=== PATIENT | female | born 1940 | race Caucasian/White ===

== ENCOUNTER 2016-04-17 20:26 | Observation (INO) ==
[2016-04-17 21:19] LABS: INR 1.3; Prothrombin Time 13.9 Seconds (9.4-12.1)
[2016-04-17 21:22] LABS: Activated Partial Thrombo Time 32.6 Seconds (26.0-36.0); Basophils # 0.1 K/mcL (0.0-0.2); Basophils % 0.7 %; Eosinophils # 0.6 K/mcL (0.0-0.6); Eosinophils % 4.9 %; Hematocrit 51.7 % (35.3-44.9); Hemoglobin 17.4 g/dL (11.5-15.4); Immature Granulocytes % 0.3 % (0-4); Lymphocytes # 2.3 K/mcL (0.6-4.6); Lymphocytes % 18.8 %; Mean Corpuscular HGB Conc 33.7 g/dL (31.6-35.5); Mean Corpuscular Hemoglobin 31.9 pg (28.0-33.3); Mean Corpuscular Volume 94.7 fL (83.0-100.0); Mean Platelet Volume 10.8 fL (9.4-12.4); Monocytes # 0.8 K/mcL (0.0-1.3); Monocytes % 6.3 %; Neutrophils # 8.4 K/mcL (1.6-8.9); Platelet Count 145 K/mcL (140-400); Red Blood Count 5.46 M/mcL (3.82-4.97); Red Cell Distribution Width 13.6 % (11.5-14.5)
[2016-04-17 21:30] LABS: Alanine Aminotransferase 19 Units/L (0-55); Albumin 3.8 g/dL (3.5-5.0); Albumin/Globulin Ratio 0.9 (1.1-2.2); Alkaline Phosphatase 55 Units/L (38-126); Aspartate Amino Transferase 17 Units/L (5-34); BUN/Creatinine Ratio 21 (6-26); Bilirubin,Total 1.8 mg/dL (0.2-1.2); Blood Urea Nitrogen 19 mg/dL (7-20); Calcium 9.9 mg/dL (8.6-10.8); Carbon Dioxide 23 mEq/L (19-29); Chloride 104 mEq/L (98-109); Globulin 4.3 g/dL (2.4-3.5); Glucose 136 mg/dL (70-99); Osmolality,Calculated 292 (280-300); Potassium 3.6 mEq/L (3.5-4.5); Sodium 139 mEq/L (136-145); Total Protein 8.1 g/dL (6.0-8.3); eGFR For African Americans > 60 (> 60); eGFR For Non-African Americans > 60 (> 60)
[2016-04-18] MEDS ORDERED: Aspirin 325 MG TABLET PO ONE (00:10)
--- NOTE | 2016-04-18 00:24 | Emergency Department Note ---
Disposition Clinical Impression: Weakness Disposition: Admitted As Inpatient Condition: Good Referrals: Salvador Alfredo MD [Primary Care Provider] - Forms: ED Satisfaction Letter General Adult HPI - General Chief complaint: ED Neuro Symptoms/Deficit Stated complaint: fear of a stroke Time Seen by Provider: 04/17/16 20:36 Source: patient Limitations: no limitations Nursing Notes Reviewed: Yes Vital Signs Reviewed: Yes - History of Present Illness HPI Narrative: This is a 75-year-old female with a history of CVA presents with concern for right leg weakness. She actually fell at home training and bili multiple times today. She denies striking her head. She does not recall if she is on anticoagulation. She denies any other weakness, difficulty with speaking or difficulty with swallowing. She has no ongoing neurological deficits from her previous stroke. She is fully functional and lives independently. Her onset of her symptoms was 8 AM this morning. NIH score on arrival was 1 Pain Scale: 0 - Related Data Home Medications Medication Instructions Recorded Confirmed Aspirin 325 mg PO DAILY 05/04/15 05/04/15 Carvedilol 12.5 mg PO BID 05/04/15 05/04/15 Febuxostat [Uloric] 40 mg PO DAILY 05/04/15 05/04/15 Hydrochlorothiazide 25 mg PO DAILY 05/04/15 05/04/15 Lactobacillus Acidophilus 1 each PO DAILY 05/04/15 05/04/15 [Acidophilus] Lisinopril [Zestril] 20 mg PO DAILY 05/04/15 05/04/15 Niacin [Niaspan] 500 mg PO DAILY 05/04/15 05/04/15 [place]-3 Fatty Acids [Fish Oil] 1,200 mg PO DAILY 05/04/15 05/04/15 Potassium Chloride [Klor-Con 10 meq PO BID 05/04/15 05/04/15 Sprinkle] Allergies Allergy/AdvReac Type Severity Reaction Status Date / Time adhesive tape AdvReac Blister Verified 05/04/15 11:37 Latex, Natural Rubber AdvReac Blister Verified 05/04/15 11:37 All systems ED: reviewed and negative except as stated. Past Medical History - Past Medical History Medical history: Reports: atrial fibrillation, cancer, CHF, coronary artery disease, CVA, hypertension Surgical history: Reports: hysterectomy, pacemaker/AICD Psychiatric history: Reports: no psych history - Social History Smoking Status: Current every day smoker Smokeless Tobacco Status: No Alcohol use: Reports: none Drug use: Reports: none Physical Exam Alert and oriented in no acute distress [place] warm and dry TMs clear bilaterally, extraocular muscle movements are normal, scleral icterus is absent Oropharynx is clear mucous members are moist Cardiovascular exam shows no murmur, rub, gallop Pulmonary exam shows clear lung sounds bilaterally no rales, rhonchi, wheezing Abdominal exam shows a soft and nontender abdomen Extremities are well perfused without clubbing, cyanosis, edema Neurologic exam shows weakness the right lower extremities with difficulty and plantar flexion strength is 3 out of 5. Strength is 5 out of 5 in all the extremities. Sensation instructed normal. Reflexes are checked and normal. - General Limitations: no limitations General appearance: alert, in no apparent distress, appears intoxicated Course Vital Signs Temperature 97.6 F 04/17/16 20:38 Pulse Rate 69 04/17/16 20:38 Respiratory Rate 16 04/17/16 20:38 Blood Pressure 173/92 04/17/16 20:38 O2 Sat by Pulse Oximetry 98 04/17/16 20:38 Temperature 97.6 F 04/17/16 20:38 Pulse Rate 82 04/17/16 22:47 Respiratory Rate 18 04/17/16 22:47 Blood Pressure 131/75 04/17/16 22:47 O2 Sat by Pulse Oximetry 94 L 04/17/16 22:47 Oxygen Delivery Oxygen Delivery Room Air Medical Decision Making - [facility] Narrative Medical decision making narrative: Suspect possible CVA given weakness and right lower extremity which is acute and has history of CVA. CT of the brain as well as CT angiography shows microvascular changes with possible remote infarct. CT scan of thoracic and lumbar spine to exclude acute fracture in the setting recent fall showed no acute findings. She has no objective findings of injuries from her fall. Her vital signs are stable. Full dose aspirin was given. She will be admitted for further stroke workup. - Lab Data Result diagrams: 04/17/16 20:53 04/17/16 20:53 Lab Results 04/17/16 04/17/16 04/17/16 Range/Units 20:53 20:53 20:53 WBC 12.2 H (4.3-11.1) K/mcL RBC 5.46 H (3.82-4.97) M/mcL Hgb 17.4 H (11.5-15.4) g/dL Hct 51.7 H (35.3-44.9) % MCV 94.7 (83.0-100.0) fL MCH 31.9 (28.0-33.3) pg MCHC 33.7 (31.6-35.5) g/dL RDW 13.6 (11.5-14.5) % Plt Count 145 (140-400) K/mcL MPV 10.8 (9.4-12.4) fL Immature Gran % 0.3 (0-4) % Seg Neutrophils % 69.0 % Lymphocytes % 18.8 % Monocytes % 6.3 % Eosinophils % 4.9 % Basophils % 0.7 % Neutrophils # 8.4 (1.6-8.9) K/mcL Lymphocytes # 2.3 (0.6-4.6) K/mcL Monocytes # 0.8 (0.0-1.3) K/mcL Eosinophils # 0.6 (0.0-0.6) K/mcL Basophils # 0.1 (0.0-0.2) K/mcL PT 13.9 H (9.4-12.1) Seconds INR 1.3 APTT 32.6 (26.0-36.0) Seconds Sodium 139 (136-145) mEq/L Potassium 3.6 (3.5-4.5) mEq/L Chloride 104 (98-109) mEq/L Carbon Dioxide 23 (19-29) mEq/L BUN 19 (7-20) mg/dL Creatinine 0.90 (0.57-1.11) mg/dL Est GFR ( Amer) > 60 (> 60) Est GFR (Non-Af Amer) > 60 (> 60) BUN/Creatinine Ratio 21 (6-26) Glucose 136 H (70-99) mg/dL Calculated Osmolality 292 (280-300) Lactic Acid (0.5-2.2) mmol/L Calcium 9.9 (8.6-10.8) mg/dL Total Bilirubin 1.8 H (0.2-1.2) mg/dL AST 17 (5-34) Units/L ALT 19 (0-55) Units/L Alkaline Phosphatase 55 (38-126) Units/L Troponin I (0-0.03) ng/mL Serum Total Protein 8.1 (6.0-8.3) g/dL Albumin 3.8 (3.5-5.0) g/dL Globulin 4.3 H (2.4-3.5) g/dL Albumin/Globulin Ratio 0.9 L (1.1-2.2) 04/17/16 04/17/16 Range/Units 20:53 21:42 WBC (4.3-11.1) K/mcL RBC (3.82-4.97) M/mcL Hgb (11.5-15.4) g/dL Hct (35.3-44.9) % MCV (83.0-100.0) fL MCH (28.0-33.3) pg MCHC (31.6-35.5) g/dL RDW (11.5-14.5) % Plt Count (140-400) K/mcL MPV (9.4-12.4) fL Immature Gran % (0-4) % Seg Neutrophils % % Lymphocytes % % Monocytes % % Eosinophils % % Basophils % % Neutrophils # (1.6-8.9) K/mcL Lymphocytes # (0.6-4.6) K/mcL Monocytes # (0.0-1.3) K/mcL Eosinophils # (0.0-0.6) K/mcL Basophils # (0.0-0.2) K/mcL PT (9.4-12.1) Seconds INR APTT (26.0-36.0) Seconds Sodium (136-145) mEq/L Potassium (3.5-4.5) mEq/L Chloride (98-109) mEq/L Carbon Dioxide (19-29) mEq/L BUN (7-20) mg/dL Creatinine (0.57-1.11) mg/dL Est GFR ( Amer) (> 60) Est GFR (Non-Af Amer) (> 60) BUN/Creatinine Ratio (6-26) Glucose (70-99) mg/dL Calculated Osmolality (280-300) Lactic Acid 1.5 (0.5-2.2) mmol/L Calcium (8.6-10.8) mg/dL Total Bilirubin (0.2-1.2) mg/dL AST (5-34) Units/L ALT (0-55) Units/L Alkaline Phosphatase (38-126) Units/L Troponin I 0.01 (0-0.03) ng/mL Serum Total Protein (6.0-8.3) g/dL Albumin (3.5-5.0) g/dL Globulin (2.4-3.5) g/dL Albumin/Globulin Ratio (1.1-2.2)
[2016-04-18 05:10] LABS: Bilirubin,Urine Negative (Negative); Blood,Urine Trace (Negative); Clarity,Urine Cloudy (Clear); Color,Urine Dark Yellow (Yellow); Glucose,Urine (UA) Normal (Normal); Ketones,Urine Negative (Negative); Leukocyte Esterase,Urine Large (Negative); Nitrite,Urine Negative (Negative); Protein,Urine Negative (Neg-Trace); Specific Gravity,Urine > 1.030 (1.010-1.025); Urobilinogen,Urine Normal (Normal)
[2016-04-18 05:12] LABS: Bacteria,Urine Moderate per hpf (None-Few); Hyaline Casts,Urine None Seen per lpf (None-Few); Squamous Epithelial Cell,Urine Many per lpf (None-Few); WBC,Urine TNTC per hpf (0-3)
[2016-04-18] MEDS ORDERED: *HR* Heparin 5,000 UNIT/ML VIAL SQ SCH (07:00)
[2016-04-18] MEDS ORDERED: hydrALAZINE 25 MG TABLET PO PRN (07:21)
--- NOTE | 2016-04-18 08:46 | Internal Med History&Physical ---
Date of Encounter: 04/18/16 Time of Encounter: 08:00 Assessment and Plan (1) Weakness Current visit: Yes Status: Acute worsening of right-leg weakness since yesterday at 7am. Could be secondary to UTI versus acute CVA. Prior CVA in 2014 with residual mild right leg weakness that did not impede her from walking. CT cervical spine was negative for any acute abnormality. CT thoracic and lumbar spine was negative for a fracture and showed multilevel degenerative disc disease characterized by disc height loss, vacuum phenomenon and osteophyte formation. There is moderate to severe left-sided osseous neural foraminal stenosis at L5-S1 and moderate right-sided osseous neural foraminal stenosis at the same disc level. CTA head revealed no acute intracranial abnormality, mild atherosclerotic plaquing in the internal carotid artery and proximal intracranial left vertebral arteries without stenosis. Chronic vascular ischemic changes and remote lacunar infarcts in the left basal ganglia. CT of the neck revealed no acute arterial abnormality in the neck, moderate stenosis of the proximal left internal carotid artery 50%, normal vertebral artery arteries, noncalcified atherosclerotic plaque at the right carotid bifurcation without stenosis. PLAN: Patient cannot undergo MRI of the brain due to pacemaker. Neuro consulted PT/OT consulted. Continue aspirin. Treat UTI. (2) UTI (urinary tract infection) Current visit: Yes Status: Acute Patient reports a seven-day history of polyuria and urinary frequency. Urinalysis was cloudy, large leukocytes sterease, pyuria and moderate presence of bacteria. Start IV ceftriaxone. Urine culture. Qualifiers: Urinary tract infection type: acute cystitis Hematuria presence: without hematuria Qualified Code(s): N30.00 - Acute cystitis without hematuria (3) Atrial fibrillation Current visit: Yes Status: Acute History of paroxysmal atrial fibrillation. Normal sinus rhythm. Continue Coreg. Qualifiers: Atrial fibrillation type: chronic Qualified Code(s): I48.2 - Chronic atrial fibrillation (4) HTN (hypertension) Current visit: No Status: Chronic Well controlled. Holding home dose of lisinopril and hydrochlorothiazide. We will continue to monitor. Qualifiers: Hypertension type: essential hypertension Qualified Code(s): I10 - Essential (primary) hypertension (5) CHF (congestive heart failure) Current visit: Yes Status: Acute Compensated. Unknown type of CHF. Check echocardiogram. No signs of fluid overload. Continue Coreg. Holding home dose of lisinopril due to normal blood pressure. Qualifiers: Congestive heart failure type: unspecified congestive heart failure type Congestive heart failure chronicity: chronic Qualified Code(s): I50.9 - Heart failure, unspecified (6) Pacemaker Current visit: No Status: Chronic (7) CVA (cerebral vascular accident) Current visit: No Status: Chronic Prior history of CVA in 2015 with residual right-sided leg weakness. Continue home dose aspirin and blood pressure control. Qualifiers: CVA mechanism: unspecified Qualified Code(s): I63.9 - Cerebral infarction, unspecified Internal Medicine - H&P: HPI Chief complaint: Right-sided weakness since yesterday morning. Plans for Post Hospital Care: Transfer Inp Rehab Fac History of present illness: Ms. Rao is a 75 year old female with a past medical history of CAD, hypertension, atrial fibrillation, pacemaker implantation, heart failure, prior CVA in 2014 with residual right-sided weakness and tobacco use. Yesterday at 7 AM, patient woke up and had to [place] to the bathroom due to urinary urgency. She could not stand up because her right leg was very weak and and she wet herself on the bed. During the day, her right leg weakness persisted and she fell twice on her right side. No head injury. She finally decided to, yesterday evening to our ED. She denies any chest pain, shortness of breath, syncope, headache, dizziness, bleeding, dysarthria, vision problems, ataxia, or weakness in any other extremity. Upon questioning, patient reports urinary frequency and polyuria for the past 7 days. No fever. No dysuria. Good fluid intake. In our ED, blood pressure 173/92 and rest of vitals stable. She received 325 mg of aspirin. Currently, she describes her right lower extremity weaker than usual. Past Med Surg Social Fam HX - Past Medical History Medical history: atrial fibrillation, cancer, CHF, coronary artery disease, CVA , hypertension Psychiatric history: no psych history - Past Surgical History Surgical History: hysterectomy, pacemaker/AICD - Social History Smoking Status: Current every day smoker Packs per day: 0.5 Smokeless Tobacco Status: No Alcohol use: none Drug use: none - Family History Mother History Unknown: Yes Internal Medicine - H&P: Meds Aspirin 325 mg PO DAILY 05/04/15 [History] Carvedilol 12.5 mg PO BID 05/04/15 [History] Hydrochlorothiazide 12.5 mg PO DAILY 05/04/15 [History] Lisinopril [Zestril] 20 mg PO DAILY 05/04/15 [History] Niacin [Niaspan] 500 mg PO HS 05/04/15 [History] [place]-3 Fatty Acids [Fish Oil] 1,200 mg PO DAILY 05/04/15 [History] Potassium Chloride [Klor-Con Sprinkle] 10 meq PO BID 05/04/15 [History] Allergies adhesive tape Adverse Reaction (Verified 05/04/15 11:37) Blister Latex, Natural Rubber Adverse Reaction (Verified 05/04/15 11:37) Blister All Systems PM: A 10-system review of systems was performed and is negative for pertinent findings except as documented above in the HPI. - Constitutional Vitals: Temp Pulse Resp BP Pulse Ox 97.8 F 69 17 126/80 96 04/18/16 07:09 04/18/16 07:09 04/18/16 07:09 04/18/16 07:09 04/18/16 07:09 General appearance: Present: A&O X 3, pleasant, no acute distress, answers questions appropriately - Eye Eye exam: Present: PERRL, sclera anicteric - Neck Neck exam general surgery: Present: supple, trachea midline. Absent: lymphadenopathy - Respiratory Respiratory exam: Present: CTAB - Cardiovascular Cardiovascular exam: Present: RRR - GI/Abdominal GI/Abdominal exam: Present: normal bowel sounds, soft. Absent: distended, tenderness - Extremities Exam Extremities exam: Absent: pedal edema (her hands turn bluishish in the cold for a few minutes. ) - Back Exam Back exam: Absent: CVA tenderness (L), CVA tenderness (R) - Neurological Exam Neurological exam: Present: alert, CN II-XII intact, oriented X3. Absent: facial droop, speech deficit Additional comments: right-sided leg strength is mildly diminished compare to left leg 4/5. gait is slow. - Skin Skin exam: Absent: rash Internal Med - H&P Results - Labs CBC & Chem 7: 04/17/16 20:53 04/17/16 20:53 Labs: Urine 04/18/16 Range/Units 05:00 Urine Color Dark Yellow (Yellow) Urine Clarity Cloudy A (Clear) Urine pH 5.0 (5.0-8.0) pH Units Ur Specific [place] > 1.030 H (1.010-1.025) Urine Protein Negative (Neg-Trace) mg/dL Urine Glucose (UA) Normal (Normal) mg/dL
[2016-04-18] MEDS: Nicotine 14 MG PATCH.TD24 TD SCH (09:17)
[2016-04-18] MEDS: Aspirin 325 MG TABLET PO SCH (09:17)
--- NOTE | 2016-04-18 15:23 | Neurology - Consult Note ---
<Salazar Bailey - Last Filed: 04/18/16 16:01> Date of Encounter: 04/18/16 Time of Encounter: 15:20 Assessment and Plan (1) Weakness Current Visit: Yes Status: Acute - Patient had a fall and does have ecchymosis/pain/swelling to R great toe, will add on XR - She states she thinks this is why her leg feels slightly weaker than usual and why she was having trouble walking - Neurological exam is non-focal and essentially at her baseline. This does seem improved from previous documentation for this hospital visit - Already on aspirin, continue - H/o CVA and symptoms are completely dissimilar to previous although it did leave her with very mild residual RLE weakness (2014) - No further imaging at this time, CTA head did not show any acute abnormality, CTA neck, CT C/T/L also performed with no acute abnormality. MRI unavailable 2/ 2 PPM - Further recommendations pending attending evaluation History of Present Illness Chief complaint: R great toe pain/weakness HPI: Ms. Rao is a 75 year old female who presented through the ED with the CC of R great toe pain and R leg weakness. She reports that she slipped last night while in the bathroom and injured her R foot. Also reports falling a few times over the last 1-2 days 2/2 weakness in her R leg that is slightly worse than usual. She states she had just gotten up and tried to make it to the bathroom quickly b/c she had to urinate. Denies any LOC but doesn't remember exactly how she injured her toe. States the toe and foot has felt weak since then. Has been able to ambulate. Denies any ankle /tib/fib/knee/thigh/hip/back pain. Denies headache, changes in vision, neck pain. Denies any other symptoms. Furthermore, she does have a history of stroke which left her with some very mild residual R sided leg weakness and states this feels "absolutely nothing like that" She thinks she just hurt her toe and that is what was causing her lower leg to feel weak. Past Med Surg Social Fam HX - Past Medical History Medical history: atrial fibrillation, cancer, CHF, coronary artery disease, CVA , hypertension Psychiatric history: no psych history - Past Surgical History Surgical History: hysterectomy, pacemaker/AICD - Social History Smoking Status: Current every day smoker Packs per day: 0.5 Smokeless Tobacco Status: No Alcohol use: none Drug use: none - Family History Mother History Unknown: Yes Medications and Allergies Aspirin 325 mg PO DAILY 05/04/15 [History] Carvedilol 12.5 mg PO BID 05/04/15 [History] Hydrochlorothiazide 12.5 mg PO DAILY 05/04/15 [History] Lisinopril [Zestril] 20 mg PO DAILY 05/04/15 [History] Niacin [Niaspan] 500 mg PO HS 05/04/15 [History] [place]-3 Fatty Acids [Fish Oil] 1,200 mg PO DAILY 05/04/15 [History] Potassium Chloride [Klor-Con Sprinkle] 10 meq PO BID 05/04/15 [History] Allergies adhesive tape Adverse Reaction (Verified 05/04/15 11:37) Blister Latex, Natural Rubber Adverse Reaction (Verified 05/04/15 11:37) Blister All Systems: A 10-system review of systems was performed and is negative for pertinent findings except as documented above in the HPI. - Constitutional Constitutional ROS IM: no fatigue, no fever(s) - Eyes Eyes: bilateral: blurred vision (negative ) - Nose, Mouth, Throat Nose, mouth and throat: no dizziness, no headache(s) - Cardiovascular Cardiovascular ROS IM: no chest pain, no dyspnea on exertion, no syncope - Respiratory Respiratory IM: no cough, no dyspnea - Gastrointestinal Gastrointestinal: no abdominal pain, no dysphagia - Musculoskeletal Musculoskeletal ROS IM: abnormal gait (secondary to pain in her right great toe ), no back pain, no joint swelling, no neck pain, no radiating pain into limb Musculoskeletal: right: foot pain - Integumentary Integumentary IM: other (ecchymosis to R great toe s/p fall) - Neurological Neurological ROS: abnormal gait (2/2 pain in R great toe ) - Hematologic/Lymphatic Hematologic/Lymphatic pediatric: easy bruising Physical Examination - Vital Signs Vital Signs: Initial Vital Signs Temp Pulse Resp BP Pulse Ox 97.6 F 69 16 173/92 98 04/17/16 20:38 04/17/16 20:38 04/17/16 20:38 04/17/16 20:38 04/17/16 20:38 - Constitutional General appearance: comfortable - Neurologic Detailed motor examination: grossly full strength in all extremities, full strength in all major muscle groups Motor examination - right side: 4/5: toe extension (EHL) (limited primarily by pain, patient also verbally reports limited only to pain), plantarflexion (again , only limited by pain in her great toe), 5/5: deltoids, biceps, triceps, wrist flexion, wrist extension, rv repairer, hip flexors, tibialis Anterior, quadriceps Motor examination - left side: 55: deltoids, biceps, triceps, wrist flexion, wrist extension, hip flexors, rv repairer, quadriceps, tibialis Anterior, toe extension (EHL), plantarflexion Detailed sensory examination: intact, light touch Reflexes: Patella: 2+, Achilles: 2+ Mental Status Examination: awake, alert, oriented to person, oriented to place, oriented to time, follows commands appropriately, answers questions appropriately, no agnosia, no aphasia, no aproxia Cranial nerve examination: PERRL, EOMI, visual francois intact, sensory to face intact, mastication intact, no facial asymmetry is present, hearing is intact symmetrically, soft palate elevates bilaterally upon phonation, flexes SCM and trapezius muscles symmetrically with full power, tongue protrudes midline, no atrophy or facial fasiculations present Cerebellar examination: no dysmetria, performs finger to nose and heel to medley symmetrically without ataxia, no truncal ataxia, no difficulty with rapid alternating movements Results - Laboratory Findings CBC and BMP: 04/17/16 20:53 04/17/16 20:53 Abnormal lab findings: Abnormal lab results WBC 12.2 K/mcL (4.3-11.1) H 04/17/16 20:53 RBC 5.46 M/mcL (3.82-4.97) H 04/17/16 20:53 Hgb 17.4 g/dL (11.5-15.4) H 04/17/16 20:53 Hct 51.7 % (35.3-44.9) H 04/17/16 20:53 PT 13.9 Seconds (9.4-12.1) H 04/17/16 20:53 Glucose 136 mg/dL (70-99) H 04/17/16 20:53 Total Bilirubin 1.8 mg/dL (0.2-1.2) H 04/17/16 20:53 Globulin 4.3 g/dL (2.4-3.5) H 04/17/16 20:53 Albumin/Globulin Ratio 0.9 (1.1-2.2) L 04/17/16 20:53 Urine Clarity Cloudy (Clear) A 04/18/16 05:00 Ur Specific [place] > 1.030 (1.010-1.025) H 04/18/16 05:00 Urine Blood Trace (Negative) H 04/18/16 05:00 Ur Leukocyte Esterase Large (Negative) H 04/18/16 05:00 Urine Microscopic RBC 5-15 per hpf (0-3) H 04/18/16 05:00 Urine Microscopic WBC TNTC per hpf (0-3) H 04/18/16 05:00 Ur Squamous Epith Cells Many per lpf (None-Few) H 04/18/16 05:00 Urine Bacteria Moderate per hpf (None-Few) H 04/18/16 05:00 Ur Culture Indicated? YES (NO) A 04/18/16 05:00 Consult Discharge Plan - Plan [facility] [place]Primary Care Provider] - <Sae Fragoso I - Last Filed: 04/18/16 16:34> Date of Encounter: 04/18/16 Assessment and Plan (1) Weakness Current Visit: Yes Status: Acute Patient seen and examined agree with Dr. Lincoln assessment. Though she did have a history of previous stroke but at the same time I did not notice any new focal findings on her examination to be concern of new stroke. She is already on an aspirin suggest to continue imaging studies reviewed no evidence of any critical stenosis She will continue same medication for other treatment as per primary care call us if needed Sae Fragoso MD History of Present Illness HPI: Ms. Rao is a 75 year old female All Systems: A 10-system review of systems was performed and is negative for pertinent findings except as documented above in the HPI. Physical Examination - Vital Signs Vital Signs: Initial Vital Signs Temp Pulse Resp BP Pulse Ox 97.6 F 69 16 173/92 98 04/17/16 20:38 04/17/16 20:38 04/17/16 20:38 04/17/16 20:38 04/17/16 20:38 Results - Laboratory Findings CBC and BMP: 04/17/16 20:53 04/17/16 20:53 Abnormal lab findings: Abnormal lab results WBC 12.2 K/mcL (4.3-11.1) H 04/17/16 20:53 RBC 5.46 M/mcL (3.82-4.97) H 04/17/16 20:53 Hgb 17.4 g/dL (11.5-15.4) H 04/17/16 20:53 Hct 51.7 % (35.3-44.9) H 04/17/16 20:53 PT 13.9 Seconds (9.4-12.1) H 04/17/16 20:53 Glucose 136 mg/dL (70-99) H 04/17/16 20:53 Total Bilirubin 1.8 mg/dL (0.2-1.2) H 04/17/16 20:53 Globulin 4.3 g/dL (2.4-3.5) H 04/17/16 20:53 Albumin/Globulin Ratio 0.9 (1.1-2.2) L 04/17/16 20:53 Urine Clarity Cloudy (Clear) A 04/18/16 05:00 Ur Specific [place] > 1.030 (1.010-1.025) H 04/18/16 05:00 Urine Blood Trace (Negative) H 04/18/16 05:00 Ur Leukocyte Esterase Large (Negative) H 04/18/16 05:00 Urine Microscopic RBC 5-15 per hpf (0-3) H 04/18/16 05:00 Urine Microscopic WBC TNTC per hpf (0-3) H 04/18/16 05:00 Ur Squamous Epith Cells Many per lpf (None-Few) H 04/18/16 05:00 Urine Bacteria Moderate per hpf (None-Few) H 04/18/16 05:00 Ur Culture Indicated? YES (NO) A 04/18/16 05:00
--- NOTE | 2016-04-18 15:27 | ECHO - Doppler Report ---
Echo with Saline Contrast Name: Monica Rao Date of Study: 04/18/2016 Date: 1940 Ht: 63.0 in Medical Record#: [id number] Age: 75 Wt: 173.0 lb Gender: Female BSA: 1.82 Order #: [id number] Location: [facility] Room #: 3B54 Reading Physician: Char Bowser DO Chief Technology Officer: Roxanna Hubbard RVT, [facility] Ordering Physician: Tere Velazquez MD Primary Physician: Salvador Alfredo MD Indications: Suspected CVA/TIA Impressions: LVEF 60%. Normal left ventricular size and systolic function. Normal right ventricular size and function. Mild-moderate tricuspid regurgitation. Mild pulmonary hypertension. Saline contrast bubble study is positive after 7 cardiac cycles suggestive of a pulmonary AVM without evidence for PFO. Left Ventricular Wall Motion: Rest Echo Findings All wall segments showed normal motion. Findings: Study Quality * Technically adequate exam. Left Ventricle * LVEF 60%. * Normal LV chamber size, wall thickness and function. * Indeterminate diastolic function. Mitral Valve * Normal mitral valve structure. * No mitral stenosis. * No mitral regurgitation. * Mild mitral annular calcification * Mildly calcified mitral valve leaflets. Aortic Valve * No aortic regurgitation. * Aortic valve not well visualized. * No aortic stenosis. Tricuspid Valve * Tricuspid valve not well visualized. * Mild-moderate tricuspid regurgitation. * Estimated RA pressure is 3 mmHg. * Estimated RVSP is 39 mmHg. * Mild pulmonary hypertension. Pulmonic Valve * Pulmonic valve is not well visualized. * No pulmonic stenosis. * No pulmonic regurgitation. Pulmonary Artery * Pulmonary artery not well visualized. Right Ventricle * Normal right ventricular structure and function. Left Atrium * Moderately dilated left atrium. ECG Findings * Atrial fibrillation. IVC * Normal IVC dimensions and inspiratory collapse. Right Atrium * Severely dilated right atrium. Interatrial Septum * No evidence of PFO with agitated saline contrast. Pericardium * There is no pericardial effusion present. Aorta * Normally sized aortic root. History Hypertension History of Smoking Years Packs 0.5 History of CAD/PTCA Congestive Heart Failure Pacer/ICD Implant 11-25-2013 a Previous Echo was performed. Contrast: Agitated saline 20 ml. Measurements: BP: 126/ 80 2D Normal Values RVIDd: 3.00 cm <2.7 cm IVSd: 1.20 cm 0.6 - 1.0 cm LVIDd: 3.50 cm 3.7 - 5.6 cm LVPWd: 1.20 cm 0.6 - 1.1 cm LVIDs: 2.40 cm 1.5 - 3.6 cm AO: 2.60 cm < 4.0 cm LA: 3.90 cm 2.0 - 4.0cm %FS: 31.40 cm >25 % LA volume: 72 Mitral Valve Dec Time:342.00 msec Peak E:1.21 m/sec Peak E' Lat Dimas:8.38 cm/s Peak E' Med Dimas:12.3 cm/s E/E' Lat Ratio:14.4 E/E' Med Ratio:9.8 Tricuspid Valve TV Regurg Peak Grad: 36.00mmHg TV Regurg Peak Dimas: 3.01m/sec Updated by Char Bowser on 04/18/2016 3:20:06 PM electronically signed on 04/18/2016 3:21:38 PM with status of Final Wall Motion [place]: 1=Normal, 2=Hypokinesis, 3=Akinesis, 4=Dyskinesis, 5=Aneurysmal, 6=Hyperkinetic, X=Not Visualized (Blank)=Missing
[2016-04-18] MEDS ORDERED: Niacin (24 HR) 500 MG TAB.ER.24H PO SCH (21:00)
--- NOTE | 2016-04-18 21:26 | Electrocardiograph Report ---
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
[2016-04-19 05:55] LABS: Basophils # 0.1 K/mcL (0.0-0.2); Basophils % 1.1 %; Eosinophils # 0.9 K/mcL (0.0-0.6); Eosinophils % 8.5 %; Hematocrit 47.7 % (35.3-44.9); Immature Granulocytes % 0.3 % (0-4); Lymphocytes # 3.1 K/mcL (0.6-4.6); Lymphocytes % 31.3 %; Mean Corpuscular HGB Conc 32.5 g/dL (31.6-35.5); Mean Corpuscular Hemoglobin 31.5 pg (28.0-33.3); Monocytes # 0.9 K/mcL (0.0-1.3); Monocytes % 9.3 %; Neutrophils # 4.9 K/mcL (1.6-8.9); Platelet Count 143 K/mcL (140-400); Red Blood Count 4.92 M/mcL (3.82-4.97); Red Cell Distribution Width 13.6 % (11.5-14.5); Segmented Neutrophils % 49.5 %
[2016-04-19 06:11] LABS: Alanine Aminotransferase 13 Units/L (0-55); Albumin 3.2 g/dL (3.5-5.0); Albumin/Globulin Ratio 0.8 (1.1-2.2); Alkaline Phosphatase 51 Units/L (38-126); Aspartate Amino Transferase 21 Units/L (5-34); BUN/Creatinine Ratio 25 (6-26); Bilirubin,Direct 0.4 mg/dL (0.0-0.5); Bilirubin,Indirect 0.8 mg/dL (0.0-1.2); Bilirubin,Total 1.2 mg/dL (0.2-1.2); Blood Urea Nitrogen 22 mg/dL (7-20); Calcium 9.4 mg/dL (8.6-10.8); Carbon Dioxide 27 mEq/L (19-29); Chloride 107 mEq/L (98-109); Globulin 3.9 g/dL (2.4-3.5); Glucose 99 mg/dL (70-99); Magnesium 2.2 mg/dL (1.6-2.6); Osmolality,Calculated 301 (280-300); Potassium 4.2 mEq/L (3.5-4.5); Sodium 144 mEq/L (136-145); Total Protein 7.1 g/dL (6.0-8.3); eGFR For African Americans > 60 (> 60); eGFR For Non-African Americans > 60 (> 60)
[2016-04-19 06:15] LABS: Hemoglobin 15.5 g/dL (11.5-15.4)
[2016-04-19 07:10] VITALS: BP 156/79
[2016-04-19] MEDS: Aspirin 325 MG TABLET PO SCH (09:10)
[2016-04-19] MEDS: Nicotine 14 MG PATCH.TD24 TD SCH (09:10)
--- NOTE | 2016-04-19 10:47 | Discharge Summary ---
Date of Encounter: 04/19/16 Time of Encounter: 10:30 - Discharge Diagnosis (1) Weakness Priority: Primary Status: Acute (2) Atrial fibrillation Priority: Secondary Status: Acute Qualifiers: Atrial fibrillation type: chronic Qualified Code(s): I48.2 - Chronic atrial fibrillation (3) CHF (congestive heart failure) Priority: Secondary Status: Acute Qualifiers: Congestive heart failure type: unspecified congestive heart failure type Congestive heart failure chronicity: chronic Qualified Code(s): I50.9 - Heart failure, unspecified (4) UTI (urinary tract infection) Priority: Secondary Status: Acute Qualifiers: Urinary tract infection type: acute cystitis Hematuria presence: without hematuria Qualified Code(s): N30.00 - Acute cystitis without hematuria (5) CVA (cerebral vascular accident) Priority: Secondary Status: Chronic Qualifiers: CVA mechanism: unspecified Qualified Code(s): I63.9 - Cerebral infarction, unspecified (6) HTN (hypertension) Priority: Secondary Status: Chronic Qualifiers: Hypertension type: essential hypertension Qualified Code(s): I10 - Essential (primary) hypertension (7) Pacemaker Priority: Secondary Status: Chronic - Discharge Medications Prescriptions: Nitrofurantoin (BID) [Macrobid] 100 mg PO BID #10 capsule Home Medications: Aspirin 325 mg PO DAILY 05/04/15 [History] Carvedilol 12.5 mg PO BID 05/04/15 [History] Lisinopril [Zestril] 20 mg PO DAILY 05/04/15 [History] Niacin [Niaspan] 500 mg PO HS 05/04/15 [History] Potassium Chloride [Klor-Con Sprinkle] 10 meq PO BID 05/04/15 [History] Fish Oil/Dha/Epa [Fish Oil 1,200 mg Fish Oil] 1 each PO DAILY 04/18/16 [History] Hydrochlorothiazide 12.5 mg PO DAILY 04/18/16 [History] Nitrofurantoin (BID) [Macrobid] 100 mg PO BID #10 capsule 04/19/16 [Rx] Allergies/Adverse Reactions: Allergies adhesive tape Adverse Reaction (Verified 05/04/15 11:37) Blister Latex, Natural Rubber Adverse Reaction (Verified 05/04/15 11:37) Blister Procedures/tests Complete & Pending: Procedures Performed prior 72 hours Category Date Time Status EV echocardiogram Routine Y 04/18/16 05:59 Completed Date of admission: 04/18/16 00:44 Primary care physician: Salvador Alfredo MD Consults: 04/18/16 05:59 Consult to Neurology [CONS] Routine Consulting Provider: Neurology [facility] Reason for Consult: Suspected CVA / TIA Call Completed: No Consult to Occupational Therapy [CONS] Routine Comment: Evaluate, develop and implement POC Consult to Physical Therapy [CONS] Routine Comment: Evaluate, develop and implement POC Consult to Speech Therapy [CONS] Routine Comment: Evaluate, develop and implement POC Reason for Consult: Suspected CVA / TIA Call Completed: No Discharging clinician: Leslie Dash Anticipated date of discharge: 04/19/16 - Patient Status Disposition: Home, Self-Care Condition: Good Functional capacity at discharge: independent ambulation Overall status at discharge: patient is back to baseline - Discharge Instructions Instructions: Atrial Fibrillation (DC), Urinary Tract Infection in Women (DC), Chronic Hypertension (DC) Follow Up With: Salvador Alfredo MD [Primary Care Provider] - (In 1-2 weeks) Nahun Hansen MD [Partnered Physician] - (Left internal carotid artery stenosis) Additional Instructions: Outpatient physical therapy for right leg weakness and previous stroke - Diet and Activity Activity: as per physical therapy Diet: low fat, low cholesterol, low salt diet Hospital course: Ms. Rao is a 75 year old female with a history of essential hypertension, previous CVA who was observed in the hospital after presenting with right leg weakness. She was evaluated for possible TIA/stroke with CT of the head, CTA of the head and neck and also neurology evaluation. Patient's CT scan of the head did not show any acute stroke. CT scan of the neck showed moderate stenosis of the proximal left carotid artery measuring up to 50%. Neurology recommended continuing medical management as the patient did not appear to have any new stroke. She was evaluated by physical therapy and recommended outpatient PT. At this time, the patient is stable to be discharged home. Will recommend follow-up with primary care provider and also will refer to vascular surgery for further management of her left internal carotid artery stenosis. - Time Spent with Patient Total time spent providing and/or coordinating discharge services: Less than 30 minutes (20 min) - Constitutional Vitals: Temp Pulse Resp BP Pulse Ox 98.0 F 81 16 156/79 94 L 04/19/16 07:06 04/19/16 07:06 04/19/16 07:06 04/19/16 07:06 04/19/16 07:06 General appearance: Present: A&O X 3, pleasant, no acute distress, answers questions appropriately - Neck Neck exam general surgery: Present: supple, trachea midline. Absent: lymphadenopathy - Cardiovascular Cardiovascular exam: Present: RRR, +S1, +S2. Absent: diastolic murmur, gallop, rubs, systolic murmur - Extremities Exam Extremities exam: Present: warm, radial pulses palpable and symetrical. Absent : calf tenderness, cyanotic, pedal edema Additional comments: Swelling and ecchymosis of the right great toe and right first metatarsal on the dorsal surface - Neurological Exam Neurological exam: Present: CN II-XII intact, oriented X3, no focal deficits. Absent: facial droop, speech deficit - Psychiatric Psychiatric exam: Present: normal affect, normal mood - Attending Attestation This document has been at least partially created by iPling voice recognition technology by Dr. Dash. Errors in grammar, wording or other phrases may exist. If errors are found after the documentation is signed, they will be addressed individually in the addendum section of this document when appropriate.
== END 2016-04-19 12:59 | disposition home or self-care (01) ==
LOC: EMEROO 20:26 → 3BNU 20:26 → SUATTDRO 04-18 00:44 → 3BNU 04-18 01:10
PROVIDERS: ADMIT Internal Medicine; ATTEND Internal Medicine

== ENCOUNTER 2016-07-25 15:48 | Observation (INO) ==
[2016-07-25] MEDS ORDERED: 0.9 % Sodium Chloride 1,000 ML IVC ONE (16:16)
--- NOTE | 2016-07-25 16:30 | Emergency Department Note ---
Disposition Clinical Impression: Dysarthria, UTI (urinary tract infection), Carotid artery disease, Cerebrovascular disease, Pacemaker, Frail elderly, CAD (coronary artery disease) , HTN (hypertension), Thrombocythemia, Chest pain Disposition: Admitted As Inpatient Referrals: Salvador Alfredo MD [Primary Care Provider] - Forms: ED Satisfaction Letter General Adult HPI - General Chief complaint: ED Neuro Symptoms/Deficit Stated complaint: AMS per Dr Mccarthy Source: patient Limitations: no limitations - History of Present Illness HPI Narrative: 76-year-old female with a history of previous CVA reports to the emergency department with difficulty speaking for the last 4 days. She decided to see her primary care physician about her concerns, Dr. Mccarthy evaluated her and sent her to the emergency department. The patient states she has had slurred speech which is new, she has a history of chronic right lower extremity weakness which is unchanged. The patient has had no upper extremity weakness or numbness or left lower extremity weakness or numbness no facial weakness or numbness no difficulty with headaches. She reports she is to be anticoagulated and had bleeding in her brain. The patient does not take blood thinners now. She describes intermittent visual abnormalities. There is no history of headache neck stiffness rash or fever. She had some chest pain intermittently as well. There is no history of tearing back pain about pain vomiting or diarrhea no efrain shorts of breath. No abdominal pain. The patient has not fallen or had a seizure. There is no history of cool blue weak or numb arms or legs apart from chronic right lower extremity weakness which is unchanged. Pain Scale: 0 - Related Data Home Medications Medication Instructions Recorded Confirmed Aspirin 325 mg PO DAILY 05/04/15 07/25/16 Carvedilol 12.5 mg PO BID 05/04/15 07/25/16 Lisinopril [Zestril] 20 mg PO DAILY 05/04/15 07/25/16 Niacin [Niaspan] 500 mg PO HS 05/04/15 07/25/16 Potassium Chloride [Klor-Con 10 meq PO BID 05/04/15 07/25/16 Sprinkle] Fish Oil/Dha/Epa [Fish Oil 1,200 1 each PO DAILY 04/18/16 07/25/16 mg Fish Oil] Hydrochlorothiazide 12.5 mg PO DAILY 04/18/16 07/25/16 Febuxostat [Uloric] 40 mg PO DAILY 07/25/16 07/25/16 Allergies Allergy/AdvReac Type Severity Reaction Status Date / Time adhesive tape AdvReac Blister Verified 05/04/15 11:37 Latex, Natural Rubber AdvReac Blister Verified 05/04/15 11:37 All systems ED: reviewed and negative except as stated. Past Medical History - Past Medical History Medical history: Reports: atrial fibrillation, cancer, CHF, coronary artery disease, CVA, hypertension Surgical history: Reports: hysterectomy, pacemaker/AICD Psychiatric history: Reports: no psych history - Social History Smoking Status: Current every day smoker Smokeless Tobacco Status: No Alcohol use: Reports: none Drug use: Reports: none Physical Exam - General Limitations: no limitations General appearance: alert, in no apparent distress - Head Head exam: atraumatic, normocephalic, normal inspection - Eye Eye exam: Present: normal appearance, PERRL, EOMI - ENT ENT exam: normal exam, normal oropharynx, mucous membranes moist, TM's normal bilaterally, normal external ear exam - Neck Neck exam: Present: normal inspection, full ROM, trachea midline. Absent: meningismus - Chest Chest inspection: Present: symmetric chest wall rise. Absent: tenderness - Respiratory Respiratory exam: Present: normal lung sounds bilaterally. Absent: respiratory distress, wheezes, accessory muscle use, prolonged expiratory phase - Cardiovascular Cardiovascular exam: Present: regular rate, normal rhythm, normal heart sounds - Abdominal Exam Abdominal exam: Present: soft, Non-Tender, normal bowel sounds. Absent: tenderness, distention, guarding, rebound, rigidity - Extremities Exam Extremities exam: Present: normal inspection, full ROM, normal capillary refill. Absent: tenderness, pedal edema, joint swelling, calf tenderness - Expanded Lower Extremity Exam Lower leg exam: Absent: Homans' sign Neurovascular/Tendon exam: Present: normal capillary refill. Absent: pulse deficit, motor deficit, sensory deficit, tendon deficit, extremity cold to touch , pallor - Back Exam Back exam: Present: normal inspection, full ROM. Absent: tenderness, CVA tenderness (R), CVA tenderness (L), vertebral tenderness - Neurological Exam Neurological exam: Present: alert, oriented X3, CN II-XII intact, motor sensory deficit (Right lower extremity versus left, upper extremities and left lower extremity showed good muscle strength and sensation the patient reports her right lower extremity is at baseline from a previous CVA.), other (Mild dysarthria noted, the patient is intelligible does follow commands properly.) - Psychiatric Psychiatric exam: Present: normal affect, normal mood - Skin Skin exam: Present: warm, dry, intact, normal color. Absent: rash, cyanosis, diaphoresis, erythema, pallor, mottled Course Vital Signs Temperature 97.5 F L 07/25/16 15:58 Pulse Rate 63 07/25/16 15:58 Respiratory Rate 18 07/25/16 15:58 Blood Pressure 138/86 07/25/16 15:58 O2 Sat by Pulse Oximetry 96 07/25/16 15:58 Temperature 97.5 F L 07/25/16 15:58 Pulse Rate 63 07/25/16 17:52 Respiratory Rate 15 07/25/16 17:52 Blood Pressure 138/106 07/25/16 17:52 O2 Sat by Pulse Oximetry 99 07/25/16 17:52 Oxygen Delivery Oxygen Delivery Room Air Medical Decision Making - MDM Narrative Medical decision making narrative: The patient appears to be stable. She has had dysarthria for 4 days, CT scan of the head reveals no acute disease. She has known cerebrovascular disease, is elderly, has a pacemaker, hypertension, and CAD, she has been describing intermittent chest pain. She also has what appears to be a significant UTI. IV fluid aspirin and Rocephin were ordered. Based on the patient's significant vascular disease, complaints of chest pain, pacemaker in-situ, dysarthria, and UTI, I thought it would be appropriate to admit the patient to the hospital. I discussed the case with the hospitalist on-call who has accepted the patient to their care. - Lab Data Lab results reviewed: Yes I reviewed the patient's lab results. Result diagrams: 07/25/16 16:30 07/25/16 16:30 Lab Results 07/25/16 07/25/16 07/25/16 Range/Units 16:02 16:30 16:30 WBC 8.1 (4.3-11.1) K/mcL RBC 5.55 H (3.82-4.97) M/mcL Hgb 17.4 H (11.5-15.4) g/dL Hct 53.1 H (35.3-44.9) % MCV 95.7 (83.0-100.0) fL MCH 31.4 (28.0-33.3) pg MCHC 32.8 (31.6-35.5) g/dL RDW 13.7 (11.5-14.5) % Plt Count 172 (140-400) K/mcL MPV 10.3 (9.4-12.4) fL Immature Gran % 0.2 (0-4) % Seg Neutrophils % 42.2 % Lymphocytes % 34.5 % Monocytes % 8.1 % Eosinophils % 13.5 % Basophils % 1.5 % Neutrophils # 3.4 (1.6-8.9) K/mcL Lymphocytes # 2.8 (0.6-4.6) K/mcL Monocytes # 0.7 (0.0-1.3) K/mcL Eosinophils # 1.1 H (0.0-0.6) K/mcL Basophils # 0.1 (0.0-0.2) K/mcL PT (9.4-12.1) Seconds INR APTT (26.0-36.0) Seconds Sodium (136-145) mEq/L Potassium (3.5-4.5) mEq/L Chloride (98-109) mEq/L Carbon Dioxide (19-29) mEq/L BUN (7-20) mg/dL Creatinine (0.57-1.11) mg/dL Est GFR ( Amer) (> 60) Est GFR (Non-Af Amer) (> 60) BUN/Creatinine Ratio (6-26) Glucose (70-99) mg/dL POC Glucose 100 H (58-89) Calculated Osmolality (280-300) Lactic Acid (0.5-2.2) mmol/L Calcium (8.6-10.8) mg/dL Magnesium (1.6-2.6) mg/dL Total Bilirubin (0.2-1.2) mg/dL Direct Bilirubin (0.0-0.5) mg/dL Indirect Bilirubin (0.0-1.2) mg/dL AST (5-34) Units/L ALT (0-55) Units/L Alkaline Phosphatase (38-126) Units/L Troponin I 0.00 (0-0.03) ng/mL C-Reactive Protein (Less than 5) mg/L B-Natriuretic Peptide (0-100) pg/mL Serum Total Protein (6.0-8.3) g/dL Albumin (3.5-5.0) g/dL Globulin (2.4-3.5) g/dL Albumin/Globulin Ratio (1.1-2.2) Urine Color (Yellow) Urine Clarity (Clear) Urine pH (5.0-8.0) pH Units Ur Specific [place] (1.010-1.025) Urine Protein (Neg-Trace) mg/dL Urine Glucose (UA) (Normal) mg/dL Urine Ketones (Negative) mg/dL Urine Blood (Negative) Urine Nitrite (Negative) Urine Bilirubin (Negative) Urine Urobilinogen (Normal) mg/dL Ur Leukocyte Esterase (Negative) Urine Microscopic RBC (0-3) per hpf Urine Microscopic WBC (0-3) per hpf Ur Squamous Epith Cells (None-Few) per lpf Urine Bacteria (None-Few) per hpf Hyaline Casts (None-Few) per lpf Ur Culture Indicated? (NO) 07/25/16 07/25/16 07/25/16 Range/Units 16:30 16:30 16:30 WBC (4.3-11.1) K/mcL RBC (3.82-4.97) M/mcL Hgb (11.5-15.4) g/dL Hct (35.3-44.9) % MCV (83.0-100.0) fL MCH (28.0-33.3) pg MCHC (31.6-35.5) g/dL RDW (11.5-14.5) % Plt Count (140-400) K/mcL MPV (9.4-12.4) fL Immature Gran % (0-4) % Seg Neutrophils % % Lymphocytes % % Monocytes % % Eosinophils % % Basophils % % Neutrophils # (1.6-8.9) K/mcL Lymphocytes # (0.6-4.6) K/mcL Monocytes # (0.0-1.3) K/mcL Eosinophils # (0.0-0.6) K/mcL Basophils # (0.0-0.2) K/mcL PT 13.2 H (9.4-12.1) Seconds INR 1.2 APTT 33.6 (26.0-36.0) Seconds Sodium 141 (136-145) mEq/L Potassium 3.6 (3.5-4.5) mEq/L Chloride 103 (98-109) mEq/L Carbon Dioxide 29 (19-29) mEq/L BUN 16 (7-20) mg/dL Creatinine 0.87 (0.57-1.11) mg/dL Est GFR ( Amer) > 60 (> 60) Est GFR (Non-Af Amer) > 60 (> 60) BUN/Creatinine Ratio 18 (6-26) Glucose 82 (70-99) mg/dL POC Glucose (58-89) Calculated Osmolality 292 (280-300) Lactic Acid (0.5-2.2) mmol/L Calcium 9.9 (8.6-10.8) mg/dL Magnesium 2.0 (1.6-2.6) mg/dL Total Bilirubin 1.0 (0.2-1.2) mg/dL Direct Bilirubin 0.4 (0.0-0.5) mg/dL Indirect Bilirubin 0.6 (0.0-1.2) mg/dL AST 21 (5-34) Units/L ALT 16 (0-55) Units/L Alkaline Phosphatase 60 (38-126) Units/L Troponin I (0-0.03) ng/mL C-Reactive Protein 1 (Less than 5) mg/L B-Natriuretic Peptide (0-100) pg/mL Serum Total Protein 7.9 (6.0-8.3) g/dL Albumin 3.7 (3.5-5.0) g/dL Globulin 4.2 H (2.4-3.5) g/dL Albumin/Globulin Ratio 0.9 L (1.1-2.2) Urine Color (Yellow) Urine Clarity (Clear) Urine pH (5.0-8.0) pH Units Ur Specific [place] (1.010-1.025) Urine Protein (Neg-Trace) mg/dL Urine Glucose (UA) (Normal) mg/dL Urine Ketones (Negative) mg/dL Urine Blood (Negative) Urine Nitrite (Negative) Urine Bilirubin (Negative) Urine Urobilinogen (Normal) mg/dL Ur Leukocyte Esterase (Negative) Urine Microscopic RBC (0-3) per hpf Urine Microscopic WBC (0-3) per hpf Ur Squamous Epith Cells (None-Few) per lpf Urine Bacteria (None-Few) per hpf Hyaline Casts (None-Few) per lpf Ur Culture Indicated? (NO) 07/25/16 07/25/16 07/25/16 Range/Units 17:00 17:29 17:29 WBC (4.3-11.1) K/mcL RBC (3.82-4.97) M/mcL Hgb (11.5-15.4) g/dL Hct (35.3-44.9) % MCV (83.0-100.0) fL MCH (28.0-33.3) pg MCHC (31.6-35.5) g/dL RDW (11.5-14.5) % Plt Count (140-400) K/mcL MPV (9.4-12.4) fL Immature Gran % (0-4) % Seg Neutrophils % % Lymphocytes % % Monocytes % % Eosinophils % % Basophils % % Neutrophils # (1.6-8.9) K/mcL Lymphocytes # (0.6-4.6) K/mcL Monocytes # (0.0-1.3) K/mcL Eosinophils # (0.0-0.6) K/mcL Basophils # (0.0-0.2) K/mcL PT (9.4-12.1) Seconds INR APTT (26.0-36.0) Seconds Sodium (136-145) mEq/L Potassium (3.5-4.5) mEq/L Chloride (98-109) mEq/L Carbon Dioxide (19-29) mEq/L BUN (7-20) mg/dL Creatinine (0.57-1.11) mg/dL Est GFR ( Amer) (> 60) Est GFR (Non-Af Amer) (> 60) BUN/Creatinine Ratio (6-26) Glucose (70-99) mg/dL POC Glucose (58-89) Calculated Osmolality (280-300) Lactic Acid 0.9 (0.5-2.2) mmol/L Calcium (8.6-10.8) mg/dL Magnesium (1.6-2.6) mg/dL Total Bilirubin (0.2-1.2) mg/dL Direct Bilirubin (0.0-0.5) mg/dL Indirect Bilirubin (0.0-1.2) mg/dL AST (5-34) Units/L ALT (0-55) Units/L Alkaline Phosphatase (38-126) Units/L Troponin I (0-0.03) ng/mL C-Reactive Protein (Less than 5) mg/L B-Natriuretic Peptide 168 H (0-100) pg/mL Serum Total Protein (6.0-8.3) g/dL Albumin (3.5-5.0) g/dL Globulin (2.4-3.5) g/dL Albumin/Globulin Ratio (1.1-2.2) Urine Color Yellow (Yellow) Urine Clarity Clear (Clear) Urine pH 5.0 (5.0-8.0) pH Units Ur Specific [place] 1.009 L (1.010-1.025) Urine Protein Negative (Neg-Trace) mg/dL Urine Glucose (UA) Normal (Normal) mg/dL Urine Ketones Negative (Negative) mg/dL Urine Blood Negative (Negative) Urine Nitrite Negative (Negative) Urine Bilirubin Negative (Negative) Urine Urobilinogen Normal (Normal) mg/dL Ur Leukocyte Esterase Large H (Negative) Urine Microscopic RBC 3-5 H (0-3) per hpf Urine Microscopic WBC 30-50 H (0-3) per hpf Ur Squamous Epith Cells Many H (None-Few) per lpf Urine Bacteria None Seen (None-Few) per hpf Hyaline Casts None Seen (None-Few) per lpf Ur Culture Indicated? YES A (NO) - Radiology Data Radiology results reviewed: Yes I reviewed the patient's radiology results.
[2016-07-25 16:41] LABS: Basophils # 0.1 K/mcL (0.0-0.2); Basophils % 1.5 %; Eosinophils # 1.1 K/mcL (0.0-0.6); Eosinophils % 13.5 %; Hematocrit 53.1 % (35.3-44.9); Hemoglobin 17.4 g/dL (11.5-15.4); Immature Granulocytes % 0.2 % (0-4); Lymphocytes # 2.8 K/mcL (0.6-4.6); Lymphocytes % 34.5 %; Mean Corpuscular HGB Conc 32.8 g/dL (31.6-35.5); Mean Corpuscular Hemoglobin 31.4 pg (28.0-33.3); Mean Corpuscular Volume 95.7 fL (83.0-100.0); Mean Platelet Volume 10.3 fL (9.4-12.4); Monocytes # 0.7 K/mcL (0.0-1.3); Monocytes % 8.1 %; Neutrophils # 3.4 K/mcL (1.6-8.9); Platelet Count 172 K/mcL (140-400); Red Blood Count 5.55 M/mcL (3.82-4.97); Red Cell Distribution Width 13.7 % (11.5-14.5); Segmented Neutrophils % 42.2 %
[2016-07-25 16:48] LABS: INR 1.2; Prothrombin Time 13.2 Seconds (9.4-12.1)
[2016-07-25 16:51] LABS: Activated Partial Thrombo Time 33.6 Seconds (26.0-36.0)
[2016-07-25 16:58] LABS: Alanine Aminotransferase 16 Units/L (0-55); Albumin 3.7 g/dL (3.5-5.0); Albumin/Globulin Ratio 0.9 (1.1-2.2); Alkaline Phosphatase 60 Units/L (38-126); Aspartate Amino Transferase 21 Units/L (5-34); BUN/Creatinine Ratio 18 (6-26); Bilirubin,Direct 0.4 mg/dL (0.0-0.5); Bilirubin,Indirect 0.6 mg/dL (0.0-1.2); Blood Urea Nitrogen 16 mg/dL (7-20); Calcium 9.9 mg/dL (8.6-10.8); Carbon Dioxide 29 mEq/L (19-29); Chloride 103 mEq/L (98-109); Globulin 4.2 g/dL (2.4-3.5); Glucose 82 mg/dL (70-99); Osmolality,Calculated 292 (280-300); Potassium 3.6 mEq/L (3.5-4.5); Sodium 141 mEq/L (136-145); Total Protein 7.9 g/dL (6.0-8.3); eGFR For African Americans > 60 (> 60); eGFR For Non-African Americans > 60 (> 60)
[2016-07-25 17:04] LABS: Bilirubin,Urine Negative (Negative); Blood,Urine Negative (Negative); Clarity,Urine Clear (Clear); Color,Urine Yellow (Yellow); Glucose,Urine (UA) Normal (Normal); Ketones,Urine Negative (Negative); Leukocyte Esterase,Urine Large (Negative); Nitrite,Urine Negative (Negative); Protein,Urine Negative (Neg-Trace); Specific Gravity,Urine 1.009 (1.010-1.025); Urobilinogen,Urine Normal (Normal)
[2016-07-25 17:06] LABS: Bacteria,Urine None Seen per hpf (None-Few); Hyaline Casts,Urine None Seen per lpf (None-Few); Squamous Epithelial Cell,Urine Many per lpf (None-Few); WBC,Urine 30-50 per hpf (0-3)
[2016-07-25] MEDS ORDERED: Aspirin 325 MG TABLET PO ONE (17:14)
[2016-07-25] MEDS ORDERED: Naloxone 0.4 MG/ML INJ IVP PRN (22:08)
--- NOTE | 2016-07-25 23:08 | Internal Med History&Physical ---
<Derek Briseno - Last Filed: 07/25/16 23:01> Date of Encounter: 07/25/16 Time of Encounter: 23:01 Assessment and Plan (1) Transient ischemic attack Current visit: Yes Status: Acute Likely related to underlying A. fib. Patient's acute neurologic deficits have resolved at this time. Patient recently had an extensive workup including carotid Dopplers, head and neck CTA which showed 50% stenosis in the left internal carotid artery but were otherwise unremarkable. There is no indication to repeat this testing. MRI is contraindicated given the patient's pacemaker. We will have the patient evaluated by physical therapy and occupational therapy and speech therapy. We will place an order for a CT of the head in 24 hours after admission to evaluate for any evolving stroke however the patient remains asymptomatic this may not be necessary and we will defer to the day team for further management. Qualifiers: Transient cerebral ischemia type: unspecified Qualified Code(s): G45.9 - Transient cerebral ischemic attack, unspecified (2) Atrial fibrillation Current visit: No Status: Acute EKG currently shows paced rhythm with underlying A. fib with rate under good control. Patient has a history of hemorrhagic stroke with Coumadin so anticoagulation is contraindicated. We will continue aspirin 325 mg daily. This is likely the cause of the patient's TIA. Patient is said to be evaluated by [facility] for a left atrial appendage closure device in the near future. Continue rate controlling medications and cardiac monitoring. Qualifiers: Atrial fibrillation type: chronic Qualified Code(s): I48.2 - Chronic atrial fibrillation (3) UTI (urinary tract infection) Current visit: Yes Status: Acute Patient has urinary urgency and frequency with a positive urinalysis. We will treat with Rocephin 1 g daily for 3 days. Qualifiers: Urinary tract infection type: acute cystitis Hematuria presence: without hematuria Qualified Code(s): N30.00 - Acute cystitis without hematuria (4) HTN (hypertension) Current visit: No Status: Chronic Stable. Continue home medications. Qualifiers: Hypertension type: essential hypertension Qualified Code(s): I10 - Essential (primary) hypertension (5) Gout Current visit: Yes Status: Acute Stable. No evidence of acute gout attack. Continue Uloric Qualifiers: Gout site: unspecified site Gout etiology: unspecified cause Chronicity: chronic Presence of tophus: without tophus Qualified Code(s): M1A.9XX0 - Chronic gout, unspecified, without tophus (tophi) (6) DVT prophylaxis Current visit: Yes Status: Acute EPCDs. Will avoid pharmacologic prophylaxis given the patient's history of hemorrhagic stroke and current concern for TIA. Internal Medicine - H&P: HPI Admitted From: Home Plans for Post Hospital Care: Home History of present illness: Ms. Rao is a 76 year old female with history of hemorrhagic CVA, atrial fibrillation presents with difficulty speaking and memory difficulties. Patient states this started Sunday. She states this is happening to her several times in the past, approximately monthly. She waited through the weekend to get into see Dr. Mccarthy today to get his input on her symptoms and Dr. Mccarthy Center to the emergency department for evaluation. At the time I examined the patient feels like she is back to her baseline. She continues to have some mild speech difficulty and some right lower extremity weakness but this is her baseline from a previous hemorrhagic stroke years ago. Patient also reports significant urinary frequency and urgency. She denies dysuria. Patient denies fever, chills, chest pain, shortness of breath, headache, loss of consciousness, vision difficulties. Past Med Surg Social Fam HX - Past Medical History Medical history: atrial fibrillation, cancer, CHF, coronary artery disease, CVA , hypertension Psychiatric history: no psych history - Past Surgical History Surgical History: hysterectomy, pacemaker/AICD - Social History Smoking Status: Current every day smoker Smokeless Tobacco Status: No Alcohol use: none Drug use: none - Family History Mother Living Status: Hx Family Cardiac Disorders: Yes Internal Medicine - H&P: Meds Aspirin 325 mg PO DAILY 05/04/15 [History] Carvedilol 12.5 mg PO BID 05/04/15 [History] Lisinopril [Zestril] 20 mg PO DAILY 05/04/15 [History] Niacin [Niaspan] 500 mg PO HS 05/04/15 [History] Potassium Chloride [Klor-Con Sprinkle] 10 meq PO BID 05/04/15 [History] Fish Oil/Dha/Epa [Fish Oil 1,200 mg Fish Oil] 1 each PO DAILY 04/18/16 [History] Hydrochlorothiazide 12.5 mg PO DAILY 04/18/16 [History] Febuxostat [Uloric] 40 mg PO DAILY 07/25/16 [History] Allergies adhesive tape Adverse Reaction (Verified 05/04/15 11:37) Blister Latex, Natural Rubber Adverse Reaction (Verified 05/04/15 11:37) Blister All Systems PM: A 10-system review of systems was performed and is negative for pertinent findings except as documented above in the HPI. - Constitutional Constitutional: no chills, no fever(s) - EENT Eyes: no blurry vision, no change in vision - Cardiovascular Cardiovascular ROS IM: no chest pain, no dyspnea, no dyspnea on exertion, no palpitations - Respiratory Respiratory: no cough, no dyspnea, no dyspnea on exertion, no wheezing, no excessive phlegm production, no change in phlegm color - Gastrointestinal Gastrointestinal: no abdominal pain, no diarrhea, no nausea, no vomiting - Genitourinary Genitourinary: urinary frequency, urinary urgency, no dysuria - Musculoskeletal Musculoskeletal ROS IM: no back pain, no neck pain, no numbness, no tingling - Neurological Neurological ROS: abnormal speech, focal weakness, no confusion, no dizziness, no numbness, no paresthesias, no tingling - Constitutional Vitals: Temp Pulse Resp BP Pulse Ox 97.6 F 67 16 137/84 95 07/25/16 19:34 07/25/16 19:34 07/25/16 19:34 07/25/16 19:34 07/25/16 19:34 General appearance: Present: A&O X 3, pleasant, no acute distress, answers questions appropriately - Head Head exam: Present: atraumatic, normal inspection, normocephalic - Eye Eye exam: Present: EOMI, PERRL - ENT ENT exam: Present: mucous membranes moist - Neck Neck exam general surgery: Absent: tenderness - Respiratory Respiratory exam: Present: CTAB. Absent: rales, rhonchi, wheezes - Cardiovascular Cardiovascular exam: Present: irregular rhythm. Absent: gallop, rubs, systolic murmur, tachycardia - GI/Abdominal GI/Abdominal exam: Present: normal bowel sounds, soft. Absent: distended, tenderness - Extremities Exam Extremities exam: Absent: pedal edema, tenderness - Neurological Exam Neurological exam: Present: alert, CN II-XII intact, oriented X3, speech deficit Additional comments: Patient has right lower extremity weakness. Patient has 2 out of 4 reflexes in lower extremity bilaterally. Strength is equal in the upper extremities. Internal Med - H&P Results - Labs CBC & Chem 7: 07/25/16 16:30 07/25/16 16:30 <Thom Flynn - Last Filed: 07/26/16 00:33> Date of Encounter: 07/26/16 - EENT Nose, mouth and throat: no dysphagia - Neurological Neurological ROS: abnormal speech, focal weakness, other (difficulty writing with her dominant hand -- new over the last five days) - Constitutional Vitals: Temp Pulse Resp BP Pulse Ox 97.6 F 63 16 127/85 95 07/25/16 23:46 07/25/16 23:46 07/25/16 23:46 07/25/16 23:46 07/25/16 23:46 General appearance: Present: A&O X 3, pleasant, no acute distress - Head Head exam: Present: normal inspection - Eye Eye exam: Present: EOMI, PERRL. Absent: scleral icterus Pupils: Present: normal accommodation - ENT ENT exam: Present: mucous membranes moist - Neck Neck exam general surgery: Present: full ROM - Expanded Neck Exam Neck exam: Absent: carotid bruit - Respiratory Respiratory exam: Present: CTAB - Cardiovascular Cardiovascular exam: Present: irregular rhythm. Absent: diastolic murmur, systolic murmur - Neurological Exam Neurological exam: Present: alert, CN II-XII intact, oriented X3, speech deficit Internal Med - H&P Results - Labs CBC & Chem 7: 07/25/16 16:30 07/25/16 16:30 - Diagnostic Studies Chest x-ray Status: image reviewed by me (negative) - Attending Attestation I discussed the patient APACHE, PMH, ROS, lab data, and exam findings with Dr. Briseno. I then saw and examined patient independently as well. Pt confirms the history provided to me from Dr. Briseno. She also states that she also has some difficulty with her handwriting since Sunday last week (5 days ago). This is a new finding and has not resolved. She otherwise feels as though she is back to baseline. She had recent full work-up, and I agree with Dr. Briseno 's recommendations. We will consult PT/OT/Speech and order repeat Head CT to be done [address] Other than my comments above and noted exam findings, I agree with Dr. Briseno's assessment and plan.
[2016-07-26 06:31] LABS: Basophils # 0.1 K/mcL (0.0-0.2); Basophils % 1.4 %; Eosinophils # 1.1 K/mcL (0.0-0.6); Eosinophils % 13.4 %; Hematocrit 46.7 % (35.3-44.9); Immature Granulocytes % 0.5 % (0-4); Lymphocytes # 2.9 K/mcL (0.6-4.6); Lymphocytes % 34.8 %; Mean Corpuscular HGB Conc 33.8 g/dL (31.6-35.5); Mean Corpuscular Hemoglobin 32.2 pg (28.0-33.3); Mean Corpuscular Volume 95.1 fL (83.0-100.0); Mean Platelet Volume 10.3 fL (9.4-12.4); Monocytes # 0.7 K/mcL (0.0-1.3); Monocytes % 8.2 %; Neutrophils # 3.5 K/mcL (1.6-8.9); Platelet Count 153 K/mcL (140-400); Red Blood Count 4.91 M/mcL (3.82-4.97); Red Cell Distribution Width 13.9 % (11.5-14.5); Segmented Neutrophils % 41.7 %
[2016-07-26 06:33] LABS: Hemoglobin 15.8 g/dL (11.5-15.4); INR 1.2; Prothrombin Time 13.5 Seconds (9.4-12.1)
[2016-07-26 06:41] LABS: BUN/Creatinine Ratio 28 (6-26); Blood Urea Nitrogen 22 mg/dL (7-20); Calcium 9.4 mg/dL (8.6-10.8); Carbon Dioxide 23 mEq/L (19-29); Chloride 109 mEq/L (98-109); Glucose 103 mg/dL (70-99); Osmolality,Calculated 298 (280-300); Potassium 3.7 mEq/L (3.5-4.5); Sodium 142 mEq/L (136-145); eGFR For African Americans > 60 (> 60); eGFR For Non-African Americans > 60 (> 60)
[2016-07-26 06:43] VITALS: BP 136/83
[2016-07-26] MEDS ORDERED: Aspirin 325 MG TABLET PO SCH (09:00)
[2016-07-26] MEDS ORDERED: Lisinopril 20 MG TABLET PO SCH (09:00)
[2016-07-26] MEDS ORDERED: hydroCHLOROthiazide 25 MG TABLET PO SCH (09:00)
[2016-07-26] MEDS ORDERED: ULORIC 40MG PO SCH (09:00)
--- NOTE | 2016-07-26 11:55 | Discharge Summary ---
Date of Encounter: 07/26/16 Time of Encounter: 11:53 - Discharge Diagnosis (1) Atrial fibrillation Priority: Secondary Status: Acute Qualifiers: Atrial fibrillation type: chronic Qualified Code(s): I48.2 - Chronic atrial fibrillation (2) HTN (hypertension) Priority: Secondary Status: Chronic Qualifiers: Hypertension type: essential hypertension Qualified Code(s): I10 - Essential (primary) hypertension (3) Pacemaker Priority: Secondary Status: Chronic (4) CVA (cerebral vascular accident) Priority: Secondary Status: Chronic Qualifiers: CVA mechanism: unspecified Qualified Code(s): I63.9 - Cerebral infarction, unspecified (5) UTI (urinary tract infection) Priority: Primary Status: Acute Qualifiers: Urinary tract infection type: acute cystitis Hematuria presence: without hematuria Qualified Code(s): N30.00 - Acute cystitis without hematuria (6) Transient ischemic attack Priority: Primary Status: Acute Qualifiers: Transient cerebral ischemia type: unspecified Qualified Code(s): G45.9 - Transient cerebral ischemic attack, unspecified - Discharge Medications Prescriptions: Cefdinir [Omnicef] 300 mg PO BID #6 capsule Home Medications: Aspirin 325 mg PO DAILY 05/04/15 [History] Carvedilol 12.5 mg PO BID 05/04/15 [History] Lisinopril [Zestril] 20 mg PO DAILY 05/04/15 [History] Niacin [Niaspan] 500 mg PO HS 05/04/15 [History] Potassium Chloride [Klor-Con Sprinkle] 10 meq PO BID 05/04/15 [History] Fish Oil/Dha/Epa [Fish Oil 1,200 mg Fish Oil] 1 each PO DAILY 04/18/16 [History] hydroCHLOROthiazide [Hydrochlorothiazide] 12.5 mg PO DAILY 04/18/16 [History] Febuxostat [Uloric] 40 mg PO DAILY 07/25/16 [History] Cefdinir [Omnicef] 300 mg PO BID #6 capsule 07/26/16 [Rx] Allergies/Adverse Reactions: Allergies adhesive tape Adverse Reaction (Verified 05/04/15 11:37) Blister Latex, Natural Rubber Adverse Reaction (Verified 05/04/15 11:37) Blister Procedures/tests Complete & Pending: Procedures Performed prior 72 hours Category Date Time Status Head CT without Contrast [CT head/brain wo con] [CT] Cat Scan 07/26/16 17:00 Ordered Routine Date of admission: 07/25/16 18:32 Primary care physician: Salvador Alfredo MD Consults: 07/25/16 23:13 Consult to Occupational Therapy [CONS] Routine Comment: Evaluate, develop and implement POC Reason for Consult: TIA Consult to Physical Therapy [CONS] Routine Comment: Evaluate, develop and implement POC Reason for Consult: TIA Consult to Speech Therapy [CONS] Routine Comment: Evaluate, develop and implement POC Reason for Consult: TIA. hx of CVA, dysarthria Call Completed: No Discharging clinician: Mark Marquez Anticipated date of discharge: 07/26/16 - Patient Status Disposition: Home Health Service Condition: Fair Functional capacity at discharge: independent ambulation Overall status at discharge: patient is back to baseline - Discharge Instructions Follow Up With: Salvador Alfredo MD [Primary Care Provider] - 07/27/16 8:00 am - Diet and Activity Activity: as per physical therapy, resume usual activities as tolerated Diet: advance to your usual diet Interval History: Ms. Rao is a 76 year old female with history of hemorrhagic CVA, atrial fibrillation presents with difficulty speaking and memory difficulties. Patient states this started Sunday. She states this is happening to her several times in the past, approximately monthly. She waited through the weekend to get into see Dr. Mccarthy today to get his input on her symptoms and Dr. Mccarthy sent her to the emergency department for evaluation. At the time of admission, patient feels like she is back to her baseline. She continues to have some mild speech difficulty and some right lower extremity weakness but this is her baseline from a previous hemorrhagic stroke years ago. Patient also reports significant urinary frequency and urgency. She denies dysuria. Patient denies fever, chills, chest pain, shortness of breath, headache, loss of consciousness, vision difficulties. Patient's acute neurologic deficits have resolved at this time wich maybe 2/2 her underlying atrial fib. Patient recently had an extensive workup including carotid Dopplers, head and neck CTA which showed 50% stenosis in the left internal carotid artery but were otherwise unremarkable. There is no indication to repeat this testing. MRI is contraindicated given the patient's pacemaker. bernienet has no new neuro defecits or worsening of any symptoms, EKG currently shows paced rhythm with underlying A. fib with rate under good control. Patient has a history of hemorrhagic stroke with Coumadin so anticoagulation is contraindicated. We will continue aspirin 325 mg daily. This is likely the cause of the patient's TIA. Patient is said to be evaluated by [facility] for a left atrial appendage closure device in the near future. laura was evaluated by PT/OT and recommended HH, seh is being dc in stable condition and will f/u with the surgeon assistant at [facility]. Hospital course: Ms. Rao is a 76 year old female Time spent discussing smoking cessation with patient: more than 10 minutes - Time Spent with Patient Total time spent providing and/or coordinating discharge services: Greater than 30 minutes - Constitutional Vitals: Temp Pulse Resp BP Pulse Ox 97.8 F 64 17 136/83 95 07/26/16 06:37 07/26/16 10:50 07/26/16 10:50 07/26/16 10:50 07/26/16 10:50 General appearance: Present: A&O X 3, pleasant, no acute distress Exam: - Head Head exam: Present: atraumatic, normal inspection, normocephalic - Eye Eye exam: Present: EOMI, PERRL - ENT ENT exam: Present: mucous membranes moist - Neck Neck exam general surgery: Absent: tenderness - Respiratory Respiratory exam: Present: CTAB. Absent: rales, rhonchi, wheezes - Cardiovascular Cardiovascular exam: Present: irregular rhythm. Absent: gallop, rubs, systolic murmur, tachycardia - GI/Abdominal GI/Abdominal exam: Present: normal bowel sounds, soft. Absent: distended, tenderness - Extremities Exam Extremities exam: Absent: pedal edema, tenderness - Neurological Exam Neurological exam: Present: alert, CN II-XII intact, oriented X3, speech deficit Additional comments: Patient has right lower extremity weakness. Patient has 2 out of 4 reflexes in lower extremity bilaterally. Strength is equal in the upper extremities.
--- NOTE | 2016-07-26 11:56 | Physician Discharge Referral ---
Home Health/Hosp Referral Info Transfer to: Home Health Attending Provider: roby baker - Diagnosis (1) Atrial fibrillation Status: Acute (2) HTN (hypertension) Status: Chronic (3) Pacemaker Status: Chronic (4) CVA (cerebral vascular accident) Status: Chronic (5) UTI (urinary tract infection) Status: Acute (6) Transient ischemic attack Status: Acute - Respiratory Orders Smoking Cessation: Smoking cessation has been advised. For more information, call the [employer] Tobacco Quit Line at 7-978-UJGG-NOW. - Diet/Nutrition Diet/Nutrition Orders: Regular - Activity Activity Orders: Up ad dennis - Services Needed Following services are medically necessary services: Nursing, Home Health Aide, Physical Therapy, Occupational Therapy - Transfer Medications Home Medications: Aspirin 325 mg PO DAILY 05/04/15 [History] Carvedilol 12.5 mg PO BID 05/04/15 [History] Lisinopril [Zestril] 20 mg PO DAILY 05/04/15 [History] Niacin [Niaspan] 500 mg PO HS 05/04/15 [History] Potassium Chloride [Klor-Con Sprinkle] 10 meq PO BID 05/04/15 [History] Fish Oil/Dha/Epa [Fish Oil 1,200 mg Fish Oil] 1 each PO DAILY 04/18/16 [History] Hydrochlorothiazide 12.5 mg PO DAILY 04/18/16 [History] Febuxostat [Uloric] 40 mg PO DAILY 07/25/16 [History] Allergies/Adverse Reactions: Allergies adhesive tape Adverse Reaction (Verified 05/04/15 11:37) Blister Latex, Natural Rubber Adverse Reaction (Verified 05/04/15 11:37) Blister Certification: Further, I certify that my clinical findings support that this patient is homebound (i.e. absences from home require considerable and taxing effort and are for medical reasons or anabaptist services or infrequently or short duration when for other reasons) because: Homebound Reason: Patient requires assistance of a person or device to safely leave home Attestation: My signature below is to certify that this patient is under my care and that I, or nurse practitioner, or a physician's assistant director working with me, has a face-to -face encounter with this patient.
--- NOTE | 2016-07-26 15:18 | Electrocardiograph Report ---
[place] [id number] Test Date: 2016-07-25 Pat Name: Monica Rao Department: 102 Room: 3A Gender: F Human Service Specialist: Arnold : 1940 Requested By: Scott Lazcano Order Number: [id number] Reading MD: Joie Torres Measurements Intervals [place] Rate: 60 P: MN: 0 QRS: -74 QRSD: 148 T: 82 QT: 457 QTc: 458 Interpretive Statements ELECTRONIC VENTRICULAR PACEMAKER ABNORMAL RHYTHM ECG Electronically Signed On 07-26-2016 15:17:09 EDT by Joie Torres
[2016-07-26] MEDS ORDERED: Niacin (24 HR) 500 MG TAB.ER.24H PO SCH (21:00)
== END 2016-07-26 13:10 | disposition home health service (06) ==
LOC: EMEROO 15:48 → 3ANU 15:48 → SUATTDRO 18:32 → 3ANU 19:31
PROVIDERS: ADMIT Internal Medicine; ATTEND Pediatrics

== ENCOUNTER 2016-09-26 16:40 | Observation (INO) ==
--- NOTE | 2016-09-26 17:02 | Emergency Department Note ---
Disposition Clinical Impression: Expressive aphasia, History of CVA (cerebrovascular accident), Hypertension Disposition: Admitted As Inpatient Condition: Fair General Adult HPI - General Chief complaint: ED Neuro Symptoms/Deficit Stated complaint: Difficult Speech for 2 days/dizzy Time Seen by Provider: 09/26/16 16:57 Source: patient, other Limitations: no limitations - History of Present Illness Pain Scale: 0 - Related Data Home Medications Medication Instructions Recorded Confirmed Aspirin 325 mg PO DAILY 05/04/15 09/26/16 Carvedilol 12.5 mg PO BID 05/04/15 09/26/16 Lisinopril [Zestril] 20 mg PO DAILY 05/04/15 09/26/16 Niacin [Niaspan] 500 mg PO HS 05/04/15 09/26/16 Potassium Chloride [Klor-Con 10 meq PO BID 05/04/15 09/26/16 Sprinkle] Fish Oil/Dha/Epa [Fish Oil 1,200 1 each PO DAILY 04/18/16 09/26/16 mg Fish Oil] hydroCHLOROthiazide 12.5 mg PO DAILY 04/18/16 09/26/16 [Hydrochlorothiazide] Febuxostat [Uloric] 40 mg PO DAILY 07/25/16 09/26/16 Allergies Allergy/AdvReac Type Severity Reaction Status Date / Time adhesive tape AdvReac Blister Verified 09/26/16 16:46 Latex, Natural Rubber AdvReac Blister Verified 09/26/16 16:46 Aeulbaz-Okt-Smm Reductase AdvReac Joint Pain Verified 09/26/16 20:39 Inhibitor [Statins] Past Medical History - Past Medical History Medical history: Reports: atrial fibrillation, cancer, CHF, coronary artery disease, CVA, hypertension, TIA Surgical history: Reports: hysterectomy, pacemaker/AICD Psychiatric history: Reports: no psych history [employer] history: Reports: no SK[employer] history - Social History Smoking Status: Current every day smoker Smokeless Tobacco Status: No Alcohol use: Reports: none Drug use: Reports: none Physical Exam - General Limitations: no limitations General appearance: alert Course Vital Signs Temperature 97.9 F 09/26/16 16:49 Pulse Rate 62 09/26/16 16:49 Respiratory Rate 20 09/26/16 16:49 Blood Pressure 176/125 09/26/16 16:49 O2 Sat by Pulse Oximetry 96 09/26/16 16:49 Temperature 97.8 F 09/27/16 06:56 Pulse Rate 62 09/27/16 06:56 Respiratory Rate 16 09/27/16 06:56 Blood Pressure 160/99 09/27/16 06:56 O2 Sat by Pulse Oximetry 95 09/27/16 06:56 Oxygen Delivery Oxygen Delivery Room Air Medical Decision Making - Lab Data Result diagrams: 09/27/16 04:27 09/27/16 05:56 Lab Results 09/26/16 09/26/16 09/26/16 Range/Units 17:44 17:44 17:44 WBC 9.1 (4.3-11.1) K/mcL RBC 5.51 H (3.82-4.97) M/mcL Hgb 17.5 H (11.5-15.4) g/dL Hct 52.4 H (35.3-44.9) % MCV 95.1 (83.0-100.0) fL MCH 31.8 (28.0-33.3) pg MCHC 33.4 (31.6-35.5) g/dL RDW 13.4 (11.5-14.5) % Plt Count 157 (140-400) K/mcL MPV 9.9 (9.4-12.4) fL Immature Gran % 0.2 (0-4) % Seg Neutrophils % 44.8 % Lymphocytes % 33.3 % Monocytes % 7.7 % Eosinophils % 12.7 % Basophils % 1.3 % Neutrophils # 4.1 (1.6-8.9) K/mcL Lymphocytes # 3.0 (0.6-4.6) K/mcL Monocytes # 0.7 (0.0-1.3) K/mcL Eosinophils # 1.2 H (0.0-0.6) K/mcL Basophils # 0.1 (0.0-0.2) K/mcL PT 13.9 H (9.4-12.1) Seconds INR 1.3 APTT 35.2 (26.0-36.0) Seconds Sodium 142 (136-145) mEq/L Potassium 3.5 (3.5-4.5) mEq/L Chloride 107 (98-109) mEq/L Carbon Dioxide 28 (19-29) mEq/L BUN 15 (7-20) mg/dL Creatinine 0.82 (0.57-1.11) mg/dL Est GFR ( Amer) > 60 (> 60) Est GFR (Non-Af Amer) > 60 (> 60) BUN/Creatinine Ratio 18 (6-26) Glucose 78 (70-99) mg/dL Calculated Osmolality 294 (280-300) Calcium 9.5 (8.6-10.8) mg/dL Total Bilirubin 0.8 (0.2-1.2) mg/dL AST 21 (5-34) Units/L ALT 18 (0-55) Units/L Alkaline Phosphatase 67 (38-126) Units/L Troponin I (0-0.03) ng/mL Serum Total Protein 7.8 (6.0-8.3) g/dL Albumin 3.7 (3.5-5.0) g/dL Globulin 4.1 H (2.4-3.5) g/dL Albumin/Globulin Ratio 0.9 L (1.1-2.2) 09/26/16 Range/Units 17:44 WBC (4.3-11.1) K/mcL RBC (3.82-4.97) M/mcL Hgb (11.5-15.4) g/dL Hct (35.3-44.9) % MCV (83.0-100.0) fL MCH (28.0-33.3) pg MCHC (31.6-35.5) g/dL RDW (11.5-14.5) % Plt Count (140-400) K/mcL MPV (9.4-12.4) fL Immature Gran % (0-4) % Seg Neutrophils % % Lymphocytes % % Monocytes % % Eosinophils % % Basophils % % Neutrophils # (1.6-8.9) K/mcL Lymphocytes # (0.6-4.6) K/mcL Monocytes # (0.0-1.3) K/mcL Eosinophils # (0.0-0.6) K/mcL Basophils # (0.0-0.2) K/mcL PT (9.4-12.1) Seconds INR APTT (26.0-36.0) Seconds Sodium (136-145) mEq/L Potassium (3.5-4.5) mEq/L Chloride (98-109) mEq/L Carbon Dioxide (19-29) mEq/L BUN (7-20) mg/dL Creatinine (0.57-1.11) mg/dL Est GFR ( Amer) (> 60) Est GFR (Non-Af Amer) (> 60) BUN/Creatinine Ratio (6-26) Glucose (70-99) mg/dL Calculated Osmolality (280-300) Calcium (8.6-10.8) mg/dL Total Bilirubin (0.2-1.2) mg/dL AST (5-34) Units/L ALT (0-55) Units/L Alkaline Phosphatase (38-126) Units/L Troponin I 0.01 (0-0.03) ng/mL Serum Total Protein (6.0-8.3) g/dL Albumin (3.5-5.0) g/dL Globulin (2.4-3.5) g/dL Albumin/Globulin Ratio (1.1-2.2) Attestation Statement - Attestation Attestation: I examined this patient and my medical decision-making was reviewed with the EXTERIOR DESIGNER/PA/Advanced Practice Nurse/Resident Physician. I agree with the documented findings, disposition and treatment plan as described except to the extent set forth below. [id number] time provided Patient presents to the emergency department with intermittent expressive aphasia. Symptoms started 2 days ago. She has a remote history of TIA due to suspected cardiac embolic phenomenon. Appears in no acute distress.
--- NOTE | 2016-09-26 17:16 | Emergency Department Note ---
Disposition Clinical Impression: Expressive aphasia, History of CVA (cerebrovascular accident) Hypertension Qualifiers: Hypertension type: unspecified Qualified Code(s): I10 - Essential (primary) hypertension Disposition: Admitted As Inpatient Condition: Fair Time of Disposition: 18:36 Neuro HPI - General Chief Complaint: ED Neuro Symptoms/Deficit Stated Complaint: Difficult Speech for 2 days/dizzy Time Seen by Provider: 09/26/16 16:57 Source: patient, other Mode of arrival: ambulatory Limitations: no limitations Nursing Notes Reviewed: Yes Vital Signs Reviewed: Yes - History of Present Illness HPI Narrative: 76-year-old female history of hypertension, CVA, CHF A. fib presents for difficulty speaking. Notes that symptoms started approximately 2 days ago which were her last known well. Confirm my family at bedside. Patient does have a history of significant stroke in the past 2 years which required transfer to [facility] with thrombolytics. At that time the patient had some right- sided weakness which has since improved but still notes some residual weakness in the right side. Patient states that she has been having difficulty speaking over the past 2 days. States that she has difficulty getting her words out. Family denies any facial drooping. Patient also reports some chest pain last night. Patient denies any symptoms currently. No shortness of breath. No fevers. No nausea or abdominal pain. Patient states that she takes full dose aspirin. Patient was not clear on that and any other anticoagulation. No headache. No sensory deficits. Also reports a history of a pacemaker. - Related Data Home Medications: Home Medications Medication Instructions Recorded Confirmed Aspirin 325 mg PO DAILY 05/04/15 09/26/16 Carvedilol 12.5 mg PO BID 05/04/15 09/26/16 Lisinopril [Zestril] 20 mg PO DAILY 05/04/15 09/26/16 Niacin [Niaspan] 500 mg PO HS 05/04/15 09/26/16 Potassium Chloride [Klor-Con 10 meq PO BID 05/04/15 09/26/16 Sprinkle] Fish Oil/Dha/Epa [Fish Oil 1,200 1 each PO DAILY 04/18/16 09/26/16 mg Fish Oil] hydroCHLOROthiazide 12.5 mg PO DAILY 04/18/16 09/26/16 [Hydrochlorothiazide] Febuxostat [Uloric] 40 mg PO DAILY 07/25/16 09/26/16 Allergies/Adverse Reactions: Allergies Allergy/AdvReac Type Severity Reaction Status Date / Time adhesive tape AdvReac Blister Verified 09/26/16 16:46 Latex, Natural Rubber AdvReac Blister Verified 09/26/16 16:46 All systems ED: reviewed and negative except as stated. Constitutional: Reports: as per HPI. Denies: fever Eyes: Reports: as per HPI ENT ED: Reports: as per HPI Cardiovascular: Reports: as per HPI, chest pain Respiratory: Reports: as per HPI. Denies: dyspnea Gastrointestinal: Reports: as per HPI. Denies: abdominal pain, nausea, vomiting Genitourinary: Reports: as per HPI Musculoskeletal: Reports: as per HPI Integumentary: Reports: as per HPI Neurological: Reports: as per HPI Psychiatric: Reports: as per HPI Endocrine: Reports: as per HPI Past Medical History - Past Medical History Medical history: Reports: atrial fibrillation, cancer, CHF, coronary artery disease, CVA, hypertension, TIA Surgical history: Reports: hysterectomy, pacemaker/AICD Psychiatric history: Reports: no psych history TOOL ENGINEER history: Reports: no TOOL ENGINEER history - Social History Smoking Status: Current every day smoker Smokeless Tobacco Status: No Alcohol use: Reports: none Drug use: Reports: none Physical Exam - General Limitations: no limitations General appearance: alert, in no apparent distress - Head Head exam: atraumatic, normocephalic, normal inspection - Eye Eye exam: Present: normal appearance, EOMI - ENT ENT exam: normal exam, mucous membranes moist - Neck Neck exam: Present: normal inspection, trachea midline - Chest Chest inspection: Present: normal inspection, symmetric chest wall rise - Respiratory Respiratory exam: Present: normal lung sounds bilaterally. Absent: respiratory distress - Cardiovascular Cardiovascular exam: Present: normal rhythm, irregular rhythm. Absent: systolic murmur - Abdominal Exam Abdominal exam: Present: soft, Non-Tender - Extremities Exam Extremities exam: Present: normal inspection. Absent: pedal edema - Back Exam Back exam: Present: normal inspection - Neurological Exam Neurological exam: Present: alert, oriented X3, CN II-XII intact - Expanded Neurological Exam Patient oriented to: Present: person, place, time Speech: Present: expressive aphasia Cranial nerves: EOM function (II, III, IV, ): Normal, facial sensation (V): Normal, facial palsy (VII): Normal, spinal accessory function (XI): Normal, tongue deviation (XII): Normal Cerebellar function: finger to nose: Normal Motor strength - LUE: 5/5 Motor strength - RUE: 5/5 Motor strength - LLE: 5/5 Motor strength - RLE: 5/5 Upper motor neuron exam: pronator drift: Absent bilaterally - Skin Skin exam: Present: warm, dry, intact, normal color Course Course Narrative: Patient seen and examined. Patient is not a stroke alert is she does not meet the 3 hour time window. Patient's last known well was partially 2 days ago. Patient will get a neurologic evaluation. NIH of 1 due to some intermittent expressive aphasia. No needs at this time. - Reevaluation(s) Reevaluation #1: Patient seen and examined. Patient's in no acute distress. Patient was updated on plan of care. Patient's head CT nose no acute bleed. Patient will be given full dose aspirin. Recommend further neurologic evaluations. Patient would likely need optimize to decrease risk of recurrent CVAs. Time: 18:34 Reevaluation #2: Patient seen and examined. Patient in no acute distress. Patient's repeat exam is unchanged. Family updated on plan of care. Case was discussed with the hospitalist. Patient will be admitted for further evaluation. Time: 19:28 Vital Signs Temperature 97.9 F 09/26/16 16:49 Pulse Rate 62 09/26/16 16:49 Respiratory Rate 20 09/26/16 16:49 Blood Pressure 176/125 09/26/16 16:49 O2 Sat by Pulse Oximetry 96 09/26/16 16:49 Temperature 97.9 F 09/26/16 16:49 Pulse Rate 64 09/26/16 18:50 Respiratory Rate 18 09/26/16 18:50 Blood Pressure 166/95 09/26/16 18:50 O2 Sat by Pulse Oximetry 95 09/26/16 18:50 Oxygen Delivery Oxygen Delivery Room Air Neuro Symptoms/Deficit - MDM Narrative Medical decision making narrative: 76-year-old female presents for evaluation of neurologic symptoms. Patient's last known well was a couple days ago. Patient is not a thrombolytic candidate however does have a history of significant CVA 2 years ago which required transfer. Patient does have risk factors which includes A. fib. Patient on full dose aspirin but no other anticoagulation. Patient was not able to accurately describe why she is not on Coumadin. Patient's NIH was 1 with intermittent expressive aphasia. Patient had a negative head CT for acute hemorrhage. Patient was given full dose aspirin. Patient had cardiac evaluation with troponin as well as EKG and chest x-ray. No acute abnormalities were identified. Patient's EKG does show some changes with PVCs from prior EKG. Patient would likely benefit from optimization of medical management. Patient and family agree with plan of care. - Lab Data Lab results reviewed: Yes I reviewed the patient's lab results. Result diagrams: 09/26/16 17:44 09/26/16 17:44 Lab Results 09/26/16 09/26/16 09/26/16 Range/Units 17:44 17:44 17:44 WBC 9.1 (4.3-11.1) K/mcL RBC 5.51 H (3.82-4.97) M/mcL Hgb 17.5 H (11.5-15.4) g/dL Hct 52.4 H (35.3-44.9) % MCV 95.1 (83.0-100.0) fL MCH 31.8 (28.0-33.3) pg MCHC 33.4 (31.6-35.5) g/dL RDW 13.4 (11.5-14.5) % Plt Count 157 (140-400) K/mcL MPV 9.9 (9.4-12.4) fL Immature Gran % 0.2 (0-4) % Seg Neutrophils % 44.8 % Lymphocytes % 33.3 % Monocytes % 7.7 % Eosinophils % 12.7 % Basophils % 1.3 % Neutrophils # 4.1 (1.6-8.9) K/mcL Lymphocytes # 3.0 (0.6-4.6) K/mcL Monocytes # 0.7 (0.0-1.3) K/mcL Eosinophils # 1.2 H (0.0-0.6) K/mcL Basophils # 0.1 (0.0-0.2) K/mcL PT 13.9 H (9.4-12.1) Seconds INR 1.3 APTT 35.2 (26.0-36.0) Seconds Sodium 142 (136-145) mEq/L Potassium 3.5 (3.5-4.5) mEq/L Chloride 107 (98-109) mEq/L Carbon Dioxide 28 (19-29) mEq/L BUN 15 (7-20) mg/dL Creatinine 0.82 (0.57-1.11) mg/dL Est GFR ( Amer) > 60 (> 60) Est GFR (Non-Af Amer) > 60 (> 60) BUN/Creatinine Ratio 18 (6-26) Glucose 78 (70-99) mg/dL Calculated Osmolality 294 (280-300) Calcium 9.5 (8.6-10.8) mg/dL Total Bilirubin 0.8 (0.2-1.2) mg/dL AST 21 (5-34) Units/L ALT 18 (0-55) Units/L Alkaline Phosphatase 67 (38-126) Units/L Troponin I (0-0.03) ng/mL Serum Total Protein 7.8 (6.0-8.3) g/dL Albumin 3.7 (3.5-5.0) g/dL Globulin 4.1 H (2.4-3.5) g/dL Albumin/Globulin Ratio 0.9 L (1.1-2.2) 09/26/16 Range/Units 17:44 WBC (4.3-11.1) K/mcL RBC (3.82-4.97) M/mcL Hgb (11.5-15.4) g/dL Hct (35.3-44.9) % MCV (83.0-100.0) fL MCH (28.0-33.3) pg MCHC (31.6-35.5) g/dL RDW (11.5-14.5) % Plt Count (140-400) K/mcL MPV (9.4-12.4) fL Immature Gran % (0-4) % Seg Neutrophils % % Lymphocytes % % Monocytes % % Eosinophils % % Basophils % % Neutrophils # (1.6-8.9) K/mcL Lymphocytes # (0.6-4.6) K/mcL Monocytes # (0.0-1.3) K/mcL Eosinophils # (0.0-0.6) K/mcL Basophils # (0.0-0.2) K/mcL PT (9.4-12.1) Seconds INR APTT (26.0-36.0) Seconds Sodium (136-145) mEq/L Potassium (3.5-4.5) mEq/L Chloride (98-109) mEq/L Carbon Dioxide (19-29) mEq/L BUN (7-20) mg/dL Creatinine (0.57-1.11) mg/dL Est GFR ( Amer) (> 60) Est GFR (Non-Af Amer) (> 60) BUN/Creatinine Ratio (6-26) Glucose (70-99) mg/dL Calculated Osmolality (280-300) Calcium (8.6-10.8) mg/dL Total Bilirubin (0.2-1.2) mg/dL AST (5-34) Units/L ALT (0-55) Units/L Alkaline Phosphatase (38-126) Units/L Troponin I 0.01 (0-0.03) ng/mL Serum Total Protein (6.0-8.3) g/dL Albumin (3.5-5.0) g/dL Globulin (2.4-3.5) g/dL Albumin/Globulin Ratio (1.1-2.2) - Radiology Data Radiology results reviewed: Yes I reviewed the patient's radiology results. Chest X-Ray 09/26/16 16:57 IMPRESSION: No acute abnormality detected. D/ / Toni Flannery MD / Toni Flannery MD Interpreting Provider: Toni Flannery MD Head CT 09/26/16 17:12 IMPRESSION: No acute intracranial abnormality. Diffuse atrophic changes with findings suggesting chronic microvascular ischemia D/ / Derek Dinero MD / Derek Dinero MD Interpreting Provider: Derek Dinero MD - EKG Data EKG attestation: Yes I reviewed and interpreted this EKG. Rate: normal Rhythm: A.Fib T wave inversions noted in: aVR, v3, v4, v5, v6 Ectopy: PVC When compared to previous EKG there are: changes noted Interpretation: nonspecific ST-T wave changes NIH Stroke Scale - Level of Consciousness LOC: Alert - LOC Questions LOC Questions: Answers both correctly - LOC Commands LOC Commands: Performs both correctly - Best Gaze Best Gaze: Normal - Visual Visual: No visual loss - Facial Palsy Facial Palsy: Normal - Motor Arms Motor Arm-Left: No drift for 10 seconds Motor Arm-Right: No drift for 10 seconds - Motor Legs Motor Leg-Left: No drift for 5 seconds Motor Leg-Right: No drift for 5 seconds - Limb Ataxia Limb Ataxia: Absent of affected limb too weak to perform exam - Sensory Sensory: Normal - Best Language Best Language: Mild to moderate aphasia. Examiner can identify picture from response - Dysarthria Dysarthria: Normal - Extinction and Inattention Extinction and Inattention: Normal - NIHSS Total Score NIHSS Total Score: 1 TPA Checklist - LKW: 3-4.5 hrs Add. Warnings/Precautions Patient/family understanding: The patient/family members have been counseled and understood the risk, benefit , and alternatives of treatment. Talisha - Talisha Situation: Demographics, MOA Background: Presenting Complaint Assessment: Vital Signs, Patient/Family Expectation Recommendation: Barrier(s) to disposition, Recommendation based on pending studies, treatments, or consults S.B.Higinio Report Given to: Dr. Gee Woodall Repor Time: 19:10
[2016-09-26 17:51] LABS: Basophils # 0.1 K/mcL (0.0-0.2); Basophils % 1.3 %; Eosinophils # 1.2 K/mcL (0.0-0.6); Eosinophils % 12.7 %; Hematocrit 52.4 % (35.3-44.9); Hemoglobin 17.5 g/dL (11.5-15.4); Immature Granulocytes % 0.2 % (0-4); Lymphocytes % 33.3 %; Mean Corpuscular HGB Conc 33.4 g/dL (31.6-35.5); Mean Corpuscular Hemoglobin 31.8 pg (28.0-33.3); Mean Corpuscular Volume 95.1 fL (83.0-100.0); Mean Platelet Volume 9.9 fL (9.4-12.4); Monocytes # 0.7 K/mcL (0.0-1.3); Monocytes % 7.7 %; Neutrophils # 4.1 K/mcL (1.6-8.9); Platelet Count 157 K/mcL (140-400); Red Blood Count 5.51 M/mcL (3.82-4.97); Red Cell Distribution Width 13.4 % (11.5-14.5); Segmented Neutrophils % 44.8 %
[2016-09-26 17:56] LABS: INR 1.3; Prothrombin Time 13.9 Seconds (9.4-12.1)
[2016-09-26 17:59] LABS: Activated Partial Thrombo Time 35.2 Seconds (26.0-36.0)
[2016-09-26 18:04] LABS: Alanine Aminotransferase 18 Units/L (0-55); Albumin 3.7 g/dL (3.5-5.0); Albumin/Globulin Ratio 0.9 (1.1-2.2); Alkaline Phosphatase 67 Units/L (38-126); Aspartate Amino Transferase 21 Units/L (5-34); BUN/Creatinine Ratio 18 (6-26); Bilirubin,Total 0.8 mg/dL (0.2-1.2); Blood Urea Nitrogen 15 mg/dL (7-20); Calcium 9.5 mg/dL (8.6-10.8); Carbon Dioxide 28 mEq/L (19-29); Chloride 107 mEq/L (98-109); Globulin 4.1 g/dL (2.4-3.5); Glucose 78 mg/dL (70-99); Osmolality,Calculated 294 (280-300); Potassium 3.5 mEq/L (3.5-4.5); Sodium 142 mEq/L (136-145); Total Protein 7.8 g/dL (6.0-8.3); eGFR For African Americans > 60 (> 60); eGFR For Non-African Americans > 60 (> 60)
[2016-09-26] MEDS ORDERED: Aspirin 81 MG TAB.CHEW PO ONE (18:33)
[2016-09-26 19:37] LABS: Bilirubin,Urine Negative (Negative); Blood,Urine Negative (Negative); Clarity,Urine Clear (Clear); Color,Urine Yellow (Yellow); Glucose,Urine (UA) Normal (Normal); Ketones,Urine Negative (Negative); Leukocyte Esterase,Urine Negative (Negative); Nitrite,Urine Negative (Negative); PH,Urine 5.5 pH Units (5.0-8.0); Protein,Urine Negative (Neg-Trace); Specific Gravity,Urine 1.015 (1.010-1.025); Urobilinogen,Urine Normal (Normal)
--- NOTE | 2016-09-26 21:44 | Internal Med History&Physical ---
Date of Encounter: 09/26/16 Time of Encounter: 21:41 Assessment and Plan (1) Expressive aphasia Current visit: Yes Status: Acute This is an acute worsening of chronic speech difficulties possibly caused by worsening of previous CVA or TIA She cannot be on anticoagulation due to previous hemorrhagic stroke, but will continue on full dose ASA Head CT was negative for acute abnormalities, but she cannot get MRI for further evaluation due to presence of pacemaker Also she did not tolerate statins and is currently on Niacin and Uloric Obtain echocardiogram to evaluate for any presence of clots; her last echo in March was unremarkable Consult neurology, appreciate recommendations PT/OT/SS for possible home health/rehab upon discharge (2) Atrial fibrillation Current visit: No Status: Chronic Cannot be on anti-coagulation due to her previous hemorrhagic stroke Will continue full dose ASA and rate control with home Coreg dose Qualifiers: Atrial fibrillation type: chronic Qualified Code(s): I48.2 - Chronic atrial fibrillation (3) History of CVA (cerebrovascular accident) Current visit: Yes Status: Chronic Her right sided deficits are at baseline Continue her home ASA, Niacin, Uloric (4) Hypertension Current visit: Yes Status: Chronic Blood pressures improved after being slightly high upon admission Will continue home anti-hypertensives and monitor vitals closely Qualifiers: Hypertension type: essential hypertension Qualified Code(s): I10 - Essential (primary) hypertension (5) DVT prophylaxis Current visit: No Status: Acute SCDs in setting of previous hemorrhagic stroke Internal Medicine - H&P: HPI Chief complaint: expressive aphasia Admitted From: Home Plans for Post Hospital Care: Home History of present illness: Ms. Rao is a 76 year old female who presents with difficulty speaking. She is accompanied by Charles who is at bedside. Patient states that in the past 2 days she has been having trouble finding the words. She also complained of having intermittent chest pain that started yesterday. She does have a history of hemorrhagic stroke in 2014 require transfer to [facility], and has right- sided deficits and dysarthria. Patient has been states that her speech is slightly worse than baseline. Patient denies any weakness worse than baseline, loss of consciousness, headache, blurry vision, fevers, SOB, nausea, vomiting, or incontinence. She also has history of A. fib and has a pacemaker in place. She is currently on full dose aspirin daily and is not on any anticoagulation due to the hemorrhagic stroke. Also has been in contact with [facility] surgeon for left atrial appendage surgery, but is still in process of getting this approved. Patient lives with who helps her get around. She does have a walker and does not use it as it "makes her feel old". Past Med Surg Social Fam HX - Past Medical History Medical history: atrial fibrillation, cancer, CHF, coronary artery disease, CVA , hypertension, TIA Psychiatric history: no psych history - Past Surgical History Surgical History: hysterectomy, pacemaker/AICD - Social History Smoking Status: Current every day smoker Packs per day: 1/2 Smokeless Tobacco Status: No Alcohol use: none Drug use: none - Family History Mother Living Status: Age at : 86 Hx Family Cardiac Disorders: Yes Internal Medicine - H&P: Meds Aspirin 325 mg PO DAILY 05/04/15 [History] Carvedilol 12.5 mg PO BID 05/04/15 [History] Lisinopril [Zestril] 20 mg PO DAILY 05/04/15 [History] Niacin [Niaspan] 500 mg PO HS 05/04/15 [History] Potassium Chloride [Klor-Con Sprinkle] 10 meq PO BID 05/04/15 [History] Fish Oil/Dha/Epa [Fish Oil 1,200 mg Fish Oil] 1 each PO DAILY 04/18/16 [History] hydroCHLOROthiazide [Hydrochlorothiazide] 12.5 mg PO DAILY 04/18/16 [History] Febuxostat [Uloric] 40 mg PO DAILY 07/25/16 [History] Allergies adhesive tape Adverse Reaction (Verified 09/26/16 16:46) Blister Latex, Natural Rubber Adverse Reaction (Verified 09/26/16 16:46) Blister Boqezib-Dup-Com Reductase Inhibitor [Statins] Adverse Reaction (Verified 20:39) Joint Pain All Systems PM: A 10-system review of systems was performed and is negative for pertinent findings except as documented above in the HPI. - Constitutional Constitutional: no chills, no fever(s), no night sweats - EENT Eyes: no blurry vision, no change in vision, no discharge, no pain, no photophobia Ears: no ear discharge, no ear pain, no tinnitus Nose, mouth and throat: no dysphagia, no nasal discharge, no neck pain, no sore throat - Cardiovascular Cardiovascular ROS IM: chest pain, irregular heart rhythm, no diaphoresis, no dyspnea, no lightheadedness, no palpitations, no syncope - Respiratory Respiratory: no cough, no dyspnea, no wheezing, no excessive phlegm production - Gastrointestinal Gastrointestinal: no abdominal pain, no diarrhea, no hematemesis, no hematochezia, no melena, no nausea, no vomiting - Genitourinary Genitourinary: no change in urinary stream, no dysuria, no flank pain, no hematuria - Musculoskeletal Musculoskeletal ROS IM: no arthralgias, no numbness, no tingling - Integumentary Integumentary IM: no rash, no unusual bruising - Neurological Neurological ROS: abnormal speech, focal weakness (chronic right sided), no confusion, no convulsions, no headache(s), no memory loss, no numbness, no tingling, no tremor(s) - Hematologic/Lymphatic Hematologic/Lymphatic: no easy bruising - Constitutional Vitals: Temp Pulse Resp BP Pulse Ox 97.5 F L 62 18 116/76 96 09/26/16 21:25 09/26/16 21:25 09/26/16 21:25 09/26/16 21:25 09/26/16 21:25 General appearance: Present: cooperative, pleasant, no acute distress, obese, answers questions appropriately - Head Head exam: Present: atraumatic, normocephalic - Eye Eye exam: Present: EOMI, PERRL, conjuntiva pink, sclera anicteric - Neck Neck exam general surgery: Present: supple, trachea midline. Absent: lymphadenopathy - Respiratory Respiratory exam: Present: CTAB. Absent: accessory muscle use, rales, rhonchi, wheezes - Cardiovascular Cardiovascular exam: Present: irregular rhythm, +S1, +S2. Absent: diastolic murmur, gallop, rubs, systolic murmur, tachycardia - GI/Abdominal GI/Abdominal exam: Present: normal bowel sounds, soft, no peritoneal signs. Absent: distended, tenderness - Extremities Exam Extremities exam: Present: warm, radial pulses palpable and symetrical. Absent : calf tenderness, cyanotic, pedal edema - Neurological Exam Neurological exam: Present: alert, CN II-XII intact, speech deficit (has intermittent difficulty finding words). Absent: strengths equal and symetr throughout (4/5 strength in RLE and RUE), facial droop - Skin Skin exam: Present: dry, intact Internal Med - H&P Results - Labs CBC & Chem 7: 09/26/16 17:44 09/26/16 17:44 Labs: Urine 09/26/16 Range/Units 19:28 Urine Color Yellow (Yellow) Urine Clarity Clear (Clear) Urine pH 5.5 (5.0-8.0) pH Units Ur Specific [place] 1.015 (1.010-1.025) Urine Protein Negative (Neg-Trace) mg/dL Urine Glucose (UA) Normal (Normal) mg/dL
[2016-09-26] MEDS ORDERED: Ondansetron ODT 4 MG TAB.RAPDIS SL PRN (21:59)
[2016-09-26] MEDS ORDERED: Naloxone 0.4 MG/ML INJ IVP PRN (21:59)
[2016-09-26] MEDS ORDERED: Acetaminophen 325 MG TABLET PO PRN (21:59)
[2016-09-27 05:04] LABS: Basophils # 0.1 K/mcL (0.0-0.2); Basophils % 1.2 %; Eosinophils # 1.2 K/mcL (0.0-0.6); Eosinophils % 14.6 %; Hematocrit 48.8 % (35.3-44.9); Immature Granulocytes % 0.6 % (0-4); Lymphocytes # 3.1 K/mcL (0.6-4.6); Lymphocytes % 36.4 %; Mean Corpuscular HGB Conc 32.8 g/dL (31.6-35.5); Mean Corpuscular Hemoglobin 31.3 pg (28.0-33.3); Mean Corpuscular Volume 95.5 fL (83.0-100.0); Mean Platelet Volume 10.6 fL (9.4-12.4); Monocytes # 0.7 K/mcL (0.0-1.3); Monocytes % 8.1 %; Neutrophils # 3.3 K/mcL (1.6-8.9); Platelet Count 151 K/mcL (140-400); Red Blood Count 5.11 M/mcL (3.82-4.97); Red Cell Distribution Width 13.4 % (11.5-14.5); Segmented Neutrophils % 39.1 %
[2016-09-27 06:55] LABS: BUN/Creatinine Ratio 19 (6-26); Blood Urea Nitrogen 15 mg/dL (7-20); Calcium 9.3 mg/dL (8.6-10.8); Carbon Dioxide 24 mEq/L (19-29); Chloride 107 mEq/L (98-109); Glucose 95 mg/dL (70-99); Osmolality,Calculated 289 (280-300); Potassium 3.5 mEq/L (3.5-4.5); Sodium 139 mEq/L (136-145); eGFR For African Americans > 60 (> 60); eGFR For Non-African Americans > 60 (> 60)
[2016-09-27] MEDS: Aspirin 325 MG TABLET PO SCH (09:27)
[2016-09-27] MEDS: hydroCHLOROthiazide 25 MG TABLET PO SCH (09:27)
[2016-09-27] MEDS: Lisinopril 20 MG TABLET PO SCH (09:28)
[2016-09-27] MEDS: Nicotine 14 MG PATCH.TD24 TD SCH (09:28)
[2016-09-27] MEDS: Febuxostat [Uloric] 40 MG PO SCH (09:28)
--- NOTE | 2016-09-27 10:33 | Internal Med Progress Note ---
Date of Encounter: 09/27/16 Time of Encounter: 10:00 - Assessment and plan (1) Expressive aphasia Current Visit: Yes Status: Acute Assessment and plan: Possible acute stroke. Case discussed with neurology. Spoke with mold maintenance technician. Patient's device appears to be MRI compatible. We will obtain MRI of the brain without contrast. Likely will be performed tomorrow as a [employer] sales representative girls' apparel needs to be present during MRI and it cannot be in tomorrow. Continue aspirin and he is in. Patient allergic to statin. Speech therapy. The patient does have an acute CVA, will discontinue aspirin and changed to Plavix. (2) History of CVA (cerebrovascular accident) Current Visit: No Status: Chronic (3) Hypertension Current Visit: Yes Status: Chronic Assessment and plan: Controlled blood pressure. Continue home medications. Qualifiers: Hypertension type: essential hypertension Qualified Code(s): I10 - Essential (primary) hypertension - Subjective Interval history: Patient continues to report having difficulty getting words out. She has had pacemaker for a while but it was changed last [place] [address] Torres. She denies any nausea or vomiting. She reports chronic right-sided weakness from a prior stroke. Denies any headache or changes in her vision. - Constitutional Vitals: Temp Pulse Resp BP Pulse Ox 97.8 F 62 16 160/99 95 09/27/16 06:56 09/27/16 06:56 09/27/16 06:56 09/27/16 06:56 09/27/16 06:56 General appearance: Present: cooperative, pleasant, no acute distress, obese, answers questions appropriately Exam: Gen.: Lying in bed. No acute distress. Chest: Clear to auscultation bilaterally. No adventitious sounds present. CVS: First and second heart sounds present. No murmurs, rubs or gallops. Abdomen: Soft, nontender, nondistended. Bowel sounds present. No hepatosplenomegaly. Skin: No decubitus ulcers appreciated. VIDEO GAME PROGRAMMER: Power 5/5 all over. Cranials 2 through 12 grossly intact. Psychiatric: Alert, awake and oriented to time, place and person. Internal Medicine: Result - Labs CBC & Chem 7: 09/27/16 04:27 09/27/16 05:56 Labs: Short CBC 09/27/16 Range/Units 04:27 WBC 8.5 (4.3-11.1) K/mcL Hgb 16.0 H D (11.5-15.4) g/dL Hct 48.8 H (35.3-44.9) % Plt Count 151 (140-400) K/mcL Neutrophils # 3.3 (1.6-8.9) K/mcL BMP 09/27/16 05:56 Sodium 139 Potassium 3.5 Chloride 107 Carbon Dioxide 24 BUN 15 Creatinine 0.78 Glucose 95 Calcium 9.3 Urine 09/26/16 Range/Units 19:28 Urine Color Yellow (Yellow) Urine Clarity Clear (Clear) Urine pH 5.5 (5.0-8.0) pH Units Ur Specific [place] 1.015 (1.010-1.025) Urine Protein Negative (Neg-Trace) mg/dL Urine Glucose (UA) Normal (Normal) mg/dL - ABG Interpretation ABG results: PT/INR, D-dimer PT 13.9 Seconds (9.4-12.1) H 09/26/16 17:44 - Impressions Case discussed with neurology Consult Discharge Plan - Plan Referrals: Salvador Alfredo MD [Primary Care Provider] - 10/06/16 10:00 am
--- NOTE | 2016-09-27 12:22 | Neurology - Consult Note ---
Date of Encounter: 09/27/16 Time of Encounter: 10:00 Assessment and Plan (1) Cerebrovascular disease Current Visit: No Status: Acute Patient is a 76 year old woman with chronic Afib, on aspirin, history of ICH involving left BG, with resulting right hemiparesis who developed worsening speech difficulty with rapid improvement. Currently, speech is slightly slurred not sure it is back to her baseline. No new focal weakness seen at present time. CT of head showed no acute intracranial abnormality. Patient has history of prior ICH involving left BG thought to be related coumadin induced coagulopathy (, [facility]). Although Due to the location of the ICH it could also be hypertensive in nature, which is difficult to confirm at present time. AT the time, it was decided that the patient not to be a candidate for anticoagulation therapy due to history of ICH. In this regard, if anything needs to be changed, it would be because the risk of stroke is significantly increased compared to three years ago. Therefore, the diagnosis of new stroke would be important. Agree with MRI of brain if it could be done. If a new stroke can not be confirmed then will keep her on Aspirin 325mg daily. History of Present Illness Chief complaint: slurred speech HPI: Ms. 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 Patient interviewed in the presence of his . Patient had hemorrhage stroke involving the left BG , was treated at [facility] neurology. Decided not to be a candidate for anticoagulation therapy due to the cerebral hemorrhage at the time. The stroke apparently resulted in right sided hemiparesis and baseline dysarthria. Somewhat the speech difficulty worsened yesterday and it still feel not normal. No worsening in terms of right sided weakness though. Past Med Surg Social Fam HX - Past Medical History Medical history: atrial fibrillation, cancer, CHF, coronary artery disease, CVA , hypertension, TIA Psychiatric history: no psych history - Past Surgical History Surgical History: hysterectomy, pacemaker/AICD - Social History Smoking Status: Current every day smoker Packs per day: 1/2 Smokeless Tobacco Status: No Alcohol use: none Drug use: none - Family History Mother Living Status: Age at : 86 Hx Family Cardiac Disorders: Yes Medications and Allergies Aspirin 325 mg PO DAILY 05/04/15 [History] Carvedilol 12.5 mg PO BID 05/04/15 [History] Lisinopril [Zestril] 20 mg PO DAILY 05/04/15 [History] Niacin [Niaspan] 500 mg PO HS 05/04/15 [History] Potassium Chloride [Klor-Con Sprinkle] 10 meq PO BID 05/04/15 [History] Fish Oil/Dha/Epa [Fish Oil 1,200 mg Fish Oil] 1 each PO DAILY 04/18/16 [History] hydroCHLOROthiazide [Hydrochlorothiazide] 12.5 mg PO DAILY 04/18/16 [History] Febuxostat [Uloric] 40 mg PO DAILY 07/25/16 [History] Allergies adhesive tape Adverse Reaction (Verified 09/26/16 16:46) Blister Latex, Natural Rubber Adverse Reaction (Verified 09/26/16 16:46) Blister Gtdsljv-Qhs-Pjq Reductase Inhibitor [Statins] Adverse Reaction (Verified 20:39) Joint Pain All Systems: A 10-system review of systems was performed and is negative for pertinent findings except as documented above in the HPI. Physical Examination - Vital Signs Vital Signs: Initial Vital Signs Temp Pulse Resp BP Pulse Ox 97.9 F 62 20 176/125 96 09/26/16 16:49 09/26/16 16:49 09/26/16 16:49 09/26/16 16:49 09/26/16 16:49 - Constitutional General appearance: comfortable - Neurologic Sensorimotor examination: other (Grossly intact) Detailed motor examination: full strength in all major muscle groups, other (No pronator drift noted. hand buggyman appears strong) Detailed sensory examination: other (Grossly intact) Reflex and gait examination: intact Reflexes: Biceps: 2+, Triceps: 2+, Brachioradialis: 2+, Patella: 2+, Achilles: 2 + Mental Status Examination: awake, alert, oriented to person, oriented to place, oriented to time, follows commands appropriately, answers questions appropriately, no agnosia, no aphasia, no aproxia, lucid Cranial nerve examination: PERRL, EOMI, visual francois intact, corneal reflexes brisk symmetrically, sensory to face intact, mastication intact, no facial asymmetry is present, no dysarthria (does have mild dysarthria. able to repeat well), hearing is intact symmetrically, soft palate elevates bilaterally upon phonation, gag reflex intact, flexes SCM and trapezius muscles symmetrically with full power, tongue protrudes midline Cerebellar examination: no dysmetria, performs finger to nose and heel to medley symmetrically without ataxia, no gait ataxia, no truncal ataxia, no difficulty with rapid alternating movements Results - Laboratory Findings CBC and BMP: 09/27/16 04:27 09/27/16 05:56 Abnormal lab findings: Abnormal lab results RBC 5.11 M/mcL (3.82-4.97) H 09/27/16 04:27 Hgb 16.0 g/dL (11.5-15.4) H D 09/27/16 04:27 Hct 48.8 % (35.3-44.9) H 09/27/16 04:27 Eosinophils # 1.2 K/mcL (0.0-0.6) H 09/27/16 04:27 PT 13.9 Seconds (9.4-12.1) H 09/26/16 17:44 Globulin 4.1 g/dL (2.4-3.5) H 09/26/16 17:44 Albumin/Globulin Ratio 0.9 (1.1-2.2) L 09/26/16 17:44 Consult Discharge Plan - Plan Referrals: Salvador howell MD [Primary Care Provider] - 10/06/16 10:00 am
--- NOTE | 2016-09-27 14:52 | Electrocardiograph Report ---
[place] [id number] Test Date: 2016-09-26 Pat Name: Monica Rao Department: 103 Room: [facility] Gender: F Strain Technician: : 1940 Requested By: Rohit Lutz Order Number: [id number] Reading MD: Joie Torres Measurements Intervals [place] Rate: 67 P: AL: 0 QRS: 19 QRSD: 86 T: -76 QT: 394 QTc: 409 Interpretive Statements ATRIAL FIBRILLATION WITH DEMAND VENTRICULAR PACING Electronically Signed On 09-27-2016 14:50:48 EDT by Joie Torres
[2016-09-27] MEDS ORDERED: Niacin (24 HR) 500 MG TAB.ER.24H PO SCH (21:00)
[2016-09-28] MEDS: hydroCHLOROthiazide 25 MG TABLET PO SCH ×2 (11:20→16:19)
[2016-09-28] MEDS: Nicotine 14 MG PATCH.TD24 TD SCH ×2 (11:21→11:25)
[2016-09-28] MEDS: Lisinopril 20 MG TABLET PO SCH (11:21)
[2016-09-28] MEDS: Aspirin 325 MG TABLET PO SCH (11:21)
[2016-09-28] MEDS: Febuxostat [Uloric] 40 MG PO SCH (11:22)
--- NOTE | 2016-09-28 15:38 | Discharge Summary ---
Date of Encounter: 09/28/16 Time of Encounter: 15:36 - Discharge Diagnosis (1) Expressive aphasia Priority: Primary Status: Resolved (2) History of CVA (cerebrovascular accident) Priority: Secondary Status: Chronic (3) Hypertension Priority: Secondary Status: Chronic Qualifiers: Hypertension type: essential hypertension Qualified Code(s): I10 - Essential (primary) hypertension - Discharge Medications Home Medications: Aspirin 325 mg PO DAILY 05/04/15 [History] Carvedilol 12.5 mg PO BID 05/04/15 [History] Lisinopril [Zestril] 20 mg PO DAILY 05/04/15 [History] Niacin [Niaspan] 500 mg PO HS 05/04/15 [History] Potassium Chloride [Klor-Con Sprinkle] 10 meq PO BID 05/04/15 [History] Fish Oil/Dha/Epa [Fish Oil 1,200 mg Fish Oil] 1 each PO DAILY 04/18/16 [History] hydroCHLOROthiazide [Hydrochlorothiazide] 12.5 mg PO DAILY 04/18/16 [History] Febuxostat [Uloric] 40 mg PO DAILY 07/25/16 [History] Allergies/Adverse Reactions: Allergies adhesive tape Adverse Reaction (Verified 09/26/16 16:46) Blister Latex, Natural Rubber Adverse Reaction (Verified 09/26/16 16:46) Blister Norqqov-Fvs-Xcu Reductase Inhibitor [Statins] Adverse Reaction (Verified 20:39) Joint Pain Procedures/tests Complete & Pending: Procedures Performed prior 72 hours Category Date Time Status MR head/brain wo con [MR] Routine MRI 09/28/16 07:25 Draft EV echocardiogram Routine Y 09/27/16 21:59 Completed - Notes to Outpatient Provider 1. Consider newer statins to reduce the risk of stroke recurrence Date of admission: 09/26/16 19:26 Primary care physician: Salvador Alfredo MD Consults: 09/26/16 21:59 Consult to Neurology [CONS] Routine Consulting Provider: [facility] Reason for Consult: worsening dysarthria, h/o hemorrhagic stroke in 2013; patient saw Dr. Barrios last month Call Completed: No 09/26/16 22:02 Consult to Linen Supervisor [CONS] Routine Reason for SW Consult: h/o hemorrhagic stroke with right sided deficits, may need rehab/HH upon D/C 09/27/16 07:32 Consult to Speech Therapy [CONS] Routine Comment: Evaluate, develop and implement POC Reason for Consult: Expressive aphasia Call Completed: No Discharging clinician: Ric Riggins Anticipated date of discharge: 09/28/16 - Patient Status Disposition: Home, Self-Care Condition: Fair Functional capacity at discharge: uses cane/walker Overall status at discharge: patient is back to baseline - Discharge Instructions Follow Up With: Salvador Alfredo MD [Primary Care Provider] - 10/06/16 10:00 am - Diet and Activity Activity: as per physical therapy, increase activity as tolerated Diet: low fat, low cholesterol, low salt diet Hospital course: Ms. Rao is a 76 year old female with history of intracranial hemorrhage who presents to the emergency room due to worsening speech problems. CT scan of the head did not reveal any acute abnormality. The patient was evaluated by neurology during her stay. An MRI was recommended. MRI was subsequently obtained after her pacemaker lean facilitator was contacted to turn it off. MRI did not reveal any acute infarcts. It revealed findings consistent with a remote infarct involving the left basal ganglia and left frontal lobe. Mild chronic small visit ischemic changes are present. Echocardiogram was performed which revealed preserved ejection fraction with concentric left and lower hypertrophy. The patient's symptoms resolved during the stay in the hospital. As the patient is back to her baseline and MRI does not reveal any acute stroke , she has been deemed stable to be discharged home. Neurology recommended that the patient can be continued on aspirin 325 mg by mouth daily if her MRI does not reveal any acute stroke. The patient has a reported allergy to statins. She states that she feels warm. She takes statins. Patient was encouraged to discuss the same with her primary care physician and to try one of the newer statins which are less or adverse effects. - Time Spent with Patient Total time spent providing and/or coordinating discharge services: - Constitutional Vitals: Temp Pulse Resp BP Pulse Ox 97.9 F 61 16 153/102 95 09/28/16 11:31 09/28/16 11:31 09/28/16 11:31 09/28/16 11:31 09/28/16 11:31 General appearance: Present: cooperative, pleasant, no acute distress, obese, answers questions appropriately Exam: Gen.: Lying in bed. No acute distress. Chest: Clear to auscultation bilaterally. No adventitious sounds present. CVS: First and second heart sounds present. No murmurs, rubs or gallops.
[2016-09-28 15:41] VITALS: BP 164/115
== END 2016-09-28 18:13 | disposition home or self-care (01) ==
LOC: EMEROO 16:40 → 2NENU 16:40
PROVIDERS: ADMIT Pediatrics; ATTEND Internal Medicine Sleep Medicine

== ENCOUNTER 2017-02-08 11:25 | Observation (INO) ==
--- NOTE | 2017-02-08 11:35 | Emergency Department Note ---
Disposition Clinical Impression: Fracture of hip, right, closed Qualifiers: Encounter type: initial encounter Qualified Code(s): S72.001A - Fracture of unspecified part of neck of right femur, initial encounter for closed fracture UTI (urinary tract infection) Qualifiers: Urinary tract infection type: acute cystitis Hematuria presence: with hematuria Qualified Code(s): N30.01 - Acute cystitis with hematuria Disposition: Admitted As Inpatient Condition: Fair Time of Disposition: 15:56 General Adult HPI - General Chief complaint: ED Fall Stated complaint: Fall Time Seen by Provider: 02/08/17 11:26 Nursing Notes Reviewed: Yes Vital Signs Reviewed: Yes - History of Present Illness HPI Narrative: 76-year-old female past medical history of TIAs, pacemaker, presents to the emergency department with right hip pain and trouble walking after a fall last night. She also states that she had problems with speech earlier today that has went away that started at 9:30. Patient also reports some inability to move her left lower extremity earlier today. Patient states that she is not having these issues now, just with her right leg pain as well as pain in the back of her head after fall. Patient denies any nausea or vomiting. - Related Data Home Medications Medication Instructions Recorded Confirmed Carvedilol 12.5 mg PO BID 05/04/15 02/08/17 Lisinopril [Zestril] 20 mg PO DAILY 05/04/15 02/08/17 Niacin [Niaspan] 500 mg PO HS 05/04/15 02/08/17 Potassium Chloride [Klor-Con 10 meq PO BID 05/04/15 02/08/17 Sprinkle] Fish Oil/Dha/Epa [Fish Oil 1,200 1 each PO DAILY 04/18/16 02/08/17 mg Fish Oil] hydroCHLOROthiazide 12.5 mg PO DAILY 04/18/16 02/08/17 [Hydrochlorothiazide] Febuxostat [Uloric] 40 mg PO DAILY 07/25/16 02/08/17 Aspirin 81 mg PO DAILY 02/08/17 02/08/17 Oxybutynin Chloride [Ditropan Xl] 5 mg PO DAILY 02/08/17 02/08/17 Allergies Allergy/AdvReac Type Severity Reaction Status Date / Time adhesive tape AdvReac Blister Verified 02/08/17 13:08 Latex, Natural Rubber AdvReac Blister Verified 02/08/17 13:08 Wwaxtas-Hal-Edh Reductase AdvReac Joint Pain Verified 02/08/17 13:08 Inhibitor [Statins] All systems ED: reviewed and negative except as stated. Review of Systems: As Per HPI Constitutional: Reports: fever Cardiovascular: Denies: chest pain, edema Respiratory: Reports: cough, dyspnea, wheezes Gastrointestinal: Denies: abdominal pain, nausea, vomiting Past Medical History - Past Medical History Medical history: Reports: atrial fibrillation, cancer, CHF, coronary artery disease, CVA, hypertension, TIA Surgical history: Reports: hysterectomy, pacemaker/AICD Psychiatric history: Reports: no psych history MEDICARE INSURANCE SPECIALIST history: Reports: no MEDICARE INSURANCE SPECIALIST history - Social History Smoking Status: Current every day smoker Smokeless Tobacco Status: No Alcohol use: Reports: none Drug use: Reports: none Physical Exam General: Well Appearing 76-year-old female, in no acute distress Head: autraumatic, EOMI, no conjuncitval pallor, no scleral icterus, Mouth: oral mucous membranes moist Neck: neck soft, trachea midline Chest:: Equal chest wall rise Lungs: Normal lungs sounds bilaterally, no wheezes, no respiratory distress Heart: normal heart sounds, normal rate, irregular rhythm Abdomen: soft, non-tender, no rigidity, no guarding, no rebdound tenderness Pelvis: Pain elicited upon compression of the right pelvic brim, no tenderness to compression of the left pelvic rim. Lower Extremities: no pedal edema, calves non-tender Integumentary: Skin warm, dry, and intact Neuro: Alert and oriented to person, place, time, GCS 15, cranial nerves II through XII grossly intact, decreased right leg strength that is 4 out of 5, but lifting elicits tenderness in the right hip. Sensation intact throughout. Psych: normal affect, normal mood Course Vital Signs Temperature 98.6 F 02/08/17 11:29 Pulse Rate 82 02/08/17 11:29 Respiratory Rate 20 02/08/17 11:29 Blood Pressure 132/105 02/08/17 11:29 O2 Sat by Pulse Oximetry 95 02/08/17 11:29 Temperature 98.6 F 02/08/17 11:29 Pulse Rate 85 02/08/17 15:00 Respiratory Rate 16 02/08/17 15:00 Blood Pressure 136/88 02/08/17 15:00 O2 Sat by Pulse Oximetry 96 02/08/17 15:00 Oxygen Delivery Oxygen Delivery Room Air Medical Decision Making - MDM Narrative Medical decision making narrative: 76-year-old female past medical history of pacemaker placement, atrial fibrillation, TIAs, presents to the emergency department with concern for hemorrhagic stroke versus ischemic stroke as well as hip fracture from fall. We are obtaining a CT of the head without contrast as well as a CTA of the head and neck. Also obtaining a chest x-ray, troponin, EKG, AP plain films of the pelvis. Plain films of the pelvis revealed an acute nondisplaced fracture of the right femoral neck. I spoke with the nurse who is with Dr. Jimenez and he said to admit the patient to medicine and he would follow her on the floor for further evaluation and scheduling of operation. Patient's CTA of the head and neck only reveals tortures appearing, carotid arteries bilaterally and less than 50% narrowing involving the carotid bifurcations. There was chronic microvascular ischemic change involving the brain parenchyma. Dr. Dong was informed of the case and he agreed to accept the patient for admission. I also is spoke with the patient regarding her diagnosis. Patient's urinalysis reveals a urinary tract infection. Previous marker obtained does not reveal any positive cultures. We will give this patient a gram of Rocephin here in the emergency department for treatment. Hip X-Ray 02/08/17 11:30 IMPRESSION: 1. Acute, nondisplaced fracture of the right femoral neck. D/ / 02/08/2017 12:44:04 Lindsey Henriquez MD / Reina Kearney Interpreting Provider: Lindsey Henriquez MD Chest X-Ray 02/08/17 11:31 IMPRESSION: No evidence of acute cardiopulmonary disease. D/ / Frank Lazo MD / Frank Lazo MD Interpreting Provider: Frank Lazo MD Angiography CT 02/08/17 11:35 IMPRESSION: 1. Tortuous appearing common carotid arteries bilaterally and less than 50% narrowing involving the carotid bifurcations. More distal internal carotid artery show no flow limiting narrowing. 2. Intracranial anterior and posterior circulation patent without evidence of aneurysm, dissection or stenosis. 3. Chronic microvascular ischemic change involving the brain parenchyma. D/ / 02/08/2017 14:29:52 Leon Kearney Interpreting Provider: Leon Caicedo Neck CTA 02/08/17 11:35 IMPRESSION: 1. Tortuous appearing common carotid arteries bilaterally and less than 50% narrowing involving the carotid bifurcations. More distal internal carotid artery show no flow limiting narrowing. 2. Intracranial anterior and posterior circulation patent without evidence of aneurysm, dissection or stenosis. 3. Chronic microvascular ischemic change involving the brain parenchyma. D/ / 02/08/2017 14:29:52 Leon Kearney Interpreting Provider: Leon Caicedo Hip X-Ray 02/08/17 11:30 IMPRESSION: 1. Acute, nondisplaced fracture of the right femoral neck. D/ / Lindsey Henriquez MD / Lindsey Henriquez MD Interpreting Provider: Lindsey Henriquez MD Chest X-Ray 02/08/17 11:31 IMPRESSION: No evidence of acute cardiopulmonary disease. D/ / Frank Lazo MD / Frank Lazo MD Interpreting Provider: Frank Lazo MD - Lab Data Result diagrams: 02/08/17 11:43 02/08/17 11:43 Lab Results 02/08/17 02/08/17 02/08/17 Range/Units 11:43 11:43 11:43 WBC 11.4 H (4.3-11.1) K/mcL RBC 5.44 H (3.82-4.97) M/mcL Hgb 17.3 H (11.5-15.4) g/dL Hct 51.4 H (35.3-44.9) % MCV 94.5 (83.0-100.0) fL MCH 31.8 (28.0-33.3) pg MCHC 33.7 (31.6-35.5) g/dL RDW 13.5 (11.5-14.5) % Plt Count 165 (140-400) K/mcL MPV 10.3 (9.4-12.4) fL Immature Gran % 0.3 (0-4) % Seg Neutrophils % 72.8 % Lymphocytes % 15.1 % Monocytes % 6.1 % Eosinophils % 4.9 % Basophils % 0.8 % Neutrophils # 8.3 (1.6-8.9) K/mcL Lymphocytes # 1.7 (0.6-4.6) K/mcL Monocytes # 0.7 (0.0-1.3) K/mcL Eosinophils # 0.6 (0.0-0.6) K/mcL Basophils # 0.1 (0.0-0.2) K/mcL Sodium 141 (136-145) mEq/L Potassium 4.0 (3.5-4.5) mEq/L Chloride 110 H (98-109) mEq/L Carbon Dioxide 20 (19-29) mEq/L BUN 16 (7-20) mg/dL Creatinine 0.78 (0.57-1.11) mg/dL Est GFR ( Amer) > 60 (> 60) Est GFR (Non-Af Amer) > 60 (> 60) BUN/Creatinine Ratio 21 (6-26) Glucose 117 H (70-99) mg/dL Calculated Osmolality 294 (280-300) Calcium 9.6 (8.6-10.8) mg/dL Troponin I 0.03 (0-0.03) ng/mL Urine Color (Yellow) Urine Clarity (Clear) Urine pH (5.0-8.0) pH Units Ur Specific [place] (1.010-1.025) Urine Protein (Neg-Trace) mg/dL Urine Glucose (UA) (Normal) mg/dL Urine Ketones (Negative) mg/dL Urine Blood (Negative) Urine Nitrite (Negative) Urine Bilirubin (Negative) Urine Urobilinogen (Normal) mg/dL Ur Leukocyte Esterase (Negative) Urine Microscopic RBC (0-3) per hpf Urine Microscopic WBC (0-3) per hpf Ur Squamous Epith Cells (None-Few) per lpf Urine Bacteria (None-Few) per hpf Ur Culture Indicated? (NO) 02/08/17 Range/Units 13:02 WBC (4.3-11.1) K/mcL RBC (3.82-4.97) M/mcL Hgb (11.5-15.4) g/dL Hct (35.3-44.9) % MCV (83.0-100.0) fL MCH (28.0-33.3) pg MCHC (31.6-35.5) g/dL RDW (11.5-14.5) % Plt Count (140-400) K/mcL MPV (9.4-12.4) fL Immature Gran % (0-4) % Seg Neutrophils % % Lymphocytes % % Monocytes % % Eosinophils % % Basophils % % Neutrophils # (1.6-8.9) K/mcL Lymphocytes # (0.6-4.6) K/mcL Monocytes # (0.0-1.3) K/mcL Eosinophils # (0.0-0.6) K/mcL Basophils # (0.0-0.2) K/mcL Sodium (136-145) mEq/L Potassium (3.5-4.5) mEq/L Chloride (98-109) mEq/L Carbon Dioxide (19-29) mEq/L BUN (7-20) mg/dL Creatinine (0.57-1.11) mg/dL Est GFR ( Amer) (> 60) Est GFR (Non-Af Amer) (> 60) BUN/Creatinine Ratio (6-26) Glucose (70-99) mg/dL Calculated Osmolality (280-300) Calcium (8.6-10.8) mg/dL Troponin I (0-0.03) ng/mL Urine Color Yellow (Yellow) Urine Clarity Cloudy A (Clear) Urine pH 5.5 (5.0-8.0) pH Units Ur Specific [place] 1.027 H (1.010-1.025) Urine Protein Negative (Neg-Trace) mg/dL Urine Glucose (UA) Normal (Normal) mg/dL Urine Ketones Negative (Negative) mg/dL Urine Blood Small H (Negative) Urine Nitrite Negative (Negative) Urine Bilirubin Negative (Negative) Urine Urobilinogen Normal (Normal) mg/dL Ur Leukocyte Esterase Large H (Negative) Urine Microscopic RBC 0-3 (0-3) per hpf Urine Microscopic WBC TNTC H (0-3) per hpf Ur Squamous Epith Cells Many H (None-Few) per lpf Urine Bacteria Moderate H (None-Few) per hpf Ur Culture Indicated? YES A (NO) - EKG Data EKG #1 EKG attestation: Yes I reviewed and interpreted this EKG. EKG results narrative: Ventricular rate 67 bpm. Care is duration 86 ms, QT 380 ms, QTC 395 ms, normal axis. Atrial fibrillation with Ventricular paced rhythm. This electrocardiogram is same as her previous one obtained on September 26, 2016.
[2017-02-08 11:50] LABS: Basophils # 0.1 K/mcL (0.0-0.2); Basophils % 0.8 %; Eosinophils # 0.6 K/mcL (0.0-0.6); Eosinophils % 4.9 %; Hematocrit 51.4 % (35.3-44.9); Hemoglobin 17.3 g/dL (11.5-15.4); Immature Granulocytes % 0.3 % (0-4); Lymphocytes # 1.7 K/mcL (0.6-4.6); Lymphocytes % 15.1 %; Mean Corpuscular HGB Conc 33.7 g/dL (31.6-35.5); Mean Corpuscular Hemoglobin 31.8 pg (28.0-33.3); Mean Corpuscular Volume 94.5 fL (83.0-100.0); Mean Platelet Volume 10.3 fL (9.4-12.4); Monocytes # 0.7 K/mcL (0.0-1.3); Monocytes % 6.1 %; Neutrophils # 8.3 K/mcL (1.6-8.9); Platelet Count 165 K/mcL (140-400); Red Blood Count 5.44 M/mcL (3.82-4.97); Red Cell Distribution Width 13.5 % (11.5-14.5); Segmented Neutrophils % 72.8 %
[2017-02-08 12:04] LABS: BUN/Creatinine Ratio 21 (6-26); Blood Urea Nitrogen 16 mg/dL (7-20); Calcium 9.6 mg/dL (8.6-10.8); Carbon Dioxide 20 mEq/L (19-29); Chloride 110 mEq/L (98-109); Glucose 117 mg/dL (70-99); Osmolality,Calculated 294 (280-300); Sodium 141 mEq/L (136-145); eGFR For African Americans > 60 (> 60); eGFR For Non-African Americans > 60 (> 60)
--- NOTE | 2017-02-08 12:20 | Emergency Department Note ---
START Narrative - START START: I examined this patient and my medical decision-making was reviewed with the Resident Physician. I agree with the documented findings, disposition and treatment plan as described except to the extent set forth below. 76 year old female presnts to the ED via EMS for issues with ambulation s/p fall last night. Patient is having pain on the right hip that radiates into her leg and staes that she does not have an issues moving the legs while sitting down but states that when she stands she has pain and bilateally R>L. Also at 0930 this morning she states she had some difficulty with speech although it has resolved and back to baselin and she states that she had a stroke about 3 years ago which has left her with some speech impediments. WE will do labs, CTA head/neck and XR pelvis.
[2017-02-08] MEDS ORDERED: *HR* Morphine 2 MG/ML SYRINGE IVP ONE (12:53)
[2017-02-08 13:09] LABS: Bilirubin,Urine Negative (Negative); Blood,Urine Small (Negative); Clarity,Urine Cloudy (Clear); Color,Urine Yellow (Yellow); Glucose,Urine (UA) Normal (Normal); Ketones,Urine Negative (Negative); Leukocyte Esterase,Urine Large (Negative); Nitrite,Urine Negative (Negative); PH,Urine 5.5 pH Units (5.0-8.0); Protein,Urine Negative (Neg-Trace); Specific Gravity,Urine 1.027 (1.010-1.025); Urobilinogen,Urine Normal (Normal)
[2017-02-08 13:10] LABS: Squamous Epithelial Cell,Urine Many per lpf (None-Few); WBC,Urine TNTC per hpf (0-3)
[2017-02-08 13:25] LABS: Bacteria,Urine Moderate per hpf (None-Few); RBC,Urine 0-3 per hpf (0-3)
[2017-02-08] MEDS ORDERED: cefTRIAXone 1,000 MG in Water for inj. (sterile) 10 ML IVP ONE (15:55)
[2017-02-08] MEDS ORDERED: *HR* Morphine 2 MG/ML SYRINGE IVP PRN (16:53)
--- NOTE | 2017-02-08 18:50 | Internal Med History&Physical ---
Date of Encounter: 02/08/17 Time of Encounter: 18:50 Assessment and Plan (1) Fracture of hip, right, closed Current visit: Yes Status: Acute Ortho consulted, will await recommendations. Plan to resume aspirin 81 mg home dose when able. Qualifiers: Encounter type: initial encounter Qualified Code(s): S72.001A - Fracture of unspecified part of neck of right femur, initial encounter for closed fracture (2) Fall Current visit: Yes Status: Acute Mechanical fall vs TIA Patient described this Was in hospital in 09/2016 for TIA/CVA. Workup was negative. 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 She was discharged home with aspirin. She has intolerance to statins. Cartotids and CTa head neck showed carotids <50% stenosis bilaterally and head/ neck with no acute process. Will consider MRI and Neuro consult. Until then optimize medical management for CVA/TIA prevention. May need to introduce a newer statin to patient and see if she tolerates. Echocardiogram 09/2016: Impressions: LVEF 60-65%. Normal LV chamber size and function. Mild concentric left ventricular hypertrophy. Indeterminate diastolic function. Atypical septal motion consistent with paced rhythm. Normal right ventricular structure and function. Mild tricuspid regurgitation. Mild pulmonary hypertension. Qualifiers: Encounter type: initial encounter Qualified Code(s): W19.XXXA - Unspecified fall, initial encounter (3) Atrial fibrillation Current visit: No Status: Chronic High risk for stroke but she is also high risk for bleeding with HAS-BLED score of 4. Will continue 81 mg aspirin when able and continue Coreg for rate control with goal HR <110 bpm Qualifiers: Atrial fibrillation type: chronic Qualified Code(s): I48.2 - Chronic atrial fibrillation (4) CAD (coronary artery disease) Current visit: No Status: Acute Qualifiers: Coronary Disease-Associated Artery/Lesion type: unspecified vessel or lesion type [place] vs. transplanted heart: unspecified whether [place] or transplanted heart Associated angina: angina presence unspecified Qualified Code(s): I25.10 - Atherosclerotic heart disease of [place] coronary artery without angina pectoris (5) CHF (congestive heart failure) Current visit: No Status: Acute Qualifiers: Congestive heart failure type: diastolic Congestive heart failure chronicity: chronic Qualified Code(s): I50.32 - Chronic diastolic (congestive ) heart failure (6) History of CVA (cerebrovascular accident) Current visit: No Status: Chronic (7) HTN (hypertension) Current visit: No Status: Chronic Qualifiers: Hypertension type: essential hypertension Qualified Code(s): I10 - Essential (primary) hypertension Internal Medicine - H&P: HPI Chief complaint: Hip pain Admitted From: Home Plans for Post Hospital Care: Transfer Shelter Facility History of present illness: 76-year-old female past medical history of TIAs, pacemaker, presents to the emergency department with right hip pain and trouble walking after a fall last night. She also states that she had problems with speech earlier today that has went away that started at 9:30. Patient also reports some inability to move her left lower extremity earlier today. Patient states that she is not having these issues now, just with her right leg pain as well as pain in the back of her head after fall. She denies any LOC, denies headache, fevers, change in vision, lightheadedness. She states this was simply a mechanical fall after carrying bags inside. Past Med Surg Social Fam HX - Past Medical History Medical history: atrial fibrillation, cancer, CHF, coronary artery disease, CVA , hypertension, TIA Psychiatric history: no psych history - Past Surgical History Surgical History: hysterectomy, pacemaker/AICD - Social History Smoking Status: Current every day smoker Smokeless Tobacco Status: No Alcohol use: none Drug use: none - Family History Mother Living Status: Hx Family Cardiac Disorders: Yes Internal Medicine - H&P: Meds Carvedilol 12.5 mg PO BID 05/04/15 [History] Lisinopril [Zestril] 20 mg PO DAILY 05/04/15 [History] Niacin [Niaspan] 500 mg PO HS 05/04/15 [History] Potassium Chloride [Klor-Con Sprinkle] 10 meq PO BID 05/04/15 [History] Fish Oil/Dha/Epa [Fish Oil 1,200 mg Fish Oil] 1 each PO DAILY 04/18/16 [History] hydroCHLOROthiazide [Hydrochlorothiazide] 12.5 mg PO DAILY 04/18/16 [History] Febuxostat [Uloric] 40 mg PO DAILY 07/25/16 [History] Aspirin 81 mg PO DAILY 02/08/17 [History] Oxybutynin Chloride [Ditropan Xl] 5 mg PO DAILY 02/08/17 [History] 3 Allergy/AdvReac Type Severity Reaction Status Date / Time adhesive tape AdvReac Blister Verified 02/08/17 13:08 Latex, Natural Rubber AdvReac Blister Verified 02/08/17 13:08 Pmegwct-Kbv-Gxz Reductase AdvReac Joint Pain Verified 02/08/17 13:08 Inhibitor [Statins] All Systems PM: A 10-system review of systems was performed and is negative for pertinent findings except as documented above in the HPI. - Constitutional Constitutional: no chills, no fever(s), no night sweats - EENT Eyes: no blurry vision, no change in vision Ears: no ear discharge, no ear pain, no tinnitus Nose, mouth and throat: no dysphagia, no nasal discharge, no neck pain, no sore throat - Cardiovascular Cardiovascular ROS IM: no chest pain, no diaphoresis, no dyspnea, no lightheadedness, no palpitations, no syncope - Respiratory Respiratory: no cough, no dyspnea, no wheezing, no excessive phlegm production - Gastrointestinal Gastrointestinal: no abdominal pain, no diarrhea, no hematemesis, no hematochezia, no melena, no nausea, no vomiting - Musculoskeletal Musculoskeletal ROS IM: no numbness, no tingling - Integumentary Integumentary IM: no rash, no unusual bruising - Neurological Neurological ROS: focal weakness, no dizziness, no lack of coordination, no loss of vision, no numbness, no paresthesias, no radicular pain, no tingling, no tremor(s), no other visual disturbances - Constitutional Vitals: Temp Pulse Resp BP Pulse Ox 98.1 F 69 18 137/82 92 02/08/17 16:49 02/08/17 16:49 02/08/17 16:49 02/08/17 16:49 02/08/17 16:49 Exam: General: no acute distress Head: autraumatic, EOMI, MMM Neck: neck soft, trachea midline Lungs: Normal lungs sounds bilaterally, no wheezes, no respiratory distress Heart: normal heart sounds, normal rate, irregular rhythm Abdomen: soft, non-tender, no rigidity, no guarding, no rebdound tenderness Pelvis: Pain elicited upon compression of the right pelvic brim, no tenderness to compression of the left pelvic rim. Lower Extremities: no pedal edema, calves non-tender Integumentary: Skin warm, dry, and intact Neuro: Alert and oriented to person, place, time, GCS 15, cranial nerves II through XII grossly intact, decreased right leg strength that is 4 out of 5, but lifting elicits tenderness in the right hip. Sensation intact throughout. Psych: normal affect, normal mood Internal Med - H&P Results - Labs CBC & Chem 7: 02/08/17 11:43 02/08/17 11:43
[2017-02-08] MEDS ORDERED: Naloxone 0.4 MG/ML INJ IVP PRN (18:53)
[2017-02-08] MEDS ORDERED: Ondansetron 4 MG/2 ML VIAL IVP PRN (18:53)
--- NOTE | 2017-02-08 20:54 | Orthopedic Consult Note ---
Date of Encounter: 02/08/17 Time of Encounter: 16:00 Assessment and Plan (1) Fracture of hip, right, closed Current Visit: Yes Status: Acute I did discuss the diagnosis and treatment plan with Monica. We discussed operative and non-operative treatment options. She is a community ambulator who typically walks with a cane or walker. For pain control and ambulation post operatively we recommended surgical fixation with CRPP of the right hip. We discussed the risks and benefits of surgery including but not limited to infection, blood loss, failure of surgery, non-healing of fracture, DVT, PE, [place] , and . She understands the risks and has elected to proceed. NPO at [place] Plan for CRPP tomorrow pending medical clearance Bedrest until surgery Qualifiers: Encounter type: initial encounter Qualified Code(s): S72.001A - Fracture of unspecified part of neck of right femur, initial encounter for closed fracture History of Present Illness Chief complaint: R hip pain HPI: Ms. Rao is a 76 year old female who sustained a mechanical fall yesterday. Presented to ED this AM with inability to ambulate and right hip pain. Denies any CP or blacking out prior to fall. No CP/SOB or any other extremity pain currently. Past Med Surg Social Fam HX - Past Medical History Medical history: atrial fibrillation, cancer, CHF, coronary artery disease, CVA , hypertension, TIA Psychiatric history: no psych history - Past Surgical History Surgical History: hysterectomy, pacemaker/AICD - Social History Smoking Status: Current every day smoker Smokeless Tobacco Status: No Alcohol use: none Drug use: none - Family History Mother Living Status: Hx Family Cardiac Disorders: Yes Medications and Allergies Carvedilol 12.5 mg PO BID 05/04/15 [History] Lisinopril [Zestril] 20 mg PO DAILY 05/04/15 [History] Niacin [Niaspan] 500 mg PO HS 05/04/15 [History] Potassium Chloride [Klor-Con Sprinkle] 10 meq PO BID 05/04/15 [History] Fish Oil/Dha/Epa [Fish Oil 1,200 mg Fish Oil] 1 each PO DAILY 04/18/16 [History] hydroCHLOROthiazide [Hydrochlorothiazide] 12.5 mg PO DAILY 04/18/16 [History] Febuxostat [Uloric] 40 mg PO DAILY 07/25/16 [History] Aspirin 81 mg PO DAILY 02/08/17 [History] Oxybutynin Chloride [Ditropan Xl] 5 mg PO DAILY 02/08/17 [History] 3 Allergy/AdvReac Type Severity Reaction Status Date / Time adhesive tape AdvReac Blister Verified 02/08/17 13:08 Latex, Natural Rubber AdvReac Blister Verified 02/08/17 13:08 Vdmjtuo-Cod-Phq Reductase AdvReac Joint Pain Verified 02/08/17 13:08 Inhibitor [Statins] All Systems Reviewed: A 10-system review of systems was performed and is negative for pertinent findings except as documented above in the HPI. Physical Exam - Constitutional Vitals: Temp Pulse Resp BP Pulse Ox 98.0 F 65 18 119/80 95 02/08/17 20:21 02/08/17 20:21 02/08/17 20:21 02/08/17 20:21 02/08/17 20:21 General appearance IM: A&O X 3, pleasant Exam: Consult Exam: Constitutional -Vitals reviewed -The patient is well developed and well nourished. -Mood is pleasant. -The patient is well groomed. Psychiatric -The patient is fully alert and oriented x 3. Respiratory: -Respiratory effort normal Abdomen: -Soft abdomen -Non tender -Non distended: Left upper extremity: -No deformities. The overlying skin is intact. No obvious signs of acute trauma. -No tenderness to palpation throughout. -No significant pain with passive motion of the shoulder, elbow, wrist, and fingers within the limits of the bed. -Able to make an "OK" sign, cross the index and long fingers, and extend the thumb. -Sensation grossly intact to light touch throughout the median, radial, and ulnar distributions. -Radial pulse is present; Fingers have good capillary refill. Right upper extremity: -No deformities. The overlying skin is intact. No obvious signs of acute trauma. -No tenderness to palpation throughout. -No significant pain with passive motion of the shoulder, elbow, wrist, and fingers within the limits of the bed. -Able to make an "OK" sign, cross the index and long fingers, and extend the thumb. -Sensation grossly intact to light touch throughout the median, radial, and ulnar distributions. -Radial pulse is present; Fingers have good capillary refill. Left lower extremity: -No deformities. The overlying skin is intact. No obvious signs of acute trauma. -No tenderness to palpation throughout. -No pain with passive motion of the hip, knee, ankle, and toes within the limits of the bed. -No pain with axial loading of the thigh. -Able to dorsiflex and plantarflex the ankle and toes. -Sensation is grossly intact to light touch throughout the sural, saphenous, superficial peroneal, and deep peroneal distributions. -Toes have good capillary refill. Right lower extremity: -Pain with log roll, axial loading at hip -No pain with passive motion of the knee, ankle, and toes within the limits of the bed. -Able to dorsiflex and plantarflex the ankle and toes. -Sensation is grossly intact to light touch throughout the sural, saphenous, superficial peroneal, and deep peroneal distributions. -Toes have good capillary refill. Results - Labs Result Diagrams: 02/08/17 11:43 02/08/17 11:43 Labs: Abnormal lab results WBC 11.4 K/mcL (4.3-11.1) H 02/08/17 11:43 RBC 5.44 M/mcL (3.82-4.97) H 02/08/17 11:43 Hgb 17.3 g/dL (11.5-15.4) H 02/08/17 11:43 Hct 51.4 % (35.3-44.9) H 02/08/17 11:43 Chloride 110 mEq/L (98-109) H 02/08/17 11:43 Glucose 117 mg/dL (70-99) H 02/08/17 11:43 Urine Clarity Cloudy (Clear) A 02/08/17 13:02 Ur Specific [place] 1.027 (1.010-1.025) H 02/08/17 13:02 Urine Blood Small (Negative) H 02/08/17 13:02 Ur Leukocyte Esterase Large (Negative) H 02/08/17 13:02 Urine Microscopic WBC TNTC per hpf (0-3) H 02/08/17 13:02 Ur Squamous Epith Cells Many per lpf (None-Few) H 02/08/17 13:02 Urine Bacteria Moderate per hpf (None-Few) H 02/08/17 13:02 Ur Culture Indicated? YES (NO) A 02/08/17 13:02 All other labs normal. - Diagnostic results Hip x-ray: image reviewed (Non displaced R femoral neck fx) Consult Discharge Plan - Plan Referrals: Salvador Alfredo MD [Primary Care Provider] -
[2017-02-08] MEDS ORDERED: Niacin (24 HR) 500 MG TAB.ER.24H PO SCH (21:00)
[2017-02-09 04:38] LABS: Basophils # 0.1 K/mcL (0.0-0.2); Basophils % 1.1 %; Eosinophils # 0.8 K/mcL (0.0-0.6); Eosinophils % 8.8 %; Hematocrit 48.8 % (35.3-44.9); Hemoglobin 16.6 g/dL (11.5-15.4); Immature Granulocytes % 0.3 % (0-4); Lymphocytes # 2.3 K/mcL (0.6-4.6); Lymphocytes % 25.2 %; Mean Corpuscular Hemoglobin 32.4 pg (28.0-33.3); Mean Corpuscular Volume 95.1 fL (83.0-100.0); Mean Platelet Volume 10.5 fL (9.4-12.4); Monocytes # 0.8 K/mcL (0.0-1.3); Monocytes % 8.3 %; Neutrophils # 5.1 K/mcL (1.6-8.9); Platelet Count 148 K/mcL (140-400); Red Blood Count 5.13 M/mcL (3.82-4.97); Red Cell Distribution Width 13.8 % (11.5-14.5); Segmented Neutrophils % 56.3 %
[2017-02-09 04:54] LABS: BUN/Creatinine Ratio 24 (6-26); Blood Urea Nitrogen 18 mg/dL (7-20); Calcium 9.2 mg/dL (8.6-10.8); Carbon Dioxide 23 mEq/L (19-29); Chloride 108 mEq/L (98-109); Glucose 108 mg/dL (70-99); Osmolality,Calculated 292 (280-300); Potassium 3.7 mEq/L (3.5-4.5); Sodium 140 mEq/L (136-145); eGFR For African Americans > 60 (> 60); eGFR For Non-African Americans > 60 (> 60)
[2017-02-09] MEDS ORDERED: *HR* Enoxaparin 40 MG/0.4 ML SYRINGE SQ SCH (06:00)
--- NOTE | 2017-02-09 08:08 | Orthopedics Progress Note ---
Date of Encounter: 02/09/17 Time of Encounter: 08:06 - Assessment and Plan (1) Fracture of hip, right, closed Current Visit: Yes Status: Acute Qualifiers: Encounter type: initial encounter Qualified Code(s): S72.001A - Fracture of unspecified part of neck of right femur, initial encounter for closed fracture Subjective Principal diagnosis: R hip fracture Interval history: S: R hip pain well controlled. No new ortho complaints. No CP/SOB O: AFVSS GEN: NAD RLE: +log roll/IR DNVI A/P: 76 yo F with R FNFx -NPO -Plan for CRPP today -Consent signed -Bedrest until OR Objective Vital signs: Vital Signs Temp Pulse Resp BP Pulse Ox 02/09/17 07:49 98.8 F 76 16 166/99 96 02/09/17 03:44 98.8 F 65 15 142/80 93 02/08/17 23:53 98.6 F 67 16 104/67 93 02/08/17 20:21 98.0 F 65 18 119/80 95 Intake and Output 02/08/17 02/09/17 02/09/17 23:59 07:59 15:59 Intake Total 50 / 290 Output Total 350 / 350 100 / 100 Balance -300 / -60 -100 / -100 Intake: Oral 50 / 290 Output: Catheter 350 / 350 100 / 100 Other: Weight 79.52 kg Blood Glucose* 116 Patient Weight 02/09/17 23:59 Weight 79.52 kg - Labs CBC & BMP: 02/09/17 04:25 02/09/17 04:25 Labs: Abnormal lab results RBC 5.13 M/mcL (3.82-4.97) H 02/09/17 04:25 Hgb 16.6 g/dL (11.5-15.4) H 02/09/17 04:25 Hct 48.8 % (35.3-44.9) H 02/09/17 04:25 Eosinophils # 0.8 K/mcL (0.0-0.6) H 02/09/17 04:25 Glucose 108 mg/dL (70-99) H 02/09/17 04:25 POC Glucose 116 (58-89) H 02/09/17 05:40 Urine Clarity Cloudy (Clear) A 02/08/17 13:02 Ur Specific [place] 1.027 (1.010-1.025) H 02/08/17 13:02 Urine Blood Small (Negative) H 02/08/17 13:02 Ur Leukocyte Esterase Large (Negative) H 02/08/17 13:02 Urine Microscopic WBC TNTC per hpf (0-3) H 02/08/17 13:02 Ur Squamous Epith Cells Many per lpf (None-Few) H 02/08/17 13:02 Urine Bacteria Moderate per hpf (None-Few) H 02/08/17 13:02 Ur Culture Indicated? YES (NO) A 02/08/17 13:02 Consult Discharge Plan - Plan Referrals: Sayda,Salvador Alicea MD [Primary Care Provider] -
[2017-02-09] MEDS ORDERED: (Fish Oil/Dha/Epa [Fish Oil 1,200 Mg Fish Oil] 1 EACH PO SCH (09:00)
[2017-02-09] MEDS ORDERED: hydroCHLOROthiazide 25 MG TABLET PO SCH (09:00)
[2017-02-09] MEDS ORDERED: Lisinopril 20 MG TABLET PO SCH (09:00)
[2017-02-09] MEDS ORDERED: (Febuxostat [Uloric] 40 MG) PO SCH (09:00)
[2017-02-09 11:06] LABS: INR 1.2; Prothrombin Time 13.1 Seconds (9.4-12.1)
[2017-02-09 11:09] LABS: Activated Partial Thrombo Time 31.1 Seconds (26.0-36.0)
--- NOTE | 2017-02-09 14:11 | Electrocardiograph Report ---
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
--- NOTE | 2017-02-09 14:40 | History & Physical Report ---
Date of Encounter: 02/09/17 Time of Encounter: 14:39 24 Hour HP Update - Instructions Instructions: If the History and Physical is less than 30 days old and was completed prior to A.M. admission and or procedure and has NOT been updated on calendar day of procedure please complete this update prior to performing procedure. - Update Patient reports changes in Medical Condition: No Changes in examination, assessment, or condition: No Changes in Medication: No Preop tests/diagnostics Reviewed: Yes Surgery Remains Indicated: Yes Consent for Planned Operative Procedure(s) Verified: Yes
[2017-02-09 15:29] LABS: Magnesium 1.7 mg/dL (1.6-2.6); Phosphorous 2.9 mg/dL (2.3-4.7)
[2017-02-09] MEDS ORDERED: Lidocaine -MPF 2% 2 ML VIAL ONE (15:54)
[2017-02-09] MEDS ORDERED: Ondansetron 4 MG/2 ML VIAL ONE (15:54)
[2017-02-09] MEDS ORDERED: *HR* FentaNYL (PF) 100 MCG/2 ML VIAL ONE (15:55)
[2017-02-09] MEDS ORDERED: *HR* Propofol 200 MG/20 ML VIAL IVP ONE (15:55)
[2017-02-09] MEDS ORDERED: Dexamethasone 4 MG/ML VIAL ONE (16:36)
--- NOTE | 2017-02-09 17:14 | Anesthesia Evaluation PreOp ---
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 History: CVA (3-4 years ago, slight speech difficulty), TIA Anesthesia History: No Prior Anesthetic Complications, Past Anesthesia (AISSATOU, Pacemaker, IVC filter) : No Alcohol Use: none Drug use: none Medications and Allergies Carvedilol 12.5 mg PO BID 05/04/15 [History] Lisinopril [Zestril] 20 mg PO DAILY 05/04/15 [History] Niacin [Niaspan] 500 mg PO HS 05/04/15 [History] Potassium Chloride [Klor-Con Sprinkle] 10 meq PO BID 05/04/15 [History] Fish Oil/Dha/Epa [Fish Oil 1,200 mg Fish Oil] 1 each PO DAILY 04/18/16 [History] hydroCHLOROthiazide [Hydrochlorothiazide] 12.5 mg PO DAILY 04/18/16 [History] Febuxostat [Uloric] 40 mg PO DAILY 07/25/16 [History] Aspirin 81 mg PO DAILY 02/08/17 [History] Oxybutynin Chloride [Ditropan Xl] 5 mg PO DAILY 02/08/17 [History] 3 Allergy/AdvReac Type Severity Reaction Status Date / Time adhesive tape AdvReac Blister Verified 02/08/17 13:08 Latex, Natural Rubber AdvReac Blister Verified 02/08/17 13:08 Skzdtgk-Uur-Djm Reductase AdvReac Joint Pain Verified 02/08/17 13:08 Inhibitor [Statins] - Meds/Allergy Pre-op Review Medications Reviewed: Yes Allergies Reviewed: Yes Beta Blockers on Current Med List: Yes If Beta Blockers taken, Date/Time (Last Dose taken): 09:54 02/09/2017 Anesthesia Results - Labs 02/09/17 04:25 02/09/17 04:25 Echocardiogram Name: Monicaricky Rao Date of Study: 09/27/2016 Impressions: LVEF 60-65%. Normal LV chamber size and function. Mild concentric left ventricular hypertrophy. Indeterminate diastolic function. Atypical septal motion consistent with paced rhythm. Normal right ventricular structure and function. Mild tricuspid regurgitation. Mild pulmonary hypertension. Anesthesia Exam O2 Sat Weight 79.52 kg O2 Sat by Pulse Oximetry 94 O2 Sat by Pulse Oximetry 92 O2 Sat by Pulse Oximetry 96 O2 Sat by Pulse Oximetry 93 O2 Sat by Pulse Oximetry 93 O2 Sat by Pulse Oximetry 95 Vital Signs Temp Pulse Resp BP Pulse Ox 98.6 F 82 20 132/105 95 02/08/17 11:29 02/08/17 11:29 02/08/17 11:29 02/08/17 11:29 02/08/17 11:29 Vital Signs/O2 Sat, Most Current Temp Pulse Resp BP Pulse Ox 98.5 F 82 16 169/94 94 02/09/17 15:56 02/09/17 15:56 02/09/17 15:56 02/09/17 15:56 02/09/17 15:56 Height: 5'3'' Weight: 175# NPO (# of Hours): > 8 hrs Pain Scale: 0 Pain Scale Used: Numeric (1 - 10) - HEENT Pupil (Motor): Pupils equal, EOMI Mallampati: III Teeth: Edentulous Oral Opening: Greater than 3 - [employer]ING [employer]ING [employer]PER[employer]OR LOC: Oriented [employer] SUPER[employer]OR Motor: Normal RUE, Normal LUE, Normal RLE, Normal LLE, Normal Face [employer]PER[employer]OR Sensory: Normal: RUE, LUE, RLE, LLE, Face - Cardiac Rhythm: Regular Murmur: None JVD: No Carotid Bruit: No - Pulmonary Breath Sounds: bilateral Clear Respiratory Effort: Symmetrical Anesthesia Assess/Plan ASA Score: 3 Modified Reji Scale for Level of Consciousness: Cooperative, oriented, and tranquil Anesthetic Plan: General Autologous Blood: Yes Monitoring Plan: Standard Monitors Recovery Plan: PACU
[2017-02-09] MEDS ORDERED: *HR* Promethazine 25 MG/ML VIAL IVP PRN (17:57)
[2017-02-09] MEDS ORDERED: *HR* Labetalol 20 MG/4 ML SYRINGE IVP PRN ×2 (17:57→19:14)
[2017-02-09] MEDS ORDERED: *HR* HYDROmorphone (PF) 1 MG/ML SYRINGE IVP PRN (17:57)
--- NOTE | 2017-02-09 18:29 | Orthopedic Operative Note ---
Date of procedure: 02/09/17 Pre-op diagnosis: Right femoral neck fracture Post-op diagnosis: same Procedure: 1. Closed reduction percutaneous pinning right hip INDICATIONS: This is a [id number] female who had a fall and sustained a right non-displaced femoral neck fracture. After discussing the procedure at length, the patient elected for operative management with a closed reduction and percutaneous pinning of the right hip. The risks and benefits of the procedure were fully explained. Those risks include but are not limited to, infection, neurovascular injury, continued pain, arthritis, stiffness, further injury, need for further surgery, DVT, PE, loss of limb, and loss of life. The patient understood all of these risks and wished to proceed. Informed consent was obtained. No guarantees were stated or implied. OPERATIVE REPORT: The patient was identified in the holding area. The right lower extremity was marked, the patient was taken to the operating room and general anesthetic was administered on the hospital bed. The patients head, neck and airway were protected by anesthesia through the case. The patient was then transferred to the fracture table and placed in the supine position with a well padded perineal post. All bony prominences were well padded. The right leg was attached to the traction device on the fracture bed. The left leg was then placed in a well leg torres and positioned out of the way of fluoroscopy. We then obtained fluoroscopic images in AP and lateral planes confirming fracture reduction and alignment. The right lower extremity was then prepped and draped in the normal manner. Preoperative antibiotics were given prior to incision. A surgical time out protocol was then performed. We percutaneously placed a guidepin centrally and slightly inferior across the femoral neck up to the head, ensuring no penetration of the femoral head. We then made a 3 cm incision proximally from the guidepin, and placed 2 more guidepins, proximal and anterior and posterior to the first pin. Placement of the guidepins were confirmed on AP and lateral fluoroscopy. We then measured the appropriate screw lengths, and drilled and placed 3 6.5mm cannulated screws across the fracture site in an inverted triangle pattern. At this point we obtained final fluoroscopic images of the right hip in both AP and lateral planes. We then thoroughly irrigated the wound and closed the subcutaneous tissues with 2-0 Vicryl. Skin was closed with roberto. We then placed sterile dressings the patient was awoken by anesthesia and transferred to PACU in stable condition. Patient tolerated the procedure well. Postop plan: The patient will be transferred back to the floor and will be weight-bearing as tolerated postop. Implants: Synthes 6.5 mm cannulated screws Complications: none Anesthesia: RADHA Surgeon: Joaquin Jimenez Estimated blood loss (cc): 25 Condition: stable Disposition: PACU
[2017-02-09] MEDS ORDERED: Ringers Solution, Lactated 1,000 ML ONE (18:58)
--- NOTE | 2017-02-09 19:09 | Anesthesia Evaluation Post Op ---
Date of Encounter: 02/09/17 Time of Encounter: 19:08 - Vital Signs Vital Signs: Last Vital Signs Temp 98.7 F 02/09/17 19:02 Pulse 80 02/09/17 19:02 Resp 14 02/09/17 19:02 BP 151/93 02/09/17 19:02 Pulse Ox 96 02/09/17 19:02 - Lungs Lungs: Clear Ascult./Percussion - Airway Airway: Non-obstructed - Cardiovascular Regular Rate - Mental Status Mental Status: Alert & Oriented, Answers Appropriately - Pain Pain Scale: 2 - Nausea Vomiting Nausea Vomiting: Not Present - Hydration Hydration: NPO - Discharge PostOp Status: Transfer Patient to floor
[2017-02-09] MEDS ORDERED: Naloxone 0.4 MG/ML INJ IVP PRN ×2 (19:14)
[2017-02-09] MEDS ORDERED: Ondansetron 4 MG/2 ML VIAL IVP PRN (19:14)
[2017-02-09] MEDS ORDERED: *HR* Morphine 2 MG/ML SYRINGE IVP PRN (19:14)
[2017-02-09] MEDS ORDERED: Niacin (24 HR) 500 MG TAB.ER.24H PO SCH (21:00)
--- NOTE | 2017-02-09 23:08 | Internal Med Progress Note ---
Date of Encounter: 02/09/17 Time of Encounter: 12:32 - Assessment and plan (1) Fracture of hip, right, closed Current Visit: Yes Status: Acute Assessment and plan: Patient has no current complaints of chest pain, SOB. EKG reviewed today. Based on type of surgery and patients medical history, she is low risk and can go for surgery today. Appreciate recommendations from Ortho on best time to resume antiplatelet therapy post op. Qualifiers: Encounter type: initial encounter Qualified Code(s): S72.001A - Fracture of unspecified part of neck of right femur, initial encounter for closed fracture (2) Fall Current Visit: Yes Status: Acute Qualifiers: Encounter type: initial encounter Qualified Code(s): W19.XXXA - Unspecified fall, initial encounter (3) Atrial fibrillation Current Visit: No Status: Chronic Qualifiers: Atrial fibrillation type: chronic Qualified Code(s): I48.2 - Chronic atrial fibrillation (4) CAD (coronary artery disease) Current Visit: No Status: Acute Qualifiers: Coronary Disease-Associated Artery/Lesion type: unspecified vessel or lesion type [place] vs. transplanted heart: unspecified whether [place] or transplanted heart Associated angina: angina presence unspecified Qualified Code(s): I25.10 - Atherosclerotic heart disease of [place] coronary artery without angina pectoris (5) CHF (congestive heart failure) Current Visit: No Status: Acute Qualifiers: Congestive heart failure type: diastolic Congestive heart failure chronicity: chronic Qualified Code(s): I50.32 - Chronic diastolic (congestive ) heart failure (6) History of CVA (cerebrovascular accident) Current Visit: No Status: Chronic (7) HTN (hypertension) Current Visit: No Status: Chronic Qualifiers: Hypertension type: essential hypertension Qualified Code(s): I10 - Essential (primary) hypertension - Subjective Interval history: No complaints, pain controlled. Surgery scheduled for today EKG obtained and reviewed. - Constitutional Vitals: Temp Pulse Resp BP Pulse Ox 98.1 F 82 18 169/83 96 02/09/17 20:15 02/09/17 20:15 02/09/17 20:15 02/09/17 20:15 02/09/17 20:15 Exam: General: no acute distress Head: autraumatic, EOMI, MMM Neck: neck soft, trachea midline Lungs: Normal lungs sounds bilaterally, no wheezes, no respiratory distress Heart: normal heart sounds, normal rate, irregular rhythm Abdomen: soft, non-tender, no rigidity, no guarding, no rebdound tenderness Pelvis: Pain elicited upon compression of the right pelvic brim, no tenderness to compression of the left pelvic rim. Lower Extremities: no pedal edema, calves non-tender Integumentary: Skin warm, dry, and intact Neuro: Alert and oriented to person, place, time, GCS 15, cranial nerves II through XII grossly intact, decreased right leg strength that is 4 out of 5, but lifting elicits tenderness in the right hip. Sensation intact throughout. Psych: normal affect, normal mood Internal Medicine: Result - Labs CBC & Chem 7: 02/09/17 04:25 02/09/17 04:25 Labs: Short CBC 02/09/17 Range/Units 04:25 WBC 9.1 (4.3-11.1) K/mcL Hgb 16.6 H (11.5-15.4) g/dL Hct 48.8 H (35.3-44.9) % Plt Count 148 (140-400) K/mcL Neutrophils # 5.1 (1.6-8.9) K/mcL BMP 02/09/17 04:25 Sodium 140 Potassium 3.7 Chloride 108 Carbon Dioxide 23 BUN 18 Creatinine 0.76 Glucose 108 H Calcium 9.2 - ABG Interpretation ABG results: PT/INR, D-dimer PT 13.1 Seconds (9.4-12.1) H 02/09/17 10:47 - Impressions Impressions Fluoroscopy 02/09/17 00:00 IMPRESSION: Intraprocedural fluoroscopic spot images as above. See separate procedure report for more information. D/ / Toni Flannery MD / Toni Flannery MD Interpreting Provider: Toni Flannery MD Hip X-Ray 02/09/17 00:00 IMPRESSION: Intraprocedural fluoroscopic spot images as above. See separate procedure report for more information. D/ / Toni Flannery MD / Toni Flannery MD Interpreting Provider: Toni Flannery MD Hip X-Ray 02/09/17 18:34 IMPRESSION: Status post fixation of the right femoral neck without complication identified. D/ / Freeman Rao MD / Freeman Rao MD Interpreting Provider: Freeman Rao MD - VTE Documentation of Mechanical Device: Intermittent pneumatic compression device Consult Discharge Plan - Plan Referrals: Salvador howell MD [Primary Care Provider] -
[2017-02-10] MEDS: CeFAZolin Premix DUPLEX 2,000 MG/50 ML BAG IVPB SCH ×2 (00:21→08:51)
[2017-02-10] MEDS ORDERED: *HR* Enoxaparin 40 MG/0.4 ML SYRINGE SQ SCH (06:00)
[2017-02-10] MEDS ORDERED: (Febuxostat [Uloric] 40 MG) PO SCH (09:00)
[2017-02-10] MEDS ORDERED: hydroCHLOROthiazide 25 MG TABLET PO SCH (09:00)
[2017-02-10] MEDS ORDERED: Lisinopril 20 MG TABLET PO SCH (09:00)
[2017-02-10 12:50] VITALS: BP 109/66
--- NOTE | 2017-02-10 14:51 | Orthopedics Progress Note ---
Date of Encounter: 02/10/17 Time of Encounter: 08:30 - Assessment and Plan (1) Fracture of hip, right, closed Current Visit: Yes Status: Acute Qualifiers: Encounter type: initial encounter Qualified Code(s): S72.001A - Fracture of unspecified part of neck of right femur, initial encounter for closed fracture Subjective Principal diagnosis: R hip fracture Interval history: S: Doing well post op. No new ortho complaints. No f/c/ns. No n/v. O: AFVSS GEN: NAD RLE: dressing c/d/i DNVI s/s/t/sp/dp A/P: POD#1 s/p R hip CRPP -WBAT with PT -PO pain control and DVT prophylaxis per primary service -F/u in 2 weeks in office Objective Vital signs: Vital Signs Temp Pulse Resp BP Pulse Ox 02/10/17 12:46 98.2 F 72 15 109/66 94 02/10/17 08:59 73 15 137/87 92 02/10/17 07:33 98.1 F 73 15 137/87 92 02/10/17 04:41 97.7 F 76 15 139/86 93 02/09/17 23:14 98.3 F 76 18 129/87 97 02/09/17 20:15 98.1 F 82 18 169/83 96 02/09/17 19:31 99.8 F H 82 18 156/95 94 02/09/17 19:15 98.3 F 73 18 153/83 96 02/09/17 19:02 98.7 F 80 14 151/93 96 02/09/17 18:51 76 17 148/86 93 02/09/17 18:41 84 12 143/89 95 02/09/17 18:31 99.1 F 74 12 131/78 98 02/09/17 15:56 98.5 F 82 16 169/94 94 Intake and Output 02/09/17 02/10/17 02/10/17 23:59 07:59 15:59 Intake Total 50 / 50 Output Total 325 / 325 Balance -325 / -325 50 / 50 Intake: IV Fluids 50 / 50 Ancef Premix DUPLEX 2,000 mg In 50 / 50 50 ml @ 100 mls/hr IVPB Q8HR [facility] Rx#:[id number] Output: Urine 0 / 0 Estimated Blood Loss Catheter 300 / 300 Other: Weight 84 kg Patient Weight 02/10/17 23:59 Weight 84 kg - Labs CBC & BMP: 02/09/17 04:25 02/09/17 04:25 Labs: Abnormal lab results RBC 5.13 M/mcL (3.82-4.97) H 02/09/17 04:25 Hgb 16.6 g/dL (11.5-15.4) H 02/09/17 04:25 Hct 48.8 % (35.3-44.9) H 02/09/17 04:25 Eosinophils # 0.8 K/mcL (0.0-0.6) H 02/09/17 04:25 PT 13.1 Seconds (9.4-12.1) H 02/09/17 10:47 Glucose 108 mg/dL (70-99) H 02/09/17 04:25 POC Glucose 116 (58-89) H 02/09/17 05:40 Urine Clarity Cloudy (Clear) A 02/08/17 13:02 Ur Specific [place] 1.027 (1.010-1.025) H 02/08/17 13:02 Urine Blood Small (Negative) H 02/08/17 13:02 Ur Leukocyte Esterase Large (Negative) H 02/08/17 13:02 Urine Microscopic WBC TNTC per hpf (0-3) H 02/08/17 13:02 Ur Squamous Epith Cells Many per lpf (None-Few) H 02/08/17 13:02 Urine Bacteria Moderate per hpf (None-Few) H 02/08/17 13:02 Ur Culture Indicated? YES (NO) A 02/08/17 13:02 - VTE Documentation of Mechanical Device: Venous foot pump, device Consult Discharge Plan - Plan Additional Instructions: Dr. Jimenez PROCEDURE PERFORMED Reduction and fixation of right hip. Incision care -Keep dressing on until follow up. May shower with dressing on. -Avoid soaking wound in water (no hot tubs, bathtubs, swimming pools). -Don't rub the incision, or apply creams or lotions. Sit on a shower stool when showering to keep from falling. Weight bearing status -Weightbearing as tolerated to the bilateral lower extremities. Medications -Pain medication per the discharging medical doctor -Enteric coated aspirin 325 mg by mouth twice per day for 28 days from the date of the surgery. [-Resume 50,000 units of vitamin D2 weekly and 1200 mg of calcium supplementation per day.] Other -Consult physical and occupational therapy for mobilization. -Up to chair with assistance at least twice per day. -Follow up with your primary care physician to discuss testing for bone mineral density. Follow-up with Dr. Jimenez at the office 2 weeks from the surgery date for a post operative evaluation. Call the office at [phone] to schedule appointment. Referrals: Salvador howell MD [Primary Care Provider] -
--- NOTE | 2017-02-10 14:54 | Physician Discharge Referral ---
Home Health/Hosp Referral Info Transfer to: Home Health - Diagnosis (1) Fracture of hip, right, closed Status: Acute - Respiratory Orders Smoking Cessation: Smoking cessation has been advised. For more information, call the [place] Tobacco Quit Line at 7-837-DWAP-NOW. - Diet/Nutrition Diet/Nutrition Orders: Regular - Activity Activity Orders: Ambulate, Walker - Services Needed Following services are medically necessary services: Nursing, Home Health Aide, Physical Therapy, Occupational Therapy Other Treatments: [facility] DISCHARGE INSTRUCTIONS Dr. Jimenez PROCEDURE PERFORMED Reduction and fixation of right hip. Incision care -Keep dressing on until follow up. May shower with dressing on. -Avoid soaking wound in water (no hot tubs, bathtubs, swimming pools). -Don't rub the incision, or apply creams or lotions. Sit on a shower stool when showering to keep from falling. Weight bearing status -Weightbearing as tolerated to the bilateral lower extremities. Medications -Pain medication per the discharging medical doctor -Enteric coated aspirin 325 mg by mouth twice per day for 28 days from the date of the surgery. [-Resume 50,000 units of vitamin D2 weekly and 1200 mg of calcium supplementation per day.] Other -Consult physical and occupational therapy for mobilization. -Up to chair with assistance at least twice per day. -Follow up with your primary care physician to discuss testing for bone mineral density. Follow-up with Dr. Jimenez at the office 2 weeks from the surgery date for a post operative evaluation. Call the office at [phone] to schedule appointment. - Transfer Medications Home Medications: Carvedilol 12.5 mg PO BID 05/04/15 [History] Lisinopril [Zestril] 20 mg PO DAILY 05/04/15 [History] Niacin [Niaspan] 500 mg PO HS 05/04/15 [History] Potassium Chloride [Klor-Con Sprinkle] 10 meq PO BID 05/04/15 [History] Fish Oil/Dha/Epa [Fish Oil 1,200 mg Fish Oil] 1 each PO DAILY 04/18/16 [History] hydroCHLOROthiazide [Hydrochlorothiazide] 12.5 mg PO DAILY 04/18/16 [History] Febuxostat [Uloric] 40 mg PO DAILY 07/25/16 [History] Aspirin 81 mg PO DAILY 02/08/17 [History] Oxybutynin Chloride [Ditropan Xl] 5 mg PO DAILY 02/08/17 [History] Allergies/Adverse Reactions: 3 Allergy/AdvReac Type Severity Reaction Status Date / Time adhesive tape AdvReac Blister Verified 02/08/17 13:08 Latex, Natural Rubber AdvReac Blister Verified 02/08/17 13:08 Lgcgpda-Ihy-Qmi Reductase AdvReac Joint Pain Verified 02/08/17 13:08 Inhibitor [Statins] Certification: Further, I certify that my clinical findings support that this patient is homebound (i.e. absences from home require considerable and taxing effort and are for medical reasons or confucianist services or infrequently or short duration when for other reasons) because: Homebound Reason: Patient requires assistance of a person or device to safely leave home Attestation: My signature below is to certify that this patient is under my care and that I, or nurse practitioner, or a physician's golf course assistant working with me, has a face-to -face encounter with this patient.
--- NOTE | 2017-02-10 15:18 | Discharge Summary ---
Date of Encounter: 02/10/17 Time of Encounter: 15:17 - Discharge Diagnosis (1) Fracture of hip, right, closed Priority: Primary Status: Acute Qualifiers: Encounter type: initial encounter Qualified Code(s): S72.001A - Fracture of unspecified part of neck of right femur, initial encounter for closed fracture (2) Fall Priority: Secondary Status: Acute Qualifiers: Encounter type: initial encounter Qualified Code(s): W19.XXXA - Unspecified fall, initial encounter (3) Atrial fibrillation Priority: Secondary Status: Chronic Qualifiers: Atrial fibrillation type: chronic Qualified Code(s): I48.2 - Chronic atrial fibrillation (4) CAD (coronary artery disease) Priority: Secondary Status: Acute Qualifiers: Coronary Disease-Associated Artery/Lesion type: unspecified vessel or lesion type [place] vs. transplanted heart: unspecified whether [place] or transplanted heart Associated angina: angina presence unspecified Qualified Code(s): I25.10 - Atherosclerotic heart disease of [place] coronary artery without angina pectoris (5) CHF (congestive heart failure) Priority: Secondary Status: Acute Qualifiers: Congestive heart failure type: diastolic Congestive heart failure chronicity: chronic Qualified Code(s): I50.32 - Chronic diastolic (congestive ) heart failure (6) History of CVA (cerebrovascular accident) Priority: Secondary Status: Chronic (7) HTN (hypertension) Priority: Secondary Status: Chronic Qualifiers: Hypertension type: essential hypertension Qualified Code(s): I10 - Essential (primary) hypertension - Discharge Medications Home Medications: Carvedilol 12.5 mg PO BID 05/04/15 [History] Lisinopril [Zestril] 20 mg PO DAILY 05/04/15 [History] Niacin [Niaspan] 500 mg PO HS 05/04/15 [History] Potassium Chloride [Klor-Con Sprinkle] 10 meq PO BID 05/04/15 [History] Fish Oil/Dha/Epa [Fish Oil 1,200 mg Fish Oil] 1 each PO DAILY 04/18/16 [History] hydroCHLOROthiazide [Hydrochlorothiazide] 12.5 mg PO DAILY 04/18/16 [History] Febuxostat [Uloric] 40 mg PO DAILY 07/25/16 [History] Aspirin 81 mg PO DAILY 02/08/17 [History] Oxybutynin Chloride [Ditropan Xl] 5 mg PO DAILY 02/08/17 [History] Allergies/Adverse Reactions: 3 Allergy/AdvReac Type Severity Reaction Status Date / Time adhesive tape AdvReac Blister Verified 02/08/17 13:08 Latex, Natural Rubber AdvReac Blister Verified 02/08/17 13:08 [place]ms-Ntk-Ztw Reductase AdvReac Joint Pain Verified 02/08/17 13:08 Inhibitor [Statins] Date of admission: 02/08/17 15:16 Primary care physician: Salvador Alfredo MD Consults: 02/09/17 19:14 Consult to Occupational Therapy [CONS] Routine Comment: Evaluate, develop and implement POC Reason for Consult: post hip surgery Consult to Orthopedic Navigator [CONS] [CONS] Routine Consult to Physical Therapy [CONS] Routine Comment: Evaluate, develop and implement POC Reason for Consult: post hip surgery Consult to Head Turning Machine Operator [CONS] Routine Reason for SW Consult: post -op hip fracture RT Post Op Consult [CONS] Routine Discharging clinician: Chris Polanco - Patient Status Disposition: Home Health Service Condition: Fair Functional capacity at discharge: wheelchair bound Overall status at discharge: patient is progressing back to baseline - Discharge Instructions Follow Up With: Salvador Alfredo MD [Primary Care Provider] - Additional Instructions: Dr. Jimenez PROCEDURE PERFORMED Reduction and fixation of right hip. Incision care -Keep dressing on until follow up. May shower with dressing on. -Avoid soaking wound in water (no hot tubs, bathtubs, swimming pools). -Don't rub the incision, or apply creams or lotions. Sit on a shower stool when showering to keep from falling. Weight bearing status -Weightbearing as tolerated to the bilateral lower extremities. Medications -Pain medication per the discharging medical doctor -Enteric coated aspirin 325 mg by mouth twice per day for 28 days from the date of the surgery. [-Resume 50,000 units of vitamin D2 weekly and 1200 mg of calcium supplementation per day.] Other -Consult physical and occupational therapy for mobilization. -Up to chair with assistance at least twice per day. -Follow up with your primary care physician to discuss testing for bone mineral density. Follow-up with Dr. Jimenez at the office 2 weeks from the surgery date for a post operative evaluation. Call the office at [phone] to schedule appointment. - Diet and Activity Activity: as per physical therapy Diet: advance to your usual diet Hospital course: Ms. Rao is a 76 year old female 76-year-old female past medical history of TIAs, pacemaker, presented to the emergency department with right hip pain and trouble walking after a fall last night after tripping while carrying heavy bags inside the house. Per ED note, patient had difficulty with speech. However upon arrival to floor patient denies any focal neuro defecits, facial droop, dysphagia, imbalance, focal weakness. She did hit the back of her head after fall. She denies any LOC, denies headache, fevers, change in vision, nausea/vomiting, lightheadedness. She states this was simply a mechanical fall after carrying bags inside. X-ray of the right hip confirmed a acute nondisplaced fracture of the femoral neck. Orthopedic surgery was consulted. CT angiogram of the head and neck was done showing tortuous appearing common carotid arteries but there was less than 50% stenosis. There was no intracranial abnormalities. Patient was observed under medical floor. On 02/09/17 patient underwent closed reduction with percutaneous pinning of the right hip. She tolerated procedure well. She had no focal neuro deficits upon multiple reassessments. Patient was discharged home in stable condition. In regards to atrial fibrillation prior history of stroke, patient is a high risk for stroke based on her past history, but she is also high risk for bleeding as she has a HAS-BLED score 4. He has on 81 mg of aspirin and is on Coreg for rate control. She has intolerance to statins. Electronic medical records reviewed; patient has a documented history of intracranial hemorrhage. Time spent discussing smoking cessation with patient: 3 to 10 minutes - Time Spent with Patient Total time spent providing and/or coordinating discharge services: Less than 30 minutes - Constitutional Vitals: Temp Pulse Resp BP Pulse Ox 98.2 F 72 15 109/66 94 02/10/17 12:46 02/10/17 12:46 02/10/17 12:46 02/10/17 12:46 02/10/17 12:46 Exam: General: no acute distress Head: autraumatic, EOMI, MMM Neck: neck soft, trachea midline Lungs: Normal lungs sounds bilaterally, no wheezes, no respiratory distress Heart: normal heart sounds, normal rate, irregular rhythm Abdomen: soft, non-tender, no rigidity, no guarding, no rebdound tenderness Pelvis: Pain elicited upon compression of the right pelvic brim, no tenderness to compression of the left pelvic rim. Lower Extremities: no pedal edema, calves non-tender Integumentary: Skin warm, dry, and intact Neuro: Alert and oriented to person, place, time, GCS 15, cranial nerves II through XII grossly intact, decreased right leg strength that is 4 out of 5, but lifting elicits tenderness in the right hip. Sensation intact throughout. Psych: normal affect, normal mood - VTE Documentation of Mechanical Device: Venous foot pump, device
--- NOTE | 2017-02-12 19:16 | Electrocardiograph Report ---
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
== END 2017-02-10 16:57 | disposition home health service (06) ==
LOC: 3NENU 11:25 → EMEROO 11:25 → 3NENU 16:20
PROVIDERS: ADMIT Student in an Organized Health Care Education/Training Program; ATTEND Hospitalist

== ENCOUNTER 2020-10-19 18:41 | Observation (INO) ==
[2020-10-19 19:47] LABS: Basophils # 0.1 K/mcL (0.0-0.2); Basophils % 0.6 %; Eosinophils # 0.6 K/mcL (0.0-0.6); Eosinophils % 3.6 %; Hematocrit 49.6 % (35.3-44.9); Hemoglobin 16.7 g/dL (11.5-15.4); Immature Granulocytes % 0.7 % (0-4); Lymphocytes # 1.3 K/mcL (0.6-4.6); Lymphocytes % 7.2 %; Mean Corpuscular HGB Conc 33.7 g/dL (31.6-35.5); Mean Corpuscular Hemoglobin 33.8 pg (28.0-33.3); Mean Corpuscular Volume 100.4 fL (83.0-100.0); Mean Platelet Volume 10.9 fL (9.4-12.4); Monocytes # 0.9 K/mcL (0.0-1.3); Monocytes % 4.8 %; Neutrophils # 14.8 K/mcL (1.6-8.9); Platelet Count 154 K/mcL (140-400); Red Blood Count 4.94 M/mcL (3.82-4.97); Red Cell Distribution Width 14.7 % (11.5-14.5); Segmented Neutrophils % 83.1 %; White Blood Count 17.8 K/mcL (4.3-11.1)
[2020-10-19 20:05] LABS: BUN/Creatinine Ratio 20 (6-26); Blood Urea Nitrogen 13 mg/dL (8-23); Calcium 8.9 mg/dL (8.6-10.3); Carbon Dioxide 22 mEq/L (23-29); Chloride 104 mEq/L (98-107); Glucose 141 mg/dL (70-105); Osmolality,Calculated 284 (280-300); Potassium 3.7 mEq/L (3.5-5.1); Sodium 136 mEq/L (136-145); eGFR For African Americans > 60 (> 60); eGFR For Non-African Americans > 60 (> 60)
[2020-10-19 20:06] LABS: Troponin I < 0.03 ng/mL (< 0.04)
[2020-10-19 20:07] LABS: INR 1.2
[2020-10-19] MEDS ORDERED: Isovue-370 500 ML BOTTLE IVP ONE (21:21)
[2020-10-19] MEDS ORDERED: Furosemide 40 MG/4 ML VIAL IVP ONE (21:22)
[2020-10-19] MEDS ORDERED: Azithromycin 500 MG in 0.9 % Sodium Chloride 250 ML IVPB ONE (21:23)
[2020-10-19] MEDS ORDERED: cefTRIAXone 1,000 MG in Water for inj. (sterile) 10 ML IVP ONE (21:23)
[2020-10-19] MEDS ORDERED: Ipratropium/Albuterol Neb 3 ML IH ONE (22:48)
[2020-10-19] MEDS ORDERED: methylPREDNISolone 125 MG/2 ML VIAL IVP ONE (22:48)
[2020-10-19 23:19] LABS: Adenovirus Not Detected (Not Detect); Bordetella Pertussis Not Detected (Not Detect); Chlamydophila pneumoniae Not Detected (Not Detect); Coronavirus 229E Not Detected (Not Detect); Coronavirus HKU1 Not Detected (Not Detect); Coronavirus NL63 Not Detected (Not Detect); Coronavirus OC43 Not Detected (Not Detect); Human Metapneumovirus Not Detected (Not Detect); Human Rhinovirus/Enterovirus DETECTED (Not Detect); Influenza A Subtype 2009 H1 Not Detected (Not Detect); Influenza B Not Detected (Not Detect); Mycoplasma pneumoniae Not Detected (Not Detect); Parainfluenza Virus 1 Not Detected (Not Detect); Parainfluenza Virus 2 Not Detected (Not Detect); Parainfluenza Virus 3 Not Detected (Not Detect); Parainfluenza Virus 4 Not Detected (Not Detect); Respiratory Syncytial Virus Not Detected (Not Detect); SARS-CoV-2 Not Detected (Not Detect)
[2020-10-20] MEDS ORDERED: Naloxone 0.4 MG/ML INJ IVP PRN (01:33)
[2020-10-20] MEDS ORDERED: Melatonin 3 MG TABLET PO PRN (01:33)
[2020-10-20] MEDS ORDERED: Acetaminophen 325 MG TABLET PO PRN (01:33)
[2020-10-20] MEDS ORDERED: Ondansetron 4 MG/2 ML VIAL IVP PRN (01:33)
[2020-10-20 03:07] LABS: Eosinophils % 0.3 %; Hemoglobin 16.3 g/dL (11.5-15.4); Lymphocytes % 4.7 %; Red Cell Distribution Width 14.6 % (11.5-14.5)
[2020-10-20 03:09] LABS: Basophils # 0.1 K/mcL (0.0-0.2); Basophils % 0.4 %; Eosinophils # 0.1 K/mcL (0.0-0.6); Hematocrit 48.6 % (35.3-44.9); Immature Granulocytes % 0.4 % (0-4); Immature Platelets 8.7 % (1.1-6.1); Lymphocytes # 0.8 K/mcL (0.6-4.6); Mean Corpuscular HGB Conc 33.5 g/dL (31.6-35.5); Mean Corpuscular Hemoglobin 33.6 pg (28.0-33.3); Mean Corpuscular Volume 100.2 fL (83.0-100.0); Monocytes # 0.2 K/mcL (0.0-1.3); Monocytes % 1.2 %; Neutrophils # 14.8 K/mcL (1.6-8.9); Platelet Count 108 K/mcL (140-400); Red Blood Count 4.85 M/mcL (3.82-4.97); White Blood Count 15.9 K/mcL (4.3-11.1)
[2020-10-20 03:29] LABS: Alanine Aminotransferase 16 Units/L (7-52); Albumin/Globulin Ratio 1.3 (1.1-2.2); Alkaline Phosphatase 47 Units/L (34-104); Aspartate Amino Transferase 15 Units/L (13-39); BUN/Creatinine Ratio 20 (6-26); Bilirubin,Total 1.7 mg/dL (0.3-1.0); Blood Urea Nitrogen 15 mg/dL (8-23); Carbon Dioxide 23 mEq/L (23-29); Chloride 102 mEq/L (98-107); Glucose 162 mg/dL (70-105); Osmolality,Calculated 288 (280-300); Phosphorous 2.7 mg/dL (2.7-4.5); Potassium 3.6 mEq/L (3.5-5.1); Sodium 137 mEq/L (136-145); eGFR For African Americans > 60 (> 60); eGFR For Non-African Americans > 60 (> 60)
[2020-10-20 03:30] LABS: Troponin I < 0.03 ng/mL (< 0.04)
[2020-10-20] MEDS ORDERED: Albuterol 2.5 MG/3 ML NEBULIZER IH PRN (04:40)
[2020-10-20] MEDS ORDERED: Perflutren Lipid Microsphere 1.3 ML in 0.9 % Sodium Chloride 8.7 ML IVP PRN (04:49)
[2020-10-20] MEDS: Ipratropium/Albuterol Neb 3 ML IH SCH ×4 (05:50→22:29)
[2020-10-20] MEDS ORDERED: predniSONE 20 MG TABLET PO SCH (09:00)
[2020-10-20] MEDS: Doxycycline 100 MG CAPSULE PO SCH ×2 (09:13→20:36)
[2020-10-20] MEDS ORDERED: hydrOXYzine pamoate 25 MG CAPSULE PO PRN (15:01)
[2020-10-20] MEDS: MethylPREDNISolone 40 MG/ML VIAL IVP SCH (17:19)
[2020-10-20] MEDS: Furosemide 20 MG/2 ML VIAL IVP SCH (20:37)
[2020-10-20] MEDS ORDERED: carvediloL 6.25 MG TABLET PO SCH (21:00)
[2020-10-20] MEDS: Budesonide/Formoterol 160/4.5 1 PUFF INH IH SCH (22:29)
[2020-10-21] MEDS: Ipratropium/Albuterol Neb 3 ML IH SCH ×2 (03:48→11:13)
[2020-10-21] MEDS: MethylPREDNISolone 40 MG/ML VIAL IVP SCH (06:19)
[2020-10-21] MEDS ORDERED: carvediloL 6.25 MG TABLET PO SCH (08:45)
[2020-10-21] MEDS ORDERED: Aspirin 325 MG TABLET PO SCH (09:00)
[2020-10-21] MEDS ORDERED: lisinopriL 20 MG TABLET PO SCH (09:00)
[2020-10-21] MEDS ORDERED: allopurinoL 100 MG TABLET PO SCH (09:00)
[2020-10-21] MEDS ORDERED: Cholecalciferol (D-3) 1,000 UNIT (25MCG) TABLET PO SCH (09:00)
[2020-10-21] MEDS: Doxycycline 100 MG CAPSULE PO SCH (09:29)
[2020-10-21] MEDS: Furosemide 20 MG/2 ML VIAL IVP SCH (09:29)
[2020-10-21] MEDS: Budesonide/Formoterol 160/4.5 1 PUFF INH IH SCH (11:13)
[2020-10-21 11:58] VITALS: BP 109/56; PULSE 78; TEMP 97.8; O2SAT 93
== END 2020-10-21 13:14 | disposition home or self-care (01) ==
LOC: EMEROOARM 18:41 → 3ANU 18:41 → SUATTDRO 23:18 → 3ANU 23:59
PROVIDERS: ADMIT Internal Medicine; ATTEND Internal Medicine